=== PATIENT | male | born 1955 | race Caucasian/White ===

== ENCOUNTER 2018-09-11 10:29 | Inpatient (IN) ==
[2018-09-11] MEDS ORDERED: *HR* FentaNYL (PF) 100 MCG/2 ML VIAL ONE ×2 (11:14→15:10)
[2018-09-11] MEDS ORDERED: Ondansetron 4 MG/2 ML VIAL ONE (11:14)
[2018-09-11] MEDS ORDERED: Dexamethasone 4 MG/ML VIAL ONE (11:14)
[2018-09-11] MEDS ORDERED: Lidocaine -MPF 2% 2 ML VIAL ONE (11:14)
[2018-09-11] MEDS ORDERED: *HR* Succinylcholine 200 MG/10 ML VIAL IVP ONE (11:14)
[2018-09-11] MEDS ORDERED: *HR* Propofol 200 MG/20 ML VIAL IVP ONE (11:14)
--- NOTE | 2018-09-11 11:15 | Anesthesia Evaluation PreOp ---
Date of Encounter: 09/11/18 Time of Encounter: 11:00 - Past History Planned Operation: take down colostomy Cardiac History: [place], HTN, Hyperlipidemia, Arrhythmia (a.fib, chronic anticoagulant therapy, held for surgery), Other (poor functional capacity, left lower extremity amputee, uses wheelchair most of the time.) Pulmonary History: Denies Any Significant HX ART HISTORIAN History: CVA, TIA, Other (Evidence of stroke or some intracranial event. Patient has poor vision, is poor historian generally but is oriented to person, place and circumstance. Has poor memory.) Other Medical History: Diabetes Type II Anesthesia History: No Prior Anesthetic Complications, Past Anesthesia Alcohol Use: none Drug use: none Medications and Allergies Atorvastatin [Lipitor] 40 mg PO HS 06/10/18 [History] Clopidogrel [Plavix] 75 mg PO DAILY 06/10/18 [History] Folic Acid 1 mg PO DAILY 06/10/18 [History] Furosemide [Lasix] 60 mg PO DAILY 06/10/18 [History] Isosorbide MONOnitrate (24 HR) [Imdur] 30 mg PO DAILY 06/10/18 [History] Metoprolol Succinate [Toprol Xl] 25 mg PO DAILY 06/10/18 [History] Multivit,Th Iron,Other Min [Therems-M] 1 tab PO DAILY 06/10/18 [History] Potassium Chloride [K-Tab ER] 20 meq PO DAILY 06/10/18 [History] metFORMIN [Glucophage] 500 mg PO BIDWM 06/10/18 [History] Aspirin 81 mg PO DAILY 30 Days #30 tab.chew 06/22/18 [Rx] Omeprazole [PriLOSEC] 20 mg PO DAILY@0630 capsule. 06/22/18 [Rx] Allergy/AdvReac Type Severity Reaction Status Date / Time No Known Allergies Allergy Verified 06/09/18 23:56 - Meds/Allergy Pre-op Review Medications Reviewed: Yes Allergies Reviewed: Yes Beta Blockers on Current Med List: Yes Anesthesia Results - Labs Laboratory Tests 08/21/18 08/21/18 08/21/18 12:00 12:00 12:00 WBC 9.0 Hgb 12.5 L Hct 38.5 Plt Count 223 PT 12.5 H INR 1.1 APTT 34.0 Sodium 138 Potassium 4.3 Chloride 105 Carbon Dioxide 28 BUN 17 Creatinine 0.74 - Imaging EKG: report reviewed, image reviewed (a. fib, stable) Additional studies: EF EF 55%, severely dilated left atrium , dilated aortic root, normal LV function. CT of head chronic bilateral occipital infarcts, stable lacunar infarcts in left cerebellar hemisphere. Anesthesia Exam Selected Entries 09/11/18 10:56 Temperature 98.0 F Pulse Rate 81 Respiratory Rate 18 Blood Pressure 115/73 O2 Sat by Pulse Oximetry 98 Weight: 97 kg, BMI 33 NPO (# of Hours): over 8 hours - HEENT Pupil (Motor): Pupils equal Teeth: Edentulous Oral Opening: Greater than 3 (full matthews) - Cardiac Rhythm: Irregular Murmur: None - Pulmonary Breath Sounds: bilateral Clear Respiratory Effort: Symmetrical Anesthesia Assess/Plan ASA Score: 3 Level of consciousness: Cooperative Anesthetic Plan: General Monitoring Plan: Standard Monitors Recovery Plan: PACU (Discussed GA, risks. Agreed to proceed.)
[2018-09-11] MEDS ORDERED: CeFAZolin Syr 2,000MG/20 ML 2,000 MG/20 ML SYRINGE IVPB ONE (11:34)
[2018-09-11] MEDS ORDERED: MetroNIDAZOLE 500 MG/100 ML 500 MG/100 ML BAG IVPB ONE (11:41)
[2018-09-11] MEDS ORDERED: Ringers Solution, Lactated 1,000 ML IVC SCH (11:45)
--- NOTE | 2018-09-11 11:58 | General Surg History&Physical ---
Date of Encounter: 09/11/18 Time of Encounter: 11:56 Assessment and Plan (1) Status post Amanda procedure Current Visit: Yes Status: Acute 63M s/p noyola's procedure 2/2 sigmoid volvulus; now presents for takedown of colostomy; patient had thorough cardiac evaluation; okay to proceed with surgery; The assessment and plan as outlined above was discussed with the patient and/or family members who expressed understanding and agreement. All questions were answered. History of Present Illness Chief complaint: colostomy takedown HPI: Mr. Stone is a 63 year old male previously evaluated for sigmoid volvulus s/p Noyola's procedure. The patient's post operative course was complicated by concerns for TIA. He subsequently underwent a R CEA. He also had a colostomy and evaluation of the rectal stump without evidence of malignancy. He now presents for takedown of his colostomy. 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, tonsillectomy, colon resection (Amanda's procedure), neck-artery - Social History Smoking Status: Never smoker Smokeless Tobacco Status: No Alcohol use: none Drug use: none - Additional Family History Additional family history: non contributory Medications and Allergies Atorvastatin [Lipitor] 40 mg PO HS 06/10/18 [History] Clopidogrel [Plavix] 75 mg PO DAILY 06/10/18 [History] Folic Acid 1 mg PO DAILY 06/10/18 [History] Furosemide [Lasix] 60 mg PO DAILY 06/10/18 [History] Isosorbide MONOnitrate (24 HR) [Imdur] 30 mg PO DAILY 06/10/18 [History] Metoprolol Succinate [Toprol Xl] 25 mg PO DAILY 06/10/18 [History] Multivit,Th Iron,Other Min [Therems-M] 1 tab PO DAILY 06/10/18 [History] Potassium Chloride [K-Tab ER] 20 meq PO DAILY 06/10/18 [History] metFORMIN [Glucophage] 500 mg PO BIDWM 06/10/18 [History] Aspirin 81 mg PO DAILY 30 Days #30 tab.chew 06/22/18 [Rx] Omeprazole [PriLOSEC] 20 mg PO DAILY@0630 capsule. 06/22/18 [Rx] Allergy/AdvReac Type Severity Reaction Status Date / Time No Known Allergies Allergy Verified 06/09/18 23:56 Review of Systems All systems PM: 12 point ROS negative besides HPI findings General Surgery Exam Initial Vital Signs Temp Pulse Resp BP Pulse Ox 98.0 F 81 18 115/73 98 09/11/18 10:56 09/11/18 10:56 09/11/18 10:56 09/11/18 10:56 09/11/18 10:56 - General physical appearance no distress - Eyes normal ocular movement - ENT normocephalic - Neck no lymphadectomy - Respiratory normal expansion, normal respiratory effort - Cardiovascular Cardiovascular exam: Present: RRR - Abdomen Abdomen general surgery: Present: soft, non tender - Rectum Rectum: Present: other (viable and functioning colostomy) - Neurologic Present: CN 2-12 grossly intact - Musculoskeletal Present: normal posture - Psychiatric Psychiatric general surgery: Present: A&Ox3 Results - Labs All other labs normal.
[2018-09-11] MEDS ORDERED: *HR* Rocuronium Bromide 50 MG/5 ML VIAL ONE ×2 (12:27→14:40)
[2018-09-11] MEDS ORDERED: *HR* Morphine 2 MG/ML SYRINGE IVP PRN (13:26)
[2018-09-11] MEDS ORDERED: Ondansetron 4 MG/2 ML VIAL IVP ONE (13:26)
[2018-09-11] MEDS ORDERED: *HR* OxyCODONE Immed Rel 5 MG TABLET PO PRN (13:26)
[2018-09-11] MEDS ORDERED: *HR* Labetalol 20 MG/4 ML SYRINGE IVP PRN (13:26)
[2018-09-11] MEDS ORDERED: Dexamethasone 4 MG/ML VIAL IVP ONE (13:26)
[2018-09-11] MEDS ORDERED: *HR* Morphine 10 MG/ML VIAL ONE ×2 (14:13→15:44)
[2018-09-11] MEDS ORDERED: Neostigmine Methylsulfate 3 MG/3 ML SYRINGE ONE (15:44)
--- NOTE | 2018-09-11 16:39 | Operative Note ---
Date of procedure: 09/11/18 Pre-op diagnosis: Sigmoid Volvulus s/p Noyola's Post-op diagnosis: same Procedure: exploratory laparotomy lysis of adhesions colostomy takedown Implants: none Complications: none Anesthesia: GETA Local Anesthetics: 0.5% Sensorcaine HCL SubQ (cc) Surgeon: Jaime Reid Was there an dental office assistant present: Yes Photography Assistant: Donna Singer Estimated blood loss (cc): 150 Specimen: sigmoid colon, rectum, anastamotic ring Condition: stable Disposition: PACU Procedure in Detail: Patient was brought into the operating room suite. placed in supine position mechanical DT prophylaxis was placed patient underwent smooth induction of anesthesia preoperative antibitoics were given Patient was prepped and draped in the usual fashion A time out was held identifying correct patient, pathology, procedure, and physician I started by creating a circumferential incision around the colostomy within the skin using the cut function of the bovie. I dissected through the skin and soft tissue as well as adhesions until I was able to 1.) visualize the bowel wall and 2.) ensure that it was freed from the surrounding soft tissue the entire circumference of the colon used for the colostomy. i then used the 10 blade to cut through the midline incision through the abdominal wall layers until i entered the abdomen. Of note, there was significant scarring of the midline even through the subcutaneous tissue. I then retrieved the colon from the colostomy site into the abdomen. I was able to identify the rectal stump because of the prolene sutures. I then mobolize the rectal stump on the lateral and medial aspects as well as anteriorly. this allowed for about another 3cm of rectum for the anastamosis. I should include here that the patient did stop his ASA and plavix about 3-4 days prior to surgery so there was generalized oozing from the subutaneous tissue as well as the mesentery. This was all controlled with electrocautery. I then excited the distal end of the colon which was used for the colostomy, used the automatic pursestringer and dilated up to a size 29 for the EEA stapler. I inserted the anvil and secured the bowel to the anvl. I then turned my attention to the rectal stump, excised the edge containing the susan and prolene sutures and dilated up to accept a size 29 stapler. It was noted at this time that there was an unexpected amount of stool within the rectal stump. This was evacuated manually, but not completely. The stapler was inserted, the male part went inferior to the stapler in the midline of the staple line, connected with the anvil in the colon, and engaged to create the anastamosis. When looking at the anastamotic ring, I felt that the posterior wall was thin and questionable. I then made the decision to circumferentially reinforce the staple line with 3-0 silk. I then tested the anastamosis by filling the pelvis with saline and insufflating air through the rectum. I occluded the bowel p roximal to the anastamosis. The colon proximal to the anastamosis, but distal to where I occluded, did fill with air. There were no bubbles seen. This was tested multiple times with the same result. The anastamosis did seem a little edematous so I left a 19fr errol drain at the anastamosis along the posterior aspect. I then secured the drain with 3-0 prolene suture I closed the midline fascia with a running, looped PDS suture. I closed the fascia where the colostomy was sited in a running fashion with a #1 PDS suture. I used 3-0 vicryl to reapproximate the deep layer. I stapled the skin closed as well as the skin at the colostomy site. I concluded the procedure. I used all of the local anesthetic The patient tolerated the procedure and was escorted to PACU in stable cond ition.
--- NOTE | 2018-09-11 17:57 | Anesthesia Evaluation Post Op ---
Date of Encounter: 09/11/18 Time of Encounter: 15:25 - Vital Signs Vital Signs: Selected Entries 09/11/18 17:21 Temperature 97.9 F Pulse Rate 102 Respiratory Rate 12 Blood Pressure 124/87 O2 Sat by Pulse Oximetry 93 - Lungs Lungs: Clear Ascult./Percussion - Cardiovascular Regular Rate - Mental Status Mental Status: Alert & Oriented, Answers Appropriately - Nausea Vomiting Nausea Vomiting: Not Present - Hydration Hydration: NPO - Discharge PostOp Status: Transfer Patient to floor
[2018-09-11] MEDS ORDERED: Naloxone 0.4 MG/ML INJ IVP PRN ×2 (18:04)
[2018-09-11] MEDS ORDERED: *HR* Metoprolol 5 MG/5 ML VIAL IVP PRN (18:04)
[2018-09-11] MEDS: *HR* Morphine 30 MG/ 30 ML PCA IVC PRN (18:53)
[2018-09-11] MEDS: 0.9 % Sodium Chloride 1,000 ML IVC SCH (19:00)
[2018-09-12 06:34] LABS: Basophils % 0.1 %; Hematocrit 26.2 % (37.5-50.1); Hemoglobin 8.6 g/dL (12.9-16.9); Immature Granulocytes % 0.3 % (0-4); Lymphocytes # 0.6 K/mcL (0.6-4.6); Mean Corpuscular HGB Conc 32.8 g/dL (31.6-35.5); Mean Corpuscular Hemoglobin 31.2 pg (28.0-33.3); Mean Corpuscular Volume 94.9 fL (83.0-100.0); Mean Platelet Volume 11.6 fL (9.4-12.4); Monocytes # 1.3 K/mcL (0.0-1.3); Monocytes % 9.3 %; Neutrophils # 12.3 K/mcL (1.6-8.9); Platelet Count 175 K/mcL (140-400); Red Blood Count 2.76 M/mcL (4.19-5.50); Red Cell Distribution Width 13.5 % (11.5-14.5); Segmented Neutrophils % 86.3 %
[2018-09-12 06:52] LABS: BUN/Creatinine Ratio 13 (6-26); Blood Urea Nitrogen 19 mg/dL (8-23); Calcium 7.7 mg/dL (8.6-10.3); Carbon Dioxide 22 mEq/L (23-29); Chloride 111 mEq/L (98-107); Glucose 224 mg/dL (70-105); Magnesium 1.3 mg/dL (1.6-2.6); Osmolality,Calculated 299 (280-300); Phosphorous 3.7 mg/dL (2.7-4.5); Potassium 4.4 mEq/L (3.5-5.1); Sodium 140 mEq/L (136-145); eGFR For Non-African Americans 51 (> 60)
[2018-09-12] MEDS: Pantoprazole 40 MG VIAL IVP SCH (08:50)
[2018-09-12] MEDS: *HR* Heparin 5,000 UNIT/ML VIAL SQ SCH ×2 (08:50→18:38)
[2018-09-12] MEDS ORDERED: 0.9 % Sodium Chloride 500 ML IVC ONE ×3 (11:32→16:48)
[2018-09-12] MEDS ORDERED: Ondansetron 4 MG/2 ML VIAL IVP PRN (11:33)
[2018-09-12] MEDS ORDERED: D5% in 0.45% NACL w KCl 20 MEQ/1,000 ML MLS IVC SCH (12:00)
--- NOTE | 2018-09-12 14:43 | General Surgery Progress Note ---
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, add iv ofirmev daily dressing changes OOB to chair BID prn antiemetics diamond for acute urinary retention and dehydration/bolus 1 L NS, monitor UOP daily labs (2) Hypertension Current Visit: No Status: Chronic Qualifiers: Hypertension type: unspecified Qualified Code(s): I10 - Essential (primary) hypertension (3) Diabetes Current Visit: No Status: Chronic continue ivf hydration wiht NS MBS, SSI, monitor Qualifiers: Diabetes mellitus type: type 2 Diabetes mellitus retirement insulin use: without retirement use Diabetes mellitus complication status: with unspecified complications Qualified Code(s): E11.8 - Type 2 diabetes mellitus with unspecified complications (4) Acute kidney injury Current Visit: Yes Status: Acute bolus 1 L NS trend Cr monitor UOP (5) Urinary retention Current Visit: Yes Status: Acute diamond placed, monitor I/O's Subjective Patient reports: no new complaints, still having pain, no flatus, no bowel movement, nausea, afebrile Objective Vital Signs - Last 8 Hours Temp Pulse Resp BP Pulse Ox 09/12/18 11:58 97.6 F 96 15 94/52 92 09/12/18 06:48 97.8 F 108 14 96/60 94 Intake and Output 09/11/18 09/12/18 09/12/18 23:59 07:59 15:59 Intake Total 0 / 0 0 / 0 0 / 0 Output Total 220 / 220 40 / 40 320 / 320 Balance -220 / -220 -40 / -40 -320 / -320 Intake: Oral 0 / 0 0 / 0 0 / 0 Output: Urine 0 / 0 0 / 0 Estimated Blood Loss 150 / 150 Catheter 300 / 300 Wound Drainage 70 / 70 40 / 40 20 / 20 Right Lower Quadrant 50 / 50 40 / 40 20 / 20 Other: Meal NPO Percent of Meal Consumed 0% # Bowel Movements 0 0 Weight 97.1 kg Blood Glucose* 179 226 175 Patient Weight 09/12/18 23:59 Weight 97.1 kg - General physical appearance well developed, no distress, moderate pain - Eyes PERRL, normal ocular movement - ENT normal mucosa, normocephalic - Neck Neck exam: trachea midline - Respiratory normal expansion, clear to auscultation - Cardiovascular Cardiovascular exam: Present: RRR - Abdomen Abdomen: Present: soft, tender (appropriate post op tenderness). Absent: bowel sounds present, distended, guarding, rebound - Incision Incision: Present: swollen, clean and dry, intact - Rectum normal sphincter tone - Integumentary no growths - Neurologic CN 2-12 grossly intact - Musculoskeletal normal posture - Psychiatric oriented to time, oriented to person, oriented to place, speech is normal, memory intact - Labs 09/12/18 05:59 09/12/18 05:59 Diabetes panel 09/12/18 Range/Units 05:59 Sodium 140 (136-145) mEq/L Potassium 4.4 (3.5-5.1) mEq/L Chloride 111 H (98-107) mEq/L Carbon Dioxide 22 L (23-29) mEq/L BUN 19 (8-23) mg/dL Creatinine 1.41 H (0.70-1.30) mg/dL Glucose 224 H (70-105) mg/dL Calcium 7.7 L (8.6-10.3) mg/dL Calcium panel 09/12/18 Range/Units 05:59 Calcium 7.7 L (8.6-10.3) mg/dL Phosphorus 3.7 (2.7-4.5) mg/dL Pituitary panel 09/12/18 Range/Units 05:59 Sodium 140 (136-145) mEq/L Potassium 4.4 (3.5-5.1) mEq/L Chloride 111 H (98-107) mEq/L Carbon Dioxide 22 L (23-29) mEq/L BUN 19 (8-23) mg/dL Creatinine 1.41 H (0.70-1.30) mg/dL Glucose 224 H (70-105) mg/dL Calcium 7.7 L (8.6-10.3) mg/dL Adrenal panel 09/12/18 Range/Units 05:59 Sodium 140 (136-145) mEq/L Potassium 4.4 (3.5-5.1) mEq/L Chloride 111 H (98-107) mEq/L Carbon Dioxide 22 L (23-29) mEq/L BUN 19 (8-23) mg/dL Creatinine 1.41 H (0.70-1.30) mg/dL Glucose 224 H (70-105) mg/dL Calcium 7.7 L (8.6-10.3) mg/dL - VTE Documentation of Mechanical Device: Intermittent pneumatic compression device Consult Discharge Plan - Plan Referrals: Herbert Sargent MD [Primary Care Provider] -
[2018-09-12] MEDS ORDERED: *HR* Dextrose 50 % in Water (Syg) 50 ML SYRINGE IVP PRN (14:44)
[2018-09-12] MEDS ORDERED: Dextrose Gel 15 GM/37.5 ML TUBE PO PRN ×2 (14:44)
[2018-09-12] MEDS ORDERED: D5% in Water 1,000 ML IVC PRN (14:44)
[2018-09-12] MEDS ORDERED: 0.9 % Sodium Chloride 500 ML ONE (15:14)
[2018-09-12] MEDS: Acetaminophen IV 1,000 MG/100 ML INFUS..BTL IVPB SCH (17:43)
[2018-09-12] MEDS: 0.9 % Sodium Chloride 1,000 ML IVC SCH ×2 (18:00→20:11)
[2018-09-12 18:14] LABS: Basophils % 0.1 %; Hematocrit 22.8 % (37.5-50.1); Hemoglobin 7.5 g/dL (12.9-16.9); Immature Granulocytes % 0.4 % (0-4); Lymphocytes % 7.3 %; Mean Corpuscular HGB Conc 32.9 g/dL (31.6-35.5); Mean Corpuscular Hemoglobin 31.6 pg (28.0-33.3); Mean Corpuscular Volume 96.2 fL (83.0-100.0); Mean Platelet Volume 10.5 fL (9.4-12.4); Monocytes # 1.8 K/mcL (0.0-1.3); Monocytes % 13.1 %; Neutrophils # 10.6 K/mcL (1.6-8.9); Platelet Count 152 K/mcL (140-400); Red Blood Count 2.37 M/mcL (4.19-5.50); Red Cell Distribution Width 13.6 % (11.5-14.5); Segmented Neutrophils % 79.1 %
[2018-09-12] MEDS: Insulin LISPRO 300 UNITS/3 ML VIAL SQ SCH (18:37)
[2018-09-12] MEDS ORDERED: 0.9 % Sodium Chloride 250 ML ONE (22:26)
[2018-09-13] MEDS: Acetaminophen IV 1,000 MG/100 ML INFUS..BTL IVPB SCH ×5 (01:00→23:33)
[2018-09-13] MEDS: 0.9 % Sodium Chloride 1,000 ML IVC SCH ×4 (02:45→23:31)
[2018-09-13] MEDS ORDERED: 0.9 % Sodium Chloride 250 ML ONE (02:58)
[2018-09-13] MEDS: Insulin LISPRO 300 UNITS/3 ML VIAL SQ SCH ×5 (03:26→23:31)
[2018-09-13 07:52] LABS: Basophils % 0.2 %; Eosinophils % 0.2 %; Hemoglobin 8.9 g/dL (12.9-16.9); Immature Granulocytes % 0.3 % (0-4); Lymphocytes # 1.4 K/mcL (0.6-4.6); Lymphocytes % 11.6 %; Mean Corpuscular Hemoglobin 31.1 pg (28.0-33.3); Mean Corpuscular Volume 94.4 fL (83.0-100.0); Mean Platelet Volume 10.8 fL (9.4-12.4); Monocytes # 1.5 K/mcL (0.0-1.3); Monocytes % 12.4 %; Neutrophils # 9.4 K/mcL (1.6-8.9); Platelet Count 125 K/mcL (140-400); Red Blood Count 2.86 M/mcL (4.19-5.50); Red Cell Distribution Width 14.3 % (11.5-14.5); Segmented Neutrophils % 75.3 %
[2018-09-13] MEDS: *HR* Morphine 30 MG/ 30 ML PCA IVC PRN (08:11)
[2018-09-13 08:18] LABS: BUN/Creatinine Ratio 18 (6-26); Blood Urea Nitrogen 25 mg/dL (8-23); Calcium 7.5 mg/dL (8.6-10.3); Carbon Dioxide 19 mEq/L (23-29); Chloride 117 mEq/L (98-107); Glucose 122 mg/dL (70-105); Magnesium 1.8 mg/dL (1.6-2.6); Osmolality,Calculated 302 (280-300); Phosphorous 2.2 mg/dL (2.7-4.5); Potassium 4.1 mEq/L (3.5-5.1); Sodium 143 mEq/L (136-145); eGFR For Non-African Americans 53 (> 60)
[2018-09-13] MEDS: Pantoprazole 40 MG VIAL IVP SCH (09:36)
--- NOTE | 2018-09-13 12:12 | General Surgery Progress Note ---
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 Diabetes mellitus complication status: with unspecified complications Qualified Code(s): E11.8 - Type 2 diabetes mellitus with unspec ified complications (4) Acute kidney injury Current Visit: Yes Status: Acute continue diamond continue ivf trend Cr monitor UOP (5) Urinary retention Current Visit: Yes Status: Acute continue diamond Subjective Patient reports: no new complaints, still having pain, pain is less, no flatus, no bowel movement, afebrile Objective Vital Signs - Last 8 Hours Temp Pulse Resp BP Pulse Ox 09/13/18 09:00 97.5 F L 100 15 97/60 96 09/13/18 06:19 97.6 F 103 14 113/69 Intake and Output 09/12/18 09/13/18 09/13/18 23:59 07:59 15:59 Intake Total 1204 / 1204 1894 / 1894 1000 / 1000 Output Total 685 / 685 Balance 1191 / 1191 1894 / 1894 315 / 315 Intake: IV Fluids 1204 / 1204 1194 / 1194 1000 / 1000 0.9 % Sodium Chloride 1,000 ML 1000 / 1000 1000 / 1000 @ 125 mls/hr IVC .Q8H [facility] Rx#: [id number] 0.9 % Sodium Chloride 500 ML @ 1000 / 1000 999 mls/hr IVC .Q31M ONE Rx#: [id number] Ofirmev 1,000 mg/100 ml 1,000 100 / 100 194 / 194 mg In 100 ml @ 400 mls/hr IVPB Q6HR [facility] Rx#:[id number] Magnesium Sulfate 2 GM In 0.9 % 104 / 104 Sodium Chloride 100 ML @ 104 mls/hr IVPB ONCE ONE Rx#: [id number] Oral 0 / 0 0 / 0 0 / 0 Blood Product 0 / 0 700 / 700 Rbcs Leuko Poor As-1 Unit 350 / 350 [id number] Rbcs Leuko Poor As-1 Unit 0 / 0 350 / 350 [id number] Output: Urine 0 / 0 Catheter 650 / 650 Wound Drainage Right Lower Quadrant Other: Meal npo Percent of Meal Consumed 0% Blood Glucose* 142 118 - General physical appearance well developed, no distress, other (pale) - Eyes normal ocular movement - ENT dry mucosa, normocephalic - Neck Neck exam: trachea midline - Respiratory normal expansion, clear to auscultation - Cardiovascular Cardiovascular exam: Present: RRR - Abdomen Abdomen: Present: bowel sounds present, soft, tender (appropriate post op tenderness). Absent: guarding, rebound Additional Comments: PAPITO drain serous drainage - Incision Incision: Present: clean and dry, open (packed -serosang drainage) - Genitourinary other (diamond with clear yellow urine) - Integumentary no rash, no growths - Musculoskeletal normal posture - Psychiatric oriented to time, oriented to person, oriented to place, speech is normal, memory intact - Labs 09/13/18 07:40 09/13/18 07:40 Diabetes panel 09/13/18 Range/Units 07:40 Sodium 143 (136-145) mEq/L Potassium 4.1 (3.5-5.1) mEq/L Chloride 117 H (98-107) mEq/L Carbon Dioxide 19 L (23-29) mEq/L BUN 25 H (8-23) mg/dL Creatinine 1.36 H (0.70-1.30) mg/dL Glucose 122 H (70-105) mg/dL Calcium 7.5 L (8.6-10.3) mg/dL Calcium panel 09/13/18 Range/Units 07:40 Calcium 7.5 L (8.6-10.3) mg/dL Phosphorus 2.2 L (2.7-4.5) mg/dL Pituitary panel 09/13/18 Range/Units 07:40 Sodium 143 (136-145) mEq/L Potassium 4.1 (3.5-5.1) mEq/L Chloride 117 H (98-107) mEq/L Carbon Dioxide 19 L (23-29) mEq/L BUN 25 H (8-23) mg/dL Creatinine 1.36 H (0.70-1.30) mg/dL Glucose 122 H (70-105) mg/dL Calcium 7.5 L (8.6-10.3) mg/dL Adrenal panel 09/13/18 Range/Units 07:40 Sodium 143 (136-145) mEq/L Potassium 4.1 (3.5-5.1) mEq/L Chloride 117 H (98-107) mEq/L Carbon Dioxide 19 L (23-29) mEq/L BUN 25 H (8-23) mg/dL Creatinine 1.36 H (0.70-1.30) mg/dL Glucose 122 H (70-105) mg/dL Calcium 7.5 L (8.6-10.3) mg/dL - VTE Documentation of Mechanical Device: Intermittent pneumatic compression device Consult Discharge Plan - Plan Referrals: Herbert Sargent MD [Primary Care Provider] -
[2018-09-14] MEDS: 0.9 % Sodium Chloride 1,000 ML IVC SCH ×3 (04:25→22:00)
[2018-09-14 05:14] LABS: Basophils # 0.1 K/mcL (0.0-0.2); Basophils % 0.6 %; Eosinophils # 0.2 K/mcL (0.0-0.6); Eosinophils % 2.1 %; Hemoglobin 8.2 g/dL (12.9-16.9); Immature Granulocytes % 0.4 % (0-4); Lymphocytes # 1.2 K/mcL (0.6-4.6); Lymphocytes % 12.8 %; Mean Corpuscular HGB Conc 32.8 g/dL (31.6-35.5); Mean Corpuscular Hemoglobin 31.2 pg (28.0-33.3); Mean Corpuscular Volume 95.1 fL (83.0-100.0); Monocytes % 11.4 %; Neutrophils # 6.5 K/mcL (1.6-8.9); Platelet Count 118 K/mcL (140-400); Red Blood Count 2.63 M/mcL (4.19-5.50); Red Cell Distribution Width 14.4 % (11.5-14.5); Segmented Neutrophils % 72.7 %
[2018-09-14 05:33] LABS: BUN/Creatinine Ratio 16 (6-26); Blood Urea Nitrogen 14 mg/dL (8-23); Calcium 7.6 mg/dL (8.6-10.3); Carbon Dioxide 21 mEq/L (23-29); Chloride 112 mEq/L (98-107); Glucose 89 mg/dL (70-105); Magnesium 1.7 mg/dL (1.6-2.6); Osmolality,Calculated 292 (280-300); Phosphorous 1.9 mg/dL (2.7-4.5); Potassium 3.6 mEq/L (3.5-5.1); Sodium 141 mEq/L (136-145); eGFR For Non-African Americans > 60 (> 60)
[2018-09-14] MEDS: Acetaminophen IV 1,000 MG/100 ML INFUS..BTL IVPB SCH ×3 (06:00→18:59)
[2018-09-14] MEDS: Insulin LISPRO 300 UNITS/3 ML VIAL SQ SCH ×3 (06:23→17:03)
[2018-09-14] MEDS ORDERED: Calcium Gluconate 2,000 MG in 0.9 % Sodium Chloride 100 ML IVPB ONE (08:07)
[2018-09-14] MEDS ORDERED: Potassium Phosphate 44 MEQ in 0.9 % Sodium Chloride 250 ML IVPB ONE (08:07)
--- NOTE | 2018-09-14 08:12 | General Surgery Progress Note ---
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 while awake Gi: NPO except ice chips; start TPN today; cont IV protonix; awaiting return of bowel function Gu: cont with diamond catheter for monitoring of UOP; will plan for possible d/c on 09/15 ID: WBC wnl; afebrile; if normal tomorrow, okay to stop checking heme: trend h/h; may need another transfusion if he continues to drop his h/h endo: glucose wnl; cont to monitor MSK: OOBTC, PT/OT FEN: start TPN today; hypocalcemia (give calcium gluconate), hypomagnesemia (give magnesium sulfate); hypophosphatemia and hypokalemia (give potassium phosphate); okay for ice chips; Disp: cont cares on floor; Subjective Patient reports: no new complaints, feels better, still having pain, pain is less (rated 5/10), no flatus, no bowel movement, afebrile, other (urinary retention over the weekend; good UOP; currently on ice chips; ) Objective Vital Signs - Last 8 Hours Temp Pulse Resp BP Pulse Ox 09/14/18 07:38 97.6 F 91 16 137/83 98 09/14/18 04:29 97.5 F L 100 18 163/84 97 Intake and Output 09/13/18 09/14/18 09/14/18 23:59 07:59 15:59 Intake Total 1250 / 1250 1050 / 1050 Output Total 600 / 600 600 / 600 Balance 650 / 650 450 / 450 Intake: IV Fluids 1200 / 1200 1000 / 1000 0.9 % Sodium Chloride 1,000 ML 1000 / 1000 1000 / 1000 @ 125 mls/hr IVC .Q8H [facility] Rx#: [id number] Ofirmev 1,000 mg/100 ml 1,000 200 / 200 mg In 100 ml @ 400 mls/hr IVPB Q6HR [facility] Rx#:[id number] Oral 50 / 50 50 / 50 Output: Catheter 550 / 550 600 / 600 Wound Drainage 50 / 50 0 / 0 Right Lower Quadrant 50 / 50 0 / 0 Other: Blood Glucose* 97 96 - General physical appearance no distress - ENT normocephalic - Neck Neck exam: no lymphadectomy - Respiratory normal expansion, normal respiratory effort - Cardiovascular Cardiovascular exam: Present: RRR - Abdomen Abdomen: Present: soft, tender (appropriately tender along incision) - Incision Incision: Present: clean and dry, intact - Neurologic CN 2-12 grossly intact - Labs 09/14/18 04:57 09/14/18 04:57 Diabetes panel 09/13/18 09/14/18 Range/Units 07:40 04:57 Sodium 143 141 (136-145) mEq/L Potassium 4.1 3.6 (3.5-5.1) mEq/L Chloride 117 H 112 H (98-107) mEq/L Carbon Dioxide 19 L 21 L (23-29) mEq/L BUN 25 H 14 (8-23) mg/dL Creatinine 1.36 H 0.85 (0.70-1.30) mg/dL Glucose 122 H 89 (70-105) mg/dL Calcium 7.5 L 7.6 L (8.6-10.3) mg/dL Calcium panel 09/13/18 09/14/18 Range/Units 07:40 04:57 Calcium 7.5 L 7.6 L (8.6-10.3) mg/dL Phosphorus 2.2 L 1.9 L (2.7-4.5) mg/dL Pituitary panel 09/13/18 09/14/18 Range/Units 07:40 04:57 Sodium 143 141 (136-145) mEq/L Potassium 4.1 3.6 (3.5-5.1) mEq/L Chloride 117 H 112 H (98-107) mEq/L Carbon Dioxide 19 L 21 L (23-29) mEq/L BUN 25 H 14 (8-23) mg/dL Creatinine 1.36 H 0.85 (0.70-1.30) mg/dL Glucose 122 H 89 (70-105) mg/dL Calcium 7.5 L 7.6 L (8.6-10.3) mg/dL Adrenal panel 09/13/18 09/14/18 Range/Units 07:40 04:57 Sodium 143 141 (136-145) mEq/L Potassium 4.1 3.6 (3.5-5.1) mEq/L Chloride 117 H 112 H (98-107) mEq/L Carbon Dioxide 19 L 21 L (23-29) mEq/L BUN 25 H 14 (8-23) mg/dL Creatinine 1.36 H 0.85 (0.70-1.30) mg/dL Glucose 122 H 89 (70-105) mg/dL Calcium 7.5 L 7.6 L (8.6-10.3) mg/dL - VTE Documentation of Mechanical Device: Intermittent pneumatic compression device Consult Discharge Plan - Plan Referrals: Herbert Sargent MD [Primary Care Provider] -
[2018-09-14] MEDS ORDERED: Lidocaine -MPF 1% 5 ML AMPUL INFILT ONE ×2 (08:26→12:23)
[2018-09-14] MEDS: Pantoprazole 40 MG VIAL IVP SCH (09:21)
[2018-09-14] MEDS ORDERED: D10% in Water 500 ML IVC PRN (13:00)
[2018-09-14] MEDS: *HR* Metoprolol 5 MG/5 ML VIAL IVP SCH ×2 (13:25→18:21)
[2018-09-14] MEDS ORDERED: Clinimix E 5%-15% SOLUTION 2,000 ML with MVI, adult with vitamin K 10 ML IVC SCH (17:00)
[2018-09-15] MEDS: Acetaminophen IV 1,000 MG/100 ML INFUS..BTL IVPB SCH ×4 (01:29→17:27)
[2018-09-15] MEDS: *HR* Metoprolol 5 MG/5 ML VIAL IVP SCH ×5 (01:31→17:28)
[2018-09-15] MEDS: Insulin LISPRO 300 UNITS/3 ML VIAL SQ SCH ×4 (01:39→17:28)
[2018-09-15] MEDS: 0.9 % Sodium Chloride 1,000 ML IVC SCH ×3 (06:57→23:28)
[2018-09-15 07:33] LABS: BUN/Creatinine Ratio 14 (6-26); Blood Urea Nitrogen 8 mg/dL (8-23); Calcium 7.6 mg/dL (8.6-10.3); Carbon Dioxide 24 mEq/L (23-29); Chloride 112 mEq/L (98-107); Glucose 143 mg/dL (70-105); Magnesium 1.8 mg/dL (1.6-2.6); Osmolality,Calculated 291 (280-300); Phosphorous 2.2 mg/dL (2.7-4.5); Potassium 3.4 mEq/L (3.5-5.1); Sodium 140 mEq/L (136-145); Triglycerides 86 mg/dL (< 150); eGFR For Non-African Americans > 60 (> 60)
[2018-09-15] MEDS: Pantoprazole 40 MG VIAL IVP SCH (07:42)
[2018-09-15] MEDS ORDERED: Potassium Phosphate 44 MEQ in 0.9 % Sodium Chloride 250 ML IVPB ONE (07:59)
--- NOTE | 2018-09-15 08:16 | General Surgery Progress Note ---
Date of Encounter: 09/15/18 Time of Encounter: 08:10 - Assessment and Plan (1) Status post Amanda procedure Current Visit: Yes Status: Acute 63M POD #4 s/p colostomy takedown; post operatively with urinary retention and electrolyte abnormalities; cont pain regimen PT/OT, pulm toileting cont TPN, cont with ice chips; await return of bowel function replace electrolytes chemical DVt prophylaxis if h/h stable Subjective Patient reports: no new complaints, still having pain, pain is less, no flatus (although he feels as if he could have flatus) Objective Vital Signs - Last 8 Hours Temp Pulse Resp BP Pulse Ox 09/15/18 07:02 97.8 F 71 16 151/83 98 09/15/18 03:17 97.4 F L 80 14 156/101 99 Intake and Output 09/14/18 09/15/18 09/15/18 23:59 07:59 15:59 Intake Total 1480 / 1480 2185 / 2185 Output Total 1190 / 1190 1160 / 1160 Balance 290 / 290 1025 / 1025 Intake: IV Fluids 1360 / 1360 2185 / 2185 0.9 % Sodium Chloride 1,000 ML 1000 / 1000 1000 / 1000 @ 125 mls/hr IVC .Q8H [facility] Rx#: [id number] Clinimix E 5%-15% SOLUTION 2, 735 / 735 000 ML @ 50 mls/hr IVC .Q24H [facility] with M.v.i. Adult 10 ml Rx# :[id number] Ofirmev 1,000 mg/100 ml 1,000 100 / 100 200 / 200 mg In 100 ml @ 400 mls/hr IVPB Q6HR [facility] Rx#:[id number] Intralipid 20% 250 ML @ 21 mls/ 250 / 250 hr IVPB DAILY@1700 [facility] Rx#: [id number] Oral 120 / 120 0 / 0 Output: Catheter 1100 / 1100 1100 / 1100 Wound Drainage 90 / 90 60 / 60 Right Lower Quadrant 90 / 90 60 / 60 Other: Weight 100 kg Blood Glucose* 128 156 Patient Weight 09/15/18 23:59 Weight 100 kg - General physical appearance no distress - Respiratory normal expansion, normal respiratory effort - Cardiovascular Cardiovascular exam: Present: RRR - Abdomen Abdomen: Present: soft, tender (appropriatley tender to palpation) - Incision Incision: Present: clean and dry, intact - Neurologic CN 2-12 grossly intact - Labs 09/14/18 04:57 09/15/18 05:40 Diabetes panel 09/15/18 Range/Units 05:40 Sodium 140 (136-145) mEq/L Potassium 3.4 L (3.5-5.1) mEq/L Chloride 112 H (98-107) mEq/L Carbon Dioxide 24 (23-29) mEq/L BUN 8 (8-23) mg/dL Creatinine 0.56 L (0.70-1.30) mg/dL Glucose 143 H (70-105) mg/dL Calcium 7.6 L (8.6-10.3) mg/dL Triglycerides 86 (< 150) mg/dL Calcium panel 09/15/18 Range/Units 05:40 Calcium 7.6 L (8.6-10.3) mg/dL Phosphorus 2.2 L (2.7-4.5) mg/dL Pituitary panel 09/15/18 Range/Units 05:40 Sodium 140 (136-145) mEq/L Potassium 3.4 L (3.5-5.1) mEq/L Chloride 112 H (98-107) mEq/L Carbon Dioxide 24 (23-29) mEq/L BUN 8 (8-23) mg/dL Creatinine 0.56 L (0.70-1.30) mg/dL Glucose 143 H (70-105) mg/dL Calcium 7.6 L (8.6-10.3) mg/dL Adrenal panel 09/15/18 Range/Units 05:40 Sodium 140 (136-145) mEq/L Potassium 3.4 L (3.5-5.1) mEq/L Chloride 112 H (98-107) mEq/L Carbon Dioxide 24 (23-29) mEq/L BUN 8 (8-23) mg/dL Creatinine 0.56 L (0.70-1.30) mg/dL Glucose 143 H (70-105) mg/dL Calcium 7.6 L (8.6-10.3) mg/dL - VTE Documentation of Mechanical Device: Intermittent pneumatic compression device Consult Discharge Plan - Plan Referrals: Herbert Sargent MD [Primary Care Provider] -
[2018-09-15 08:24] LABS: Basophils % 0.4 %; Eosinophils # 0.2 K/mcL (0.0-0.6); Eosinophils % 3.1 %; Hematocrit 24.5 % (37.5-50.1); Immature Granulocytes % 0.3 % (0-4); Lymphocytes # 0.9 K/mcL (0.6-4.6); Lymphocytes % 11.1 %; Mean Corpuscular HGB Conc 32.7 g/dL (31.6-35.5); Mean Corpuscular Hemoglobin 30.7 pg (28.0-33.3); Mean Corpuscular Volume 93.9 fL (83.0-100.0); Mean Platelet Volume 11.4 fL (9.4-12.4); Monocytes # 0.7 K/mcL (0.0-1.3); Monocytes % 9.3 %; Neutrophils # 5.9 K/mcL (1.6-8.9); Platelet Count 115 K/mcL (140-400); Red Blood Count 2.61 M/mcL (4.19-5.50); Red Cell Distribution Width 13.8 % (11.5-14.5); Segmented Neutrophils % 75.8 %
[2018-09-15] MEDS: *HR* Morphine 30 MG/ 30 ML PCA IVC PRN (14:44)
[2018-09-15] MEDS ORDERED: Clinimix E 5%-15% SOLUTION 2,000 ML with MVI, adult with vitamin K 10 ML IVC SCH (17:00)
[2018-09-16] MEDS: Insulin LISPRO 300 UNITS/3 ML VIAL SQ SCH ×4 (00:34→17:40)
[2018-09-16] MEDS: *HR* Metoprolol 5 MG/5 ML VIAL IVP SCH ×4 (00:35→17:39)
[2018-09-16] MEDS: Acetaminophen IV 1,000 MG/100 ML INFUS..BTL IVPB SCH ×4 (00:35→17:38)
[2018-09-16 06:46] LABS: BUN/Creatinine Ratio 20 (6-26); Blood Urea Nitrogen 10 mg/dL (8-23); Carbon Dioxide 25 mEq/L (23-29); Chloride 110 mEq/L (98-107); Glucose 182 mg/dL (70-105); Magnesium 1.9 mg/dL (1.6-2.6); Osmolality,Calculated 294 (280-300); Phosphorous 2.8 mg/dL (2.7-4.5); Potassium 3.3 mEq/L (3.5-5.1); Sodium 140 mEq/L (136-145); eGFR For Non-African Americans > 60 (> 60)
[2018-09-16] MEDS: Pantoprazole 40 MG VIAL IVP SCH (07:18)
[2018-09-16 08:11] LABS: Hematocrit 28.7 % (37.5-50.1); Hemoglobin 9.5 g/dL (12.9-16.9)
[2018-09-16] MEDS ORDERED: Potassium Phosphate 44 MEQ in 0.9 % Sodium Chloride 250 ML IVPB ONE (08:31)
--- NOTE | 2018-09-16 08:32 | General Surgery Progress Note ---
Date of Encounter: 09/16/18 Time of Encounter: 08:29 - Assessment and Plan (1) Status post Amanda procedure Current Visit: Yes Status: Acute 63M POD #5 s/p colostomy takedown; post operatively with urinary retention and electrolyte abnormalities; cont pain regimen PT/OT, pulm toileting cont TPN, cont with ice chips; possible sips of clears; would prefer flatus first replace electrolytes chemical DVt prophylaxis d/c diamond Subjective Patient reports: no new complaints, feels better, still having pain, pain is less, bowel movement (bloody stool likely related to anastamosis; cannot recall flatus) Objective Vital Signs - Last 8 Hours Temp Pulse Resp BP Pulse Ox 09/16/18 07:10 98.4 F 68 13 144/80 94 09/16/18 04:11 98.0 F 80 14 181/83 98 Intake and Output 09/15/18 09/16/18 09/16/18 23:59 07:59 15:59 Intake Total 760 / 760 2551 / 2551 Output Total 310 / 310 1500 / 1500 0 / 0 Balance 450 / 450 1051 / 1051 0 / 0 Intake: IV Fluids 760 / 760 2311 / 2311 0.9 % Sodium Chloride 1,000 ML 400 / 400 839 / 839 @ 125 mls/hr IVC .Q8H [facility] Rx#: [id number] Clinimix E 5%-15% SOLUTION 2, 1022 / 1022 000 ML @ 70 mls/hr IVC .Q24H [facility] with M.v.i. Adult 10 ml Rx# :[id number] Ofirmev 1,000 mg/100 ml 1,000 100 / 100 200 / 200 mg In 100 ml @ 400 mls/hr IVPB Q6HR [facility] Rx#:[id number] Intralipid 20% 250 ML @ 21 mls/ 250 / 250 hr IVPB DAILY@1700 [facility] Rx#: [id number] Potassium Phosphate 44 MEQ In 0 260 / 260 .9 % Sodium Chloride 250 ML @ 40 mls/hr IVPB ONCE ONE Rx#: [id number] Oral 0 / 0 240 / 240 Output: Catheter 200 / 200 1350 / 1350 Wound Drainage 110 / 110 150 / 150 0 / 0 Right Lower Quadrant 110 / 110 150 / 150 0 / 0 Other: Meal NPO DINNER Stool Size Small Stool Color Brown Blood Tinged Blood Glucose* 140 139 - General physical appearance no distress - Respiratory normal expansion, normal respiratory effort - Cardiovascular Cardiovascular exam: Present: RRR - Abdomen Abdomen: Present: soft, non tender - Incision Incision: Present: clean and dry, intact - Integumentary no rash - Musculoskeletal normal posture - Labs 09/16/18 06:08 09/16/18 06:08 Diabetes panel 09/16/18 Range/Units 06:08 Sodium 140 (136-145) mEq/L Potassium 3.3 L (3.5-5.1) mEq/L Chloride 110 H (98-107) mEq/L Carbon Dioxide 25 (23-29) mEq/L BUN 10 (8-23) mg/dL Creatinine 0.50 L (0.70-1.30) mg/dL Glucose 182 H (70-105) mg/dL Calcium 8.0 L (8.6-10.3) mg/dL Calcium panel 09/16/18 Range/Units 06:08 Calcium 8.0 L (8.6-10.3) mg/dL Phosphorus 2.8 (2.7-4.5) mg/dL Pituitary panel 09/16/18 Range/Units 06:08 Sodium 140 (136-145) mEq/L Potassium 3.3 L (3.5-5.1) mEq/L Chloride 110 H (98-107) mEq/L Carbon Dioxide 25 (23-29) mEq/L BUN 10 (8-23) mg/dL Creatinine 0.50 L (0.70-1.30) mg/dL Glucose 182 H (70-105) mg/dL Calcium 8.0 L (8.6-10.3) mg/dL Adrenal panel 09/16/18 Range/Units 06:08 Sodium 140 (136-145) mEq/L Potassium 3.3 L (3.5-5.1) mEq/L Chloride 110 H (98-107) mEq/L Carbon Dioxide 25 (23-29) mEq/L BUN 10 (8-23) mg/dL Creatinine 0.50 L (0.70-1.30) mg/dL Glucose 182 H (70-105) mg/dL Calcium 8.0 L (8.6-10.3) mg/dL - VTE Documentation of Mechanical Device: Intermittent pneumatic compression device Consult Discharge Plan - Plan Referrals: Herbert Sargent MD [Primary Care Provider] -
[2018-09-16] MEDS: 0.9 % Sodium Chloride 1,000 ML IVC SCH ×2 (09:17→14:30)
[2018-09-16] MEDS ORDERED: Clinimix E 5%-15% SOLUTION 2,000 ML with MVI, adult with vitamin K 10 ML IVC SCH (17:00)
[2018-09-17] MEDS: Acetaminophen IV 1,000 MG/100 ML INFUS..BTL IVPB SCH ×4 (00:31→18:11)
[2018-09-17] MEDS: *HR* Metoprolol 5 MG/5 ML VIAL IVP SCH ×2 (00:33→05:50)
[2018-09-17] MEDS: Insulin LISPRO 300 UNITS/3 ML VIAL SQ SCH ×4 (01:01→17:00)
[2018-09-17 04:55] LABS: BUN/Creatinine Ratio 29 (6-26); Blood Urea Nitrogen 15 mg/dL (8-23); Calcium 7.8 mg/dL (8.6-10.3); Carbon Dioxide 25 mEq/L (23-29); Chloride 109 mEq/L (98-107); Glucose 149 mg/dL (70-105); Magnesium 1.9 mg/dL (1.6-2.6); Osmolality,Calculated 292 (280-300); Phosphorous 3.4 mg/dL (2.7-4.5); Potassium 3.4 mEq/L (3.5-5.1); Sodium 139 mEq/L (136-145); eGFR For Non-African Americans > 60 (> 60)
[2018-09-17] MEDS: *HR* Morphine 30 MG/ 30 ML PCA IVC PRN (07:39)
[2018-09-17] MEDS: 0.9 % Sodium Chloride 1,000 ML IVC SCH ×4 (07:51→22:30)
--- NOTE | 2018-09-17 09:47 | General Surgery Progress Note ---
Date of Encounter: 09/17/18 Time of Encounter: 09:46 - Assessment and Plan (1) S/P colostomy takedown Current Visit: Yes Status: Acute Continue with dressing changes. Will start patient on full liquids today. Continue to observe. Subjective Patient reports: no new complaints, other (She states that he is drinking clears and not having any nausea. States that he had 2 bowel movements; one yesterday and one early this morning. He described them as being liquid in nature.) Objective Vital Signs - Last 8 Hours Temp Pulse Resp BP Pulse Ox 09/17/18 06:39 98.1 F 67 14 130/78 97 09/17/18 03:10 98.4 F 75 14 143/81 99 Intake and Output 09/16/18 09/17/18 09/17/18 23:59 07:59 15:59 Intake Total 1213 / 1213 1063 / 1063 Output Total 402 / 402 260 / 260 Balance 811 / 811 803 / 803 Intake: IV Fluids 673 / 673 1063 / 1063 0.9 % Sodium Chloride 1,000 ML 252 / 252 613 / 613 @ 125 mls/hr IVC .Q8H [facility] Rx#: [id number] Clinimix E 5%-15% SOLUTION 2, 321 / 321 000 ML @ 70 mls/hr IVC .Q24H [facility] with M.v.i. Adult 10 ml Rx# :[id number] Ofirmev 1,000 mg/100 ml 1,000 100 / 100 200 / 200 mg In 100 ml @ 400 mls/hr IVPB Q6HR [facility] Rx#:[id number] Intralipid 20% 250 ML @ 21 mls/ 250 / 250 hr IVPB DAILY@1700 [facility] Rx#: [id number] Oral 540 / 540 0 / 0 Output: Urine 400 / 400 200 / 200 Wound Drainage 2 / 2 60 / 60 Right Lower Quadrant 2 / 2 60 / 60 Other: Meal clears Stool Size Large Stool Consistency liquid Stool Color Brown Blood Tinged # Bowel Movements 1 0 Weight 101.2 kg Blood Glucose* 123 Patient Weight 09/17/18 23:59 Weight 101.2 kg - General physical appearance well nourished, no distress - Abdomen Abdomen: Present: soft, tender (Noted midline tenderness and tenderness in the left lower quadrant. Left lower quadrant wound is packed with some mild exudate present on the dressing. Scant erythema around the staple lines along the midline (a license in (.) - Labs 09/16/18 06:08 09/17/18 04:32 Diabetes panel 09/17/18 Range/Units 04:32 Sodium 139 (136-145) mEq/L Potassium 3.4 L (3.5-5.1) mEq/L Chloride 109 H (98-107) mEq/L Carbon Dioxide 25 (23-29) mEq/L BUN 15 (8-23) mg/dL Creatinine 0.52 L (0.70-1.30) mg/dL Glucose 149 H (70-105) mg/dL Calcium 7.8 L (8.6-10.3) mg/dL Calcium panel 09/17/18 Range/Units 04:32 Calcium 7.8 L (8.6-10.3) mg/dL Phosphorus 3.4 (2.7-4.5) mg/dL Pituitary panel 09/17/18 Range/Units 04:32 Sodium 139 (136-145) mEq/L Potassium 3.4 L (3.5-5.1) mEq/L Chloride 109 H (98-107) mEq/L Carbon Dioxide 25 (23-29) mEq/L BUN 15 (8-23) mg/dL Creatinine 0.52 L (0.70-1.30) mg/dL Glucose 149 H (70-105) mg/dL Calcium 7.8 L (8.6-10.3) mg/dL Adrenal panel 09/17/18 Range/Units 04:32 Sodium 139 (136-145) mEq/L Potassium 3.4 L (3.5-5.1) mEq/L Chloride 109 H (98-107) mEq/L Carbon Dioxide 25 (23-29) mEq/L BUN 15 (8-23) mg/dL Creatinine 0.52 L (0.70-1.30) mg/dL Glucose 149 H (70-105) mg/dL Calcium 7.8 L (8.6-10.3) mg/dL - VTE Documentation of Mechanical Device: Intermittent pneumatic compression device Consult Discharge Plan - Plan Referrals: Herbert Sargent MD [Primary Care Provider] -
[2018-09-17] MEDS: Metoprolol XL (24 HR) Succ 25 MG TAB.ER.24H PO SCH (10:36)
[2018-09-17] MEDS: Furosemide 40 MG TABLET PO SCH (10:36)
[2018-09-17] MEDS: Pantoprazole 40 MG VIAL IVP SCH (10:36)
[2018-09-17] MEDS: Isosorbide MONOnitrate (24 HR) 30 MG TAB.ER.24H PO SCH (10:40)
[2018-09-17] MEDS: Aspirin 81 MG TAB.CHEW PO SCH (10:40)
[2018-09-17] MEDS: *HR* OxyCODONE/APAP 5/325 TABLET PO PRN ×2 (16:11→22:25)
[2018-09-17] MEDS ORDERED: Clinimix E 5%-15% SOLUTION 2,000 ML with MVI, adult with vitamin K 10 ML IVC SCH (17:00)
[2018-09-18] MEDS: Insulin LISPRO 300 UNITS/3 ML VIAL SQ SCH ×4 (00:03→17:44)
[2018-09-18] MEDS: Acetaminophen IV 1,000 MG/100 ML INFUS..BTL IVPB SCH ×4 (00:07→17:41)
[2018-09-18] MEDS: *HR* OxyCODONE/APAP 5/325 TABLET PO PRN ×3 (04:26→18:17)
[2018-09-18 05:05] LABS: BUN/Creatinine Ratio 29 (6-26); Blood Urea Nitrogen 17 mg/dL (8-23); Calcium 7.9 mg/dL (8.6-10.3); Carbon Dioxide 26 mEq/L (23-29); Chloride 109 mEq/L (98-107); Glucose 127 mg/dL (70-105); Magnesium 1.8 mg/dL (1.6-2.6); Osmolality,Calculated 293 (280-300); Phosphorous 3.2 mg/dL (2.7-4.5); Potassium 3.7 mEq/L (3.5-5.1); Sodium 140 mEq/L (136-145); eGFR For Non-African Americans > 60 (> 60)
[2018-09-18] MEDS: 0.9 % Sodium Chloride 1,000 ML IVC SCH (06:29)
[2018-09-18] MEDS: Metoprolol XL (24 HR) Succ 25 MG TAB.ER.24H PO SCH (08:42)
[2018-09-18] MEDS: Furosemide 40 MG TABLET PO SCH (08:42)
[2018-09-18] MEDS: Isosorbide MONOnitrate (24 HR) 30 MG TAB.ER.24H PO SCH (08:42)
[2018-09-18] MEDS: Aspirin 81 MG TAB.CHEW PO SCH (08:42)
--- NOTE | 2018-09-18 09:31 | General Surgery Progress Note ---
Date of Encounter: 09/18/18 Time of Encounter: 09:30 - Assessment and Plan (1) S/P colostomy takedown Current Visit: Yes Status: Acute She has tolerated full liquids. Will change to soft food diet and decrease TPN by 50% with the plan on stopping the TPN tomorrow. Continue with dressing changes for now. Subjective Patient reports: other (Patient has continued flatus and has had some bowel movements-total 3. No nausea or vomiting) Objective Vital Signs - Last 8 Hours Temp Pulse Resp BP Pulse Ox 09/18/18 06:51 98.1 F 66 13 160/86 99 09/18/18 03:36 98 F 79 16 139/86 100 Intake and Output 09/17/18 09/18/18 09/18/18 23:59 07:59 15:59 Intake Total 2049 / 2049 650 / 650 Output Total 300 / 300 330 / 330 Balance 1750 / 1750 320 / 320 Intake: IV Fluids 2049 450 / 450 Clinimix E 5%-15% SOLUTION 2, 1950 / 1950 000 ML @ 83.3 mls/hr IVC .Q24H [facility] with M.v.i. Adult 10 ml Rx# :[id number] Ofirmev 1,000 mg/100 ml 1,000 100 / 100 200 / 200 mg In 100 ml @ 400 mls/hr IVPB Q6HR [facility] Rx#:[id number] Intralipid 20% 250 ML @ 21 mls/ 250 / 250 hr IVPB DAILY@1700 [facility] Rx#: [id number] Oral 0 / 0 200 / 200 Output: Urine 300 / 300 300 / 300 Wound Drainage 30 / 30 Right Lower Quadrant 30 / 30 Other: # Bowel Movements 0 Blood Glucose* 162 181 - General physical appearance well nourished, no distress - Respiratory normal expansion - Abdomen Abdomen: Present: bowel sounds present, soft, tender (A left lower quadrant incisional pain. Wound has packing in place with no surrounding erythema. No drainage and dressing (1 just changed). Midline incision clean dry and intact) - Labs 09/18/18 07:32 09/18/18 04:00 Diabetes panel 09/18/18 Range/Units 04:00 Sodium 140 (136-145) mEq/L Potassium 3.7 (3.5-5.1) mEq/L Chloride 109 H (98-107) mEq/L Carbon Dioxide 26 (23-29) mEq/L BUN 17 (8-23) mg/dL Creatinine 0.58 L (0.70-1.30) mg/dL Glucose 127 H (70-105) mg/dL Calcium 7.9 L (8.6-10.3) mg/dL Calcium panel 09/18/18 Range/Units 04:00 Calcium 7.9 L (8.6-10.3) mg/dL Phosphorus 3.2 (2.7-4.5) mg/dL Pituitary panel 09/18/18 Range/Units 04:00 Sodium 140 (136-145) mEq/L Potassium 3.7 (3.5-5.1) mEq/L Chloride 109 H (98-107) mEq/L Carbon Dioxide 26 (23-29) mEq/L BUN 17 (8-23) mg/dL Creatinine 0.58 L (0.70-1.30) mg/dL Glucose 127 H (70-105) mg/dL Calcium 7.9 L (8.6-10.3) mg/dL Adrenal panel 09/18/18 Range/Units 04:00 Sodium 140 (136-145) mEq/L Potassium 3.7 (3.5-5.1) mEq/L Chloride 109 H (98-107) mEq/L Carbon Dioxide 26 (23-29) mEq/L BUN 17 (8-23) mg/dL Creatinine 0.58 L (0.70-1.30) mg/dL Glucose 127 H (70-105) mg/dL Calcium 7.9 L (8.6-10.3) mg/dL - VTE Documentation of Mechanical Device: Intermittent pneumatic compression device Consult Discharge Plan - Plan Referrals: Herbert Sargent MD [Primary Care Provider] -
[2018-09-18] MEDS ORDERED: Clinimix E 5%-15% SOLUTION 2,000 ML with MVI, adult with vitamin K 10 ML IVC SCH (09:35)
[2018-09-18 10:08] LABS: Hematocrit 24.3 % (37.5-50.1); Hemoglobin 8.1 g/dL (12.9-16.9); Mean Corpuscular HGB Conc 33.3 g/dL (31.6-35.5); Mean Corpuscular Volume 93.1 fL (83.0-100.0); Mean Platelet Volume 11.3 fL (9.4-12.4); Platelet Count 166 K/mcL (140-400); Red Blood Count 2.61 M/mcL (4.19-5.50); Red Cell Distribution Width 13.7 % (11.5-14.5)
--- NOTE | 2018-09-18 14:48 | Event Note ---
Date of Encounter: 09/18/18 Time of Encounter: 14:46 Event note placed for follow-up appountment - Patient Status Disposition: Still a Patient - Discharge Instructions Instructions: Laparoscopic Colostomy Reversal (DC) Follow Up With: Herbert Sargent MD [Primary Care Provider] - Jaime Reid MD [Non-Partnered Physician] - 09/29/18 9:00 am
[2018-09-19] MEDS: Acetaminophen IV 1,000 MG/100 ML INFUS..BTL IVPB SCH ×5 (00:12→23:15)
[2018-09-19] MEDS: Insulin LISPRO 300 UNITS/3 ML VIAL SQ SCH ×5 (00:20→20:10)
[2018-09-19 05:36] LABS: Basophils % 0.4 %; Eosinophils # 0.3 K/mcL (0.0-0.6); Eosinophils % 3.6 %; Hematocrit 23.5 % (37.5-50.1); Hemoglobin 7.6 g/dL (12.9-16.9); Immature Granulocytes % 0.7 % (0-4); Lymphocytes # 1.1 K/mcL (0.6-4.6); Lymphocytes % 15.7 %; Mean Corpuscular HGB Conc 32.3 g/dL (31.6-35.5); Mean Corpuscular Hemoglobin 30.4 pg (28.0-33.3); Mean Platelet Volume 11.4 fL (9.4-12.4); Monocytes # 0.9 K/mcL (0.0-1.3); Monocytes % 12.3 %; Neutrophils # 4.9 K/mcL (1.6-8.9); Platelet Count 178 K/mcL (140-400); Red Cell Distribution Width 13.8 % (11.5-14.5); Segmented Neutrophils % 67.3 %
[2018-09-19] MEDS: Isosorbide MONOnitrate (24 HR) 30 MG TAB.ER.24H PO SCH (08:22)
[2018-09-19] MEDS: Metoprolol XL (24 HR) Succ 25 MG TAB.ER.24H PO SCH (08:22)
[2018-09-19] MEDS: Aspirin 81 MG TAB.CHEW PO SCH (08:22)
[2018-09-19] MEDS: Furosemide 40 MG TABLET PO SCH (08:26)
--- NOTE | 2018-09-19 09:37 | General Surgery Progress Note ---
Date of Encounter: 09/19/18 Time of Encounter: 09:35 - Assessment and Plan (1) Status post Amanda procedure Current Visit: Yes Status: Acute 63M POD #8 s/p colostomy takedown; tolerating diet, TPN discontinued, currently undergoing PT cont pain regimen PT/OT, pulm toileting adv to soft diet replace electrolytes chemical DVt prophylaxis; hold plavix; will discuss with cardiology/PCP on timing to restart cont to monitor; plan for d/c in the next 24-48hrs Subjective Patient reports: no new complaints, feels better, still having pain, pain is less, tolerating liquids well, bowel movement, blood in stool, afebrile Objective Vital Signs - Last 8 Hours Temp Pulse Resp BP Pulse Ox 09/19/18 06:58 97.8 F 82 15 115/75 96 09/19/18 03:23 98.3 F 78 16 123/79 98 Intake and Output 09/18/18 09/19/18 09/19/18 23:59 07:59 15:59 Intake Total 960.8 / 960.8 400 / 400 Output Total 550 / 550 1620 / 1620 225 / 225 Balance 410.8 / 410.8 -1220 / -1220 -225 / -225 Intake: IV Fluids 500.8 / 500.8 200 / 200 Clinimix E 5%-15% SOLUTION 2, 400.8 / 400.8 000 ML @ 83.3 mls/hr IVC .Q24H [facility] with M.v.i. Adult 10 ml Rx# :[id number] Ofirmev 1,000 mg/100 ml 1,000 100 / 100 200 / 200 mg In 100 ml @ 400 mls/hr IVPB Q6HR [facility] Rx#:[id number] Oral 460 / 460 200 / 200 Output: Urine 550 / 550 1600 / 1600 225 / 225 Wound Drainage 0 / 0 20 / 20 0 / 0 Right Lower Quadrant 0 / 0 20 / 20 0 / 0 Other: Meal Dinner Percent of Meal Consumed 100% # Bowel Movements 0 Weight 102 kg Blood Glucose* 127 113 Patient Weight 09/19/18 23:59 Weight 102 kg - General physical appearance no distress - Respiratory normal expansion, normal respiratory effort - Cardiovascular Cardiovascular exam: Present: RRR - Abdomen Abdomen: Present: soft, tender (appropriately tender) - Incision Incision: Present: clean and dry, intact - Integumentary no rash - Neurologic CN 2-12 grossly intact - Musculoskeletal normal posture - Psychiatric oriented to time, oriented to person, oriented to place - Labs 09/19/18 04:52 09/18/18 04:00 - VTE Documentation of Mechanical Device: Intermittent pneumatic compression device Consult Discharge Plan - Plan Instructions: Laparoscopic Colostomy Reversal (DC) Referrals: Jaime Reid MD [Non-Partnered Physician] - 09/29/18 9:00 am Herbert Sargent MD [Primary Care Provider] -
[2018-09-19] MEDS: *HR* OxyCODONE/APAP 5/325 TABLET PO PRN ×3 (10:53→23:15)
[2018-09-20] MEDS: Acetaminophen IV 1,000 MG/100 ML INFUS..BTL IVPB SCH ×3 (05:11→17:24)
[2018-09-20] MEDS: Insulin LISPRO 300 UNITS/3 ML VIAL SQ SCH ×4 (08:08→21:31)
[2018-09-20] MEDS: *HR* OxyCODONE/APAP 5/325 TABLET PO PRN ×2 (08:21→21:31)
[2018-09-20] MEDS: Aspirin 81 MG TAB.CHEW PO SCH (08:23)
[2018-09-20] MEDS: Metoprolol XL (24 HR) Succ 25 MG TAB.ER.24H PO SCH (08:23)
[2018-09-20] MEDS: Furosemide 40 MG TABLET PO SCH (08:23)
[2018-09-20] MEDS: Isosorbide MONOnitrate (24 HR) 30 MG TAB.ER.24H PO SCH (08:23)
[2018-09-20 09:00] LABS: Basophils % 0.5 %; Eosinophils # 0.2 K/mcL (0.0-0.6); Hematocrit 25.6 % (37.5-50.1); Hemoglobin 8.2 g/dL (12.9-16.9); Immature Granulocytes % 0.5 % (0-4); Lymphocytes # 1.2 K/mcL (0.6-4.6); Lymphocytes % 15.6 %; Mean Corpuscular Hemoglobin 30.4 pg (28.0-33.3); Mean Corpuscular Volume 94.8 fL (83.0-100.0); Mean Platelet Volume 10.7 fL (9.4-12.4); Monocytes # 0.9 K/mcL (0.0-1.3); Monocytes % 12.1 %; Neutrophils # 5.1 K/mcL (1.6-8.9); Platelet Count 218 K/mcL (140-400); Red Cell Distribution Width 13.8 % (11.5-14.5); Segmented Neutrophils % 68.3 %
[2018-09-20 09:19] LABS: BUN/Creatinine Ratio 15 (6-26); Blood Urea Nitrogen 10 mg/dL (8-23); Calcium 8.1 mg/dL (8.6-10.3); Carbon Dioxide 30 mEq/L (23-29); Chloride 104 mEq/L (98-107); Glucose 108 mg/dL (70-105); Osmolality,Calculated 286 (280-300); Potassium 4.1 mEq/L (3.5-5.1); Sodium 138 mEq/L (136-145); eGFR For Non-African Americans > 60 (> 60)
--- NOTE | 2018-09-20 13:26 | General Surgery Progress Note ---
Date of Encounter: 09/20/18 Time of Encounter: 13:22 - Assessment and Plan (1) Status post Amanda procedure Current Visit: Yes Status: Acute 63M POD #9 s/p colostomy takedown; tolerating diet, TPN discontinued, currently undergoing PT cont pain regimen PT/OT, pulm toileting replace electrolytes d/c drain on 09/21 likely wet to dry dressings for colostomy takedown site chemical DVt prophylaxis; hold plavix; will discuss with cardiology/PCP on timing to restart cont to monitor; plan for d/c SNF vs home with family on 09/21 Subjective Patient reports: no new complaints, feels better, tolerating a regular diet, afebrile Objective Vital Signs - Last 8 Hours Temp Pulse Resp BP Pulse Ox 09/20/18 10:25 98.5 F 46 15 131/83 99 09/20/18 08:27 96 09/20/18 07:16 97.8 F 84 15 127/71 96 Intake and Output 09/19/18 09/20/18 09/20/18 23:59 07:59 15:59 Intake Total 400 / 400 100 / 100 0 / 0 Output Total 675 / 675 770 / 770 450 / 450 Balance -275 / -275 -670 / -670 -450 / -450 Intake: IV Fluids 200 / 200 100 / 100 Ofirmev 1,000 mg/100 ml 1,000 200 / 200 100 / 100 mg In 100 ml @ 400 mls/hr IVPB Q6HR [facility] Rx#:[id number] Oral 200 / 200 0 / 0 Output: Urine 650 / 650 750 / 750 450 / 450 Wound Drainage 20 / 20 0 / 0 Right Lower Quadrant 20 / 20 0 / 0 Other: Meal Dinner Percent of Meal Consumed 100% Weight 103.2 kg Blood Glucose* 131 115 108 Patient Weight 09/20/18 23:59 Weight 103.2 kg - General physical appearance no distress - Cardiovascular Cardiovascular exam: Present: RRR - Abdomen Abdomen: Present: soft, non tender - Neurologic CN 2-12 grossly intact - Labs 09/20/18 08:45 09/20/18 08:45 Diabetes panel 09/20/18 Range/Units 08:45 Sodium 138 (136-145) mEq/L Potassium 4.1 (3.5-5.1) mEq/L Chloride 104 (98-107) mEq/L Carbon Dioxide 30 H (23-29) mEq/L BUN 10 (8-23) mg/dL Creatinine 0.68 L (0.70-1.30) mg/dL Glucose 108 H (70-105) mg/dL Calcium 8.1 L (8.6-10.3) mg/dL Calcium panel 09/20/18 Range/Units 08:45 Calcium 8.1 L (8.6-10.3) mg/dL Pituitary panel 09/20/18 Range/Units 08:45 Sodium 138 (136-145) mEq/L Potassium 4.1 (3.5-5.1) mEq/L Chloride 104 (98-107) mEq/L Carbon Dioxide 30 H (23-29) mEq/L BUN 10 (8-23) mg/dL Creatinine 0.68 L (0.70-1.30) mg/dL Glucose 108 H (70-105) mg/dL Calcium 8.1 L (8.6-10.3) mg/dL Adrenal panel 09/20/18 Range/Units 08:45 Sodium 138 (136-145) mEq/L Potassium 4.1 (3.5-5.1) mEq/L Chloride 104 (98-107) mEq/L Carbon Dioxide 30 H (23-29) mEq/L BUN 10 (8-23) mg/dL Creatinine 0.68 L (0.70-1.30) mg/dL Glucose 108 H (70-105) mg/dL Calcium 8.1 L (8.6-10.3) mg/dL - VTE Documentation of Mechanical Device: Intermittent pneumatic compression device Consult Discharge Plan - Plan Instructions: Laparoscopic Colostomy Reversal (DC) Referrals: Jaime Reid MD [Non-Partnered Physician] - 09/29/18 9:00 am Herbert Sargent MD [Primary Care Provider] -
[2018-09-21] MEDS: Docusate Oral Soln 100 MG/10 ML UDC PO SCH ×2 (00:01→08:58)
[2018-09-21] MEDS: Acetaminophen IV 1,000 MG/100 ML INFUS..BTL IVPB SCH ×2 (00:01→05:42)
[2018-09-21] MEDS: *HR* OxyCODONE/APAP 5/325 TABLET PO PRN ×2 (03:42→16:22)
--- NOTE | 2018-09-21 08:45 | Discharge Summary ---
Date of Encounter: 09/21/18 Time of Encounter: 10:07 - Discharge Diagnosis (1) S/P colostomy takedown Priority: Primary Status: Acute (2) Nonhealing surgical wound Priority: Secondary Status: Acute Qualifiers: Encounter type: initial encounter Qualified Code(s): T81.89XA - Other complications of procedures, not elsewhere classified, initial encounter (3) Status post Amanda procedure Priority: Secondary Status: Acute (4) Afib Priority: Secondary Status: Chronic Qualifiers: Atrial fibrillation type: chronic Qualified Code(s): I48.2 - Chronic atrial fibrillation (5) Diabetes Priority: Secondary Status: Chronic Qualifiers: Diabetes mellitus type: type 2 Diabetes mellitus group home insulin use: without director long term care use Diabetes mellitus complication status: with unspecified complications Qualified Code(s): E11.8 - Type 2 diabetes mellitus with unspecified complications General Surgery Exam Initial Vital Signs Temp Pulse Resp BP Pulse Ox 98.0 F 81 18 115/73 98 09/11/18 10:56 09/11/18 10:56 09/11/18 10:56 09/11/18 10:56 09/11/18 10:56 - General physical appearance well developed, well nourished, no distress, no pain - Neck trachea midline - Respiratory normal expansion, normal respiratory effort, clear to auscultation - Cardiovascular Cardiovascular exam: Present: RRR, distant heart sounds - Abdomen Abdomen general surgery: Present: bowel sounds present, soft, tender - Incision Incision: Present: open (midline is c/d/i; colostomy site has dehisced; no bowel exposed 6cm L x 3cm W x 3cm D; wound vac placed) - Integumentary Integumentary general surgery: Present: warm and dry, other (dry skin noted) - Neurologic Present: CN 2-12 grossly intact, normal coordination, normal sensation - Musculoskeletal Present: normal posture, other - Psychiatric Psychiatric general surgery: Present: A&Ox3, appropriate, oriented to person, oriented to place, oriented to time, speech is normal, memory intact - Hospital Course Hospital course: Mr. Stone is a 63 year old male presented on 09/11/2018 for exploratory laparotomy, lysis of adhesions, colostomy takedown for a sigmoid volvulus/P Noyola's. His hospital course was relatively uncomplicated. He did have wound dehiscence in the left bilateral (old colostomy site) surgical incision for which a wound VAC was placed. He is noted to have generalized deconditioning for which PT and OT have been working with him. He is tolerating a diet without nausea or vomiting, he does state he feels somewhat constipated was treated with MiraLAX but otherwise has no abdominal pain. We will begin discharge planning to rehab with a follow-up with Dr. Reid in approximately 2 weeks. - Time Spent with Patient Total time spent providing and/or coordinating discharge services: Greater than 30 minutes Specific discharge activities: Wound VAC placement, DC planning - Discharge Medications Prescriptions: OxyCODONE/APAP 5/325 [Percocet 5/325 MG] 1 each PO Q6HR PRN 3 Days #12 tablet PRN Reason: Pain Home Medications: Atorvastatin [Lipitor] 40 mg PO HS 06/10/18 [History] Clopidogrel [Plavix] 75 mg PO DAILY 06/10/18 [History] Folic Acid 1 mg PO DAILY 06/10/18 [History] Furosemide [Lasix] 60 mg PO DAILY 06/10/18 [History] Isosorbide MONOnitrate (24 HR) [Imdur] 30 mg PO DAILY 06/10/18 [History] Metoprolol Succinate [Toprol Xl] 25 mg PO DAILY 06/10/18 [History] Multivit,Th Iron,Other Min [Therems-M] 1 tab PO DAILY 06/10/18 [History] Potassium Chloride [K-Tab ER] 20 meq PO DAILY 06/10/18 [History] metFORMIN [Glucophage] 500 mg PO BIDWM 06/10/18 [History] Aspirin 81 mg PO DAILY 30 Days #30 tab.chew 06/22/18 [Rx] Omeprazole [PriLOSEC] 20 mg PO DAILY@0630 capsule.dr 06/22/18 [Rx] OxyCODONE/APAP 5/325 [Percocet 5/325 MG] 1 each PO Q6HR PRN 3 Days #12 tablet 09/21/18 [Rx] Polyethylene Glycol 3350 [MiraLAX] 17 gm PO DAILY powd.pack 09/21/18 [Rx] Allergies/Adverse Reactions: Allergy/AdvReac Type Severity Reaction Status Date / Time No Known Allergies Allergy Verified 06/09/18 23:56 Date of admission: 09/11/18 17:48 Primary care physician: Herbert Sargent Consults: 09/14/18 08:09 Consult to Physical Therapy [CONS] Routine Comment: Evaluate, develop and implement POC Reason for Consult: prevent deconditioning Does patient have active BEDREST order?: No Is patient medically & hemodynamically stable?: Yes Patient assessed for mobility or mobilized this visit?: No OT [Consult to Occupational Therapy] [CONS] Routine Comment: Evaluate, develop and implement POC Reason for Consult: prevent deconditioning Does patient have active BEDREST order?: No Is patient medically & hemodynamically stable?: Yes Patient assessed for mobility or mobilized this visit?: No 09/14/18 08:26 Consult to Invasive Line Access Team [CONS] Routine Reason for Consult: Picc Line Insertion Line Type: PICC PICC line indications: Parental nutrition 09/14/18 10:32 Consult to Nutrition [CONS] Stat Comment: Consulting Provider: NUTRITION Reason for Dietary Consult: TPN Start and Manage 09/14/18 12:23 Consult to Invasive Line Access Team [CONS] Routine Reason for Consult: Picc Line Insertion Line Type: PICC 09/18/18 14:44 Consult to [facility] [CONS] Stat Reason for SW Consult: d/c planning. PT reccs SNF. possibly ready for d/c Friday or Friday Discharging clinician: Jaime Ewing) Anticipated date of discharge: 09/21/18 Labs on day of discharge: Labs from last 24 hours 09/20/18 09/20/18 09/20/18 20:33 11:09 08:45 WBC RBC Hgb Hct MCV MCH MCHC RDW Plt Count MPV Immature Gran % Seg Neutrophils % Lymphocytes % Monocytes % Eosinophils % Basophils % Neutrophils # Lymphocytes # Monocytes # Eosinophils # Basophils # Sodium 138 Potassium 4.1 Chloride 104 Carbon Dioxide 30 H BUN 10 Creatinine 0.68 L Est GFR ( Amer) > 60 Est GFR (Non-Af Amer) > 60 BUN/Creatinine Ratio 15 Glucose 108 H POC Glucose 118 H 108 H Calculated Osmolality 286 Calcium 8.1 L 09/20/18 09/20/18 09/19/18 08:45 07:17 19:39 WBC 7.5 RBC 2.70 L Hgb 8.2 L Hct 25.6 L MCV 94.8 MCH 30.4 MCHC 32.0 RDW 13.8 Plt Count 218 MPV 10.7 Immature Gran % 0.5 Seg Neutrophils % 68.3 Lymphocytes % 15.6 Monocytes % 12.1 Eosinophils % 3.0 Basophils % 0.5 Neutrophils # 5.1 Lymphocytes # 1.2 Monocytes # 0.9 Eosinophils # 0.2 Basophils # 0.0 Sodium Potassium Chloride Carbon Dioxide BUN Creatinine Est GFR ( Amer) Est GFR (Non-Af Amer) BUN/Creatinine Ratio Glucose POC Glucose 115 H 131 H Calculated Osmolality Calcium 09/19/18 16:33 WBC RBC Hgb Hct MCV MCH MCHC RDW Plt Count MPV Immature Gran % Seg Neutrophils % Lymphocytes % Monocytes % Eosinophils % Basophils % Neutrophils # Lymphocytes # Monocytes # Eosinophils # Basophils # Sodium Potassium Chloride Carbon Dioxide BUN Creatinine Est GFR ( Amer) Est GFR (Non-Af Amer) BUN/Creatinine Ratio Glucose POC Glucose 113 H Calculated Osmolality Calcium - Impressions ITS Impressions Chest X-Ray 09/14/18 12:23 IMPRESSION: 1. Interval right upper extremity PICC placement with distal tip terminating at the cavoatrial junction. 2. Partial obscuration of the lateral left hemidiaphragm, likely on the basis of atelectasis, an underlying infectious/inflammatory process cannot be entirely excluded. This could be further evaluated via dedicated PA and lateral views of the chest when the patient is better able to tolerate imaging. D/ / Gildardo Sanders / Gildardo Sanders Interpreting Provider: Gildardo Sanders - Patient Status Disposition: Transfer Inpatient Rehab Fac Condition: Good Functional capacity at discharge: uses cane/walker Overall status at discharge: patient is not back to baseline - Discharge Instructions Instructions: Laparoscopic Colostomy Reversal (DC) Follow Up With: Jaime Reid MD [Non-Partnered Physician] - 09/29/18 9:00 am (Appointment will be in the [facility]. Thank you) Additional Instructions: General Surgical Discharge Instructions 1. No pushing, pulling, or lifting greater than 15 lbs for 4 weeks (depending upon procedure). 2. You may shower beginning today, but no tub baths, soaking, or swimming for 2 weeks. 3. You may resume driving when you are off narcotics and are safe to react in a car. 4. Take ibuprofen every 8 hours for discomfort. If this does not relieve discomfort, you may take the as needed Percocet. Take narcotics as directed. Do not take more narcotics then directed and do not share your narcotics with any other person. Do not drink alcohol while on narcotics. 5. Take stool softeners (Colace) or a water based laxative (Miralax) while taking narcotics. You may hold for loose stools. 6. Report any fevers greater than 100.5F, increase abdominal discomfort, drainage that looks like pus, increased redness or pain at the surgical site, or any vomiting. 7. Report any pain in the calves, shortness of breath, or rapid heartbeat. 8. Follow-up in the office as directed. 9. If you were prescribed antibiotics, do not stop them without talking to your provider. Wound Care/Dressing Changes: Wound Vac to left lateral incision, black foam - 125 mmHg, change Q M/W/F Midline: leave open to air or cover with abd for patient comfort - Diet and Activity Activity: as per physical therapy, increase activity as tolerated Diet: advance to your usual diet
[2018-09-21] MEDS: Isosorbide MONOnitrate (24 HR) 30 MG TAB.ER.24H PO SCH (08:57)
[2018-09-21] MEDS: Furosemide 40 MG TABLET PO SCH (08:57)
[2018-09-21] MEDS: Aspirin 81 MG TAB.CHEW PO SCH (08:57)
[2018-09-21] MEDS: Insulin LISPRO 300 UNITS/3 ML VIAL SQ SCH ×3 (08:58→16:22)
[2018-09-21] MEDS: Metoprolol XL (24 HR) Succ 25 MG TAB.ER.24H PO SCH (08:58)
[2018-09-21] MEDS: Bisacodyl 10 MG RECTAL SUPPOSITORY RC SCH ×2 (08:59→11:26)
--- NOTE | 2018-09-21 10:14 | Physician Discharge Referral ---
ExtendedCare Referral Info Transfer To: [facility] Provider in Charge: Dr. Jaime Reid Provider in Charge after Transfer: Other (director investment banking/migration agent) Institutional Level of Care: Intermediate - Diagnosis (1) Nonhealing surgical wound Priority: Secondary Status: Acute (2) S/P colostomy takedown Priority: Primary Status: Acute (3) Status post Amanda procedure Priority: Secondary Status: Acute (4) Afib Priority: Secondary Status: Chronic (5) Diabetes Priority: Secondary Status: Chronic Expected Duration of Placement: 1 month Prognosis: Fair Aware of Diagnosis: Patient Aware of Prognosis: Patient - Transfer Medications Prescriptions: OxyCODONE/APAP 5/325 [Percocet 5/325 MG] 1 each PO Q6HR PRN 3 Days #12 tablet PRN Reason: Pain Home Medications: Atorvastatin [Lipitor] 40 mg PO HS 06/10/18 [History] Clopidogrel [Plavix] 75 mg PO DAILY 06/10/18 [History] Folic Acid 1 mg PO DAILY 06/10/18 [History] Furosemide [Lasix] 60 mg PO DAILY 06/10/18 [History] Isosorbide MONOnitrate (24 HR) [Imdur] 30 mg PO DAILY 06/10/18 [History] Metoprolol Succinate [Toprol Xl] 25 mg PO DAILY 06/10/18 [History] Multivit,Th Iron,Other Min [Therems-M] 1 tab PO DAILY 06/10/18 [History] Potassium Chloride [K-Tab ER] 20 meq PO DAILY 06/10/18 [History] metFORMIN [Glucophage] 500 mg PO BIDWM 06/10/18 [History] Aspirin 81 mg PO DAILY 30 Days #30 tab.chew 06/22/18 [Rx] Omeprazole [PriLOSEC] 20 mg PO DAILY@0630 capsule.dr 06/22/18 [Rx] OxyCODONE/APAP 5/325 [Percocet 5/325 MG] 1 each PO Q6HR PRN 3 Days #12 tablet 09/21/18 [Rx] Polyethylene Glycol 3350 [MiraLAX] 17 gm PO DAILY powd.pack 09/21/18 [Rx] Allergies/Adverse Reactions: Allergy/AdvReac Type Severity Reaction Status Date / Time No Known Allergies Allergy Verified 06/09/18 23:56 - Respiratory Orders Smoking Cessation: Smoking cessation has been advised. For more information, call the [place] Tobacco Quit Line at 5-664-UARF-NOW. - Ancillary Orders May use pressure relief devices daily prn - Advance Directives Living Will: No Power of Strip Stamp Straightener for Health Care: No Code Status: Full Code - Mobility Orders Chair, Ambulate, Other (Left AKA) - Rehabiliation Orders Rehab Potential: Fair Rehab Orders: ROM Exercises, Evaluation for Physical Therapy, Evaluation for Occupational Therapy, Evaluation for Speech Therapy - Treatments List/Other: General Surgical Discharge Instructions 1. No pushing, pulling, or lifting greater than 15 lbs for 4 weeks (depending upon procedure). 2. You may shower beginning today, but no tub baths, soaking, or swimming for 2 weeks. 3. You may resume driving when you are off narcotics and are safe to react in a car. 4. Take ibuprofen every 8 hours for discomfort. If this does not relieve discomfort, you may take the as needed Percocet. Take narcotics as directed. Do not take more narcotics then directed and do not share your narcotics with any other person. Do not drink alcohol while on narcotics. 5. Take stool softeners (Colace) or a water based laxative (Miralax) while taking narcotics. You may hold for loose stools. 6. Report any fevers greater than 100.5F, increase abdominal discomfort, drainage that looks like pus, increased redness or pain at the surgical site, or any vomiting. 7. Report any pain in the calves, shortness of breath, or rapid heartbeat. 8. Follow-up in the office as directed. 9. If you were prescribed antibiotics, do not stop them without talking to your provider. Wound Care/Dressing Changes: Wound Vac to left lateral incision, black foam maintain continuous suction at - 125 mmHg, change Q M/W/F Midline: leave open to air or cover with abd for patient comfort - Diet Orders Regular (Diabetic 1800 calorie), No Concentrated Sweets House Supplement per Dietary: Diabetic protein supplement TID for wound healing or equivalent protein supplementation CERTIFICATION: I certify that the transfer of the above named patient to an Extended Care Facility is necessary for the continuing treatment of the diagnosis listed. The above information is true and accurate reflection of patient's current condition. Confidential - Redisclosure prohibited without a patient's written consent.
[2018-09-21 18:53] VITALS: BP 156/76
== END 2018-09-21 19:25 | DRG 330 ==
LOC: SAMDAY 10:29 → 3ANU 17:48
PROVIDERS: ADMIT Surgery; ATTEND Surgery

== ENCOUNTER 2018-11-14 12:22 | Inpatient (IN) ==
[2018-11-14] MEDS ORDERED: Piperacillin/Tazobactam 3.375 GM in 0.9 % Sodium Chloride Mini Bag 100 ML IVPB ONE (12:35)
[2018-11-14] MEDS: 0.9 % Sodium Chloride 1,000 ML IVC ONE ×2 (12:35→16:15)
--- NOTE | 2018-11-14 12:45 | Emergency Department Note ---
"Addendum entered and electronically signed by Yehuda Almaguer 11/14/18 18:45: Patient was admitted to hospital medicine service pending ICU admit for pyelonephritis and pneumonia in the setting of septic shock. Original Note: Disposition Clinical Impression: Septic shock, Pneumonia, Pyelonephritis Altered mental status Qualifiers: Altered mental status type: unspecified Qualified Code(s): R41.82 - Altered mental status, unspecified Disposition: Admitted As Inpatient Condition: Good General Adult HPI - General Chief complaint: ED General Medical Stated complaint: Weakness Time Seen by Provider: 11/14/18 12:28 : {ED_46_HPI_46_SOU 1|} : {ED_46_HPI_46_EXL 1|} : Y : Y - History of Present Illness HPI Narrative: Patient is a 63-year-old male presenting to [facility] ED for an unknown duration of altered mental status. Patient brought in by EMS who states the patient was found by family members this morning covered in his own stool and acting confused. Patient has a past medical history of CVA, A-Fib, left leg below the knee amputation, sigmoid volvulus with colectomy and reversal performed in August. Patient appears to be altered upon presentation and is a poor historian and only minimally able to participate in review of systems questioning. Patient states he has no headache, no chest pain or shortness of breath no abdominal pain/nausea vomiting, no pain in his limbs or any other complaints or concerns at this time. Patient currently meets sepsis criteria with tachycardia, tachypnea, hypotension, and concern for source of infection being right lower leg which sh ows cellulitic change. We will initiate sepsis criteria initiating fluids and IV antibiotics with vancomycin and Zosyn. : ED_46_ONSET5 7 Pain Scale: ED_46_HPI_46_PNS 11 Associated symptoms: - Related Data Home Medications Medication Instructions Recorded Confirmed Atorvastatin [Lipitor] 40 mg PO HS 06/10/18 09/11/18 Clopidogrel [Plavix] 75 mg PO DAILY 06/10/18 09/11/18 Folic Acid 1 mg PO DAILY 06/10/18 09/11/18 Furosemide [Lasix] 60 mg PO DAILY 06/10/18 09/11/18 Isosorbide MONOnitrate (24 HR) 30 mg PO DAILY 08/15/18 11/16/18 [Imdur] Metoprolol Succinate [Toprol Xl] 25 mg PO DAILY 06/10/18 09/11/18 Multivit,Th Iron,Other Min 1 tab PO DAILY 06/10/18 09/11/18 [Therems-M] Potassium Chloride [K-Tab ER] 20 meq PO DAILY 06/10/18 09/11/18 metFORMIN [Glucophage] 500 mg PO BIDWM 06/10/18 09/11/18 Previous Rx's Medication Instructions Recorded Aspirin 81 mg PO DAILY 30 Days #30 tab.chew 06/22/18 Omeprazole [PriLOSEC] 20 mg PO DAILY@0630 capsule.dr 06/22/18 Polyethylene Glycol 3350 [MiraLAX] 17 gm PO DAILY powd.pack 09/21/18 Allergies Allergy/AdvReac Type Severity Reaction Status Date / Time No Known Allergies Allergy Verified 06/09/18 23:56 : ED_46_ROSHPI 1 Limitations: ROS unobtainable due to patients medical condition Past Medical History - Past Medical History Medical history: Surgical history: Psychiatric history: - Social History : GEN_46_SMKST 4 : N Alcohol use: : Physical Exam - General : {ED_46_HPI_46_EXL 1|} General appearance: {ED_46_EX_46_GENA 1|} - Head Head exam: {ED_46_EX_46_HEG 1|} - Eye Eye exam: - Neck Neck exam: - Chest : - Respiratory Respiratory exam: - Cardiovascular Cardiovascular exam: - Abdominal Exam Abdominal exam: - Extremities Exam Extremities exam: - Expanded Lower Extremity Exam Lower leg exam: - Neurological Exam Neurological exam: Course Course Narrative: Sepsis criteria initiated with broad-spectrum antibiotics and IV fluids. CT scan of the head, abdomen, and pelvis will be performed in order to evaluate for potential underlying pathology. CBC, CMP, lactate, blood cultures, chest x-ray, troponin, PT/PTT, magnesium, phosphorus, EKG, urinalysis, POC glucose, BNP to assess for potential underlying pathology. - Reevaluation(s) Reevaluation #1: Patient blood pressure is nonresponsive to 1 L of fluids given by EMS. Patient will receive 1 additional unit here in the ED but is currently meeting criteria for septic shock. Time: 1258 Reevaluation #2: 16 cm triple lumen central line was placed successfully in the patient's left internal jugular vein. X-ray confirmation shows good catheter placement without signs of pneumothorax. Patient tolerated procedure well, states no contact concerns or complaints at this time. Time: 1429 Reevaluation #3: CT scan called for patient during central line placement. Called CT scan after procedure to notify the patient is ready for imaging. Time: 1436 Vital Signs Temperature 98.4 F 11/14/18 12:26 Pulse Rate 115 11/14/18 12:26 Respiratory Rate 22 11/14/18 12:26 Blood Pressure 72/60 11/14/18 12:26 O2 Sat by Pulse Oximetry 97 11/14/18 12:26 Temperature 98.4 F 11/14/18 12:26 Pulse Rate 108 11/14/18 16:16 Respiratory Rate 18 11/14/18 16:37 Blood Pressure 118/83 11/14/18 16:37 O2 Sat by Pulse Oximetry 97 11/14/18 16:16 Oxygen Delivery Oxygen Delivery Room Air Procedures - Central Line Placement Left IJ : Y : N : {CLII 2|} Consent Obtained: {ED_46_SC_46_CNST VERBAL|} : {IV_46_PP 1|} : Y : {IV_46_DTP 1|} : {ED_46_CL_46_CLP 2|} : {IV_46_PPS 1|} Local Anesthetic: {ED_46_STD_46_ANS 2|} : Y : {ED_46_CL_46_CLL 3|} Post Procedure: {ED_46_CL_46_CPO 1|} : {ED_46_CL_46_PPX 1|} Patient Tolerated Procedure: {ED_46_SC_46_PTLR WELL|} Complications: {ED_46_CL_46_C 1|} : Yehuda De Anda : Kitty Hernandez : [id number] : 1428 Medical Decision Making - Lab Data Lab results reviewed: Yes I reviewed the patient's lab results. Result diagrams: 11/14/18 12:42 11/14/18 12:42 Lab Results 11/14/18 11/14/18 11/14/18 Range/Units 12:42 12:42 12:42 WBC 20.4 H (4.3-11.1) K/mcL RBC 3.99 L (4.19-5.50) M/mcL Hgb 11.8 L (12.9-16.9) g/dL Hct 37.1 L (37.5-50.1) % MCV 93.0 (83.0-100.0) fL MCH 29.6 (28.0-33.3) pg MCHC 31.8 (31.6-35.5) g/dL RDW 16.5 H (11.5-14.5) % Plt Count 203 (140-400) K/mcL MPV 11.9 (9.4-12.4) fL Immature Gran % Test Not Performed Seg Neutrophils % 80.0 % Band Neutrophils % 18.0 H (0-4) % Lymphocytes % Test Not Performed Monocytes % Test Not Performed Eosinophils % Test Not Performed Basophils % Test Not Performed Metamyelocytes % 2.0 H (0) % Neutrophils # 20.0 H (1.6-8.9) K/mcL Lymphocytes # Test Not Performed Monocytes # Test Not Performed Eosinophils # Test Not Performed Basophils # Test Not Performed Platelet Estimate Normal (Normal) PT 15.1 H (9.4-12.1) Seconds INR 1.3 APTT 32.3 (26.0-36.0) Seconds Sodium 139 (136-145) mEq/L Potassium 3.3 L (3.5-5.1) mEq/L Chloride 103 (98-107) mEq/L Carbon Dioxide 21 L (23-29) mEq/L BUN 44 H (8-23) mg/dL Creatinine 1.25 (0.70-1.30) mg/dL Est GFR ( Amer) > 60 (> 60) Est GFR (Non-Af Amer) 59 L (> 60) BUN/Creatinine Ratio 35 H (6-26) Glucose 197 H (70-105) mg/dL Calculated Osmolality 305 H (280-300) Lactic Acid (0.5-2.2) mmol/L Calcium 8.9 (8.6-10.3) mg/dL Phosphorus 3.3 (2.7-4.5) mg/dL Magnesium 1.2 L (1.6-2.6) mg/dL Total Bilirubin 0.9 (0.3-1.0) mg/dL Direct Bilirubin 0.3 H (0.0-0.2) mg/dL Indirect Bilirubin 0.6 (0.0-1.2) mg/dL AST 16 (13-39) Units/L ALT 19 (7-52) Units/L Alkaline Phosphatase 70 (34-104) Units/L Troponin I < 0.03 (< 0.04) ng/mL B-Natriuretic Peptide (Less than 100) pg/mL Serum Total Protein 6.5 (6.4-8.9) g/dL Albumin 3.4 L (3.5-5.7) g/dL Globulin 3.1 (2.4-3.5) g/dL Albumin/Globulin Ratio 1.1 (1.1-2.2) Urine Color (Yellow) Urine Clarity (Clear) Urine pH (5.0-8.0) pH Units Ur Specific [place] (1.010-1.025) Urine Protein (Neg-Trace) mg/dL Urine Glucose (UA) (Normal) mg/dL Urine Ketones (Negative) mg/dL Urine Blood (Negative) Urine Nitrite (Negative) Urine Bilirubin (Negative) Urine Urobilinogen (Normal) mg/dL Ur Leukocyte Esterase (Negative) Urine Microscopic RBC (0-3) per hpf Urine Microscopic WBC (0-3) per hpf Ur Squamous Epith Cells (None-Few) per lpf Urine Bacteria (None-Few) per hpf Ur Culture Indicated? (NO) 11/14/18 11/14/18 11/14/18 Range/Units 12:42 12:42 13:06 WBC (4.3-11.1) K/mcL RBC (4.19-5.50) M/mcL Hgb (12.9-16.9) g/dL Hct (37.5-50.1) % MCV (83.0-100.0) fL MCH (28.0-33.3) pg MCHC (31.6-35.5) g/dL RDW (11.5-14.5) % Plt Count (140-400) K/mcL MPV (9.4-12.4) fL Immature Gran % Seg Neutrophils % % Band Neutrophils % (0-4) % Lymphocytes % Monocytes % Eosinophils % Basophils % Metamyelocytes % (0) % Neutrophils # (1.6-8.9) K/mcL Lymphocytes # Monocytes # Eosinophils # Basophils # Platelet Estimate (Normal) PT (9.4-12.1) Seconds INR APTT (26.0-36.0) Seconds Sodium (136-145) mEq/L Potassium (3.5-5.1) mEq/L Chloride (98-107) mEq/L Carbon Dioxide (23-29) mEq/L BUN (8-23) mg/dL Creatinine (0.70-1.30) mg/dL Est GFR ( Amer) (> 60) Est GFR (Non-Af Amer) (> 60) BUN/Creatinine Ratio (6-26) Glucose (70-105) mg/dL Calculated Osmolality (280-300) Lactic Acid 4.6 H* 2.9 H (0.5-2.2) mmol/L Calcium (8.6-10.3) mg/dL Phosphorus (2.7-4.5) mg/dL Magnesium (1.6-2.6) mg/dL Total Bilirubin (0.3-1.0) mg/dL Direct Bilirubin (0.0-0.2) mg/dL Indirect Bilirubin (0.0-1.2) mg/dL AST (13-39) Units/L ALT (7-52) Units/L Alkaline Phosphatase (34-104) Units/L Troponin I (< 0.04) ng/mL B-Natriuretic Peptide 326 H (Less than 100) pg/mL Serum Total Protein (6.4-8.9) g/dL Albumin (3.5-5.7) g/dL Globulin (2.4-3.5) g/dL Albumin/Globulin Ratio (1.1-2.2) Urine Color (Yellow) Urine Clarity (Clear) Urine pH (5.0-8.0) pH Units Ur Specific [place] (1.010-1.025) Urine Protein (Neg-Trace) mg/dL Urine Glucose (UA) (Normal) mg/dL Urine Ketones (Negative) mg/dL Urine Blood (Negative) Urine Nitrite (Negative) Urine Bilirubin (Negative) Urine Urobilinogen (Normal) mg/dL Ur Leukocyte Esterase (Negative) Urine Microscopic RBC (0-3) per hpf Urine Microscopic WBC (0-3) per hpf Ur Squamous Epith Cells (None-Few) per lpf Urine Bacteria (None-Few) per hpf Ur Culture Indicated? (NO) 01/19/19 01/19/19 Range/Units 14:51 16:30 WBC (4.3-11.1) K/mcL RBC (4.19-5.50) M/mcL Hgb (12.9-16.9) g/dL Hct (37.5-50.1) % MCV (83.0-100.0) fL MCH (28.0-33.3) pg MCHC (31.6-35.5) g/dL RDW (11.5-14.5) % Plt Count (140-400) K/mcL MPV (9.4-12.4) fL Immature Gran % Seg Neutrophils % % Band Neutrophils % (0-4) % Lymphocytes % Monocytes % Eosinophils % Basophils % Metamyelocytes % (0) % Neutrophils # (1.6-8.9) K/mcL Lymphocytes # Monocytes # Eosinophils # Basophils # Platelet Estimate (Normal) PT (9.4-12.1) Seconds INR APTT (26.0-36.0) Seconds Sodium (136-145) mEq/L Potassium (3.5-5.1) mEq/L Chloride (98-107) mEq/L Carbon Dioxide (23-29) mEq/L BUN (8-23) mg/dL Creatinine (0.70-1.30) mg/dL Est GFR ( Amer) (> 60) Est GFR (Non-Af Amer) (> 60) BUN/Creatinine Ratio (6-26) Glucose (70-105) mg/dL Calculated Osmolality (280-300) Lactic Acid 3.9 H (0.5-2.2) mmol/L Calcium (8.6-10.3) mg/dL Phosphorus (2.7-4.5) mg/dL Magnesium (1.6-2.6) mg/dL Total Bilirubin (0.3-1.0) mg/dL Direct Bilirubin (0.0-0.2) mg/dL Indirect Bilirubin (0.0-1.2) mg/dL AST (13-39) Units/L ALT (7-52) Units/L Alkaline Phosphatase (34-104) Units/L Troponin I (< 0.04) ng/mL B-Natriuretic Peptide (Less than 100) pg/mL Serum Total Protein (6.4-8.9) g/dL Albumin (3.5-5.7) g/dL Globulin (2.4-3.5) g/dL Albumin/Globulin Ratio (1.1-2.2) Urine Color Dark Yellow (Yellow) Urine Clarity Cloudy A (Clear) Urine pH 5.0 (5.0-8.0) pH Units Ur Specific [place] 1.023 (1.010-1.025) Urine Protein Trace (Neg-Trace) mg/dL Urine Glucose (UA) Normal (Normal) mg/dL Urine Ketones Trace H (Negative) mg/dL Urine Blood Negative (Negative) Urine Nitrite Negative (Negative) Urine Bilirubin Small H (Negative) Urine Urobilinogen Normal (Normal) mg/dL Ur Leukocyte Esterase Small H (Negative) Urine Microscopic RBC 5-15 H (0-3) per hpf Urine Microscopic WBC 5-15 H (0-3) per hpf Ur Squamous Epith Cells Many H (None-Few) per lpf Urine Bacteria None Seen (None-Few) per hpf Ur Culture Indicated? NO. A (NO) - Radiology Data Radiology results reviewed: Yes I reviewed the patient's radiology results. - EKG Data EKG #1 EKG attestation: Yes I reviewed and interpreted this EKG. EKG results narrative: Patient EKG shows atrial fibrillation with a ventricular rate of 112 bpm, QRS duration of 90 ms, QT/QTc interval 327/447 ms respectively. There are slight ST segment elevations less than 1 mm noted in the inferior leads which is likely due to old myocardial infarction, there are no significant ST segment elevations or depressions, pathologic Q waves, or abnormal T-wave inversions, or any other signs of acute ischemic change. This EKG performed today is generally c onsistent with prior EKG performed on 06/22/2018. Critical Care Time : Y : 35 Attestation: Critical care time 35 minutes managing patient's septic shock. Attestation Statement - Attestation Attestation: Patient was seen with resident physician. I reviewed the history, physical, assessment and plan, and agree with the findings. I also personally evaluated this patient and had [id number] time with this patient. 63-year-old male presents emergency Department with generalized weakness. Patient was found by his family to be covered in stool and confused. He is brought in via EMS. Patient answers all questions says he feels weak. He has got no focal weakness in upper or lower extremities. He denies complaints. He did just have a reanastomosis of a colostomy in August. Review of systems we did the best we could patient did not provide much history. Physical exam vital signs patient's hypertensive and tachycardic. ENT is unremarkable. Heart tachycardic regular rhythm. Lungs are clear. Abdomen is soft and nontender. Extremities the right lower extremity looks like cellulitis below the knee. The left lower extremity has a [id number] amputation. Both lower extremities move okay. Neurologically patient is easily arousable and follows commands and answer some questions. There is no obvious focal deficits. Skin cellulitic rashes noted on the right lower extremity. Psych unable to evaluate. ED course. Patient was given a liter of fluids by EMS. A second liter when he got here, and a third after that was done. With a difficult time getting his blood pressure up. A central line was placed into the left IJ I was there for the entire procedure and assisted. X-ray did not reveal any acute abnormalities. CT scan of the abdomen was obtained and revealed possible pyelonephritis and possible pneumonia.. EKG shows A. fib. The patient's presentation is consistent with septic shock. He was started on IV antibiotics, aggressively hydrated, and he will be admitted to the ICU. I agree with the resident physician assessment and plan. Hospital service was notified as to the need for admission. Critical care time was 35 minutes."
[2018-11-14 12:57] LABS: Hematocrit 37.1 % (37.5-50.1); Hemoglobin 11.8 g/dL (12.9-16.9); Mean Corpuscular HGB Conc 31.8 g/dL (31.6-35.5); Mean Corpuscular Hemoglobin 29.6 pg (28.0-33.3); Mean Platelet Volume 11.9 fL (9.4-12.4); Platelet Count 203 K/mcL (140-400); Red Blood Count 3.99 M/mcL (4.19-5.50); Red Cell Distribution Width 16.5 % (11.5-14.5)
[2018-11-14 13:06] LABS: INR 1.3; Prothrombin Time 15.1 Seconds (9.4-12.1)
[2018-11-14 13:09] LABS: Activated Partial Thrombo Time 32.3 Seconds (26.0-36.0)
[2018-11-14 13:18] LABS: Alanine Aminotransferase 19 Units/L (7-52); Albumin 3.4 g/dL (3.5-5.7); Albumin/Globulin Ratio 1.1 (1.1-2.2); Alkaline Phosphatase 70 Units/L (34-104); Aspartate Amino Transferase 16 Units/L (13-39); BUN/Creatinine Ratio 35 (6-26); Bilirubin,Direct 0.3 mg/dL (0.0-0.2); Bilirubin,Indirect 0.6 mg/dL (0.0-1.2); Bilirubin,Total 0.9 mg/dL (0.3-1.0); Blood Urea Nitrogen 44 mg/dL (8-23); Calcium 8.9 mg/dL (8.6-10.3); Carbon Dioxide 21 mEq/L (23-29); Chloride 103 mEq/L (98-107); Globulin 3.1 g/dL (2.4-3.5); Glucose 197 mg/dL (70-105); Magnesium 1.2 mg/dL (1.6-2.6); Osmolality,Calculated 305 (280-300); Phosphorous 3.3 mg/dL (2.7-4.5); Potassium 3.3 mEq/L (3.5-5.1); Sodium 139 mEq/L (136-145); Total Protein 6.5 g/dL (6.4-8.9); Troponin I < 0.03 ng/mL (< 0.04); eGFR For Non-African Americans 59 (> 60)
[2018-11-14 13:21] LABS: Platelet Estimate Normal (Normal)
[2018-11-14] MEDS ORDERED: 0.9 % Sodium Chloride 1,000 ML ONE ×2 (13:34→16:11)
[2018-11-14] MEDS: Norepinephrine 4 MG in D5% in Water 250 ML IVC SCH (14:07)
[2018-11-14 15:03] LABS: Bilirubin,Urine Small (Negative); Blood,Urine Negative (Negative); Clarity,Urine Cloudy (Clear); Color,Urine Dark Yellow (Yellow); Glucose,Urine (UA) Normal (Normal); Ketones,Urine Trace mg/dL (Negative); Leukocyte Esterase,Urine Small (Negative); Nitrite,Urine Negative (Negative); Protein,Urine Trace mg/dL (Neg-Trace); Specific Gravity,Urine 1.023 (1.010-1.025); Urobilinogen,Urine Normal (Normal)
[2018-11-14 15:06] LABS: Bacteria,Urine None Seen per hpf (None-Few); Squamous Epithelial Cell,Urine Many per lpf (None-Few)
[2018-11-14] MEDS ORDERED: *HR* OxyCODONE Immed Rel 5 MG TABLET PO PRN (17:16)
[2018-11-14] MEDS ORDERED: Naloxone 0.4 MG/ML INJ IVP PRN (17:16)
[2018-11-14] MEDS ORDERED: Acetaminophen 325 MG TABLET PO PRN (17:16)
[2018-11-14] MEDS ORDERED: *HR* HYDROcodone/Acet 5/325 mg TABLET PO PRN (17:16)
[2018-11-14] MEDS ORDERED: Potassium Chloride Elixir 20 MEQ/15 ML UDC PO ONE (17:19)
[2018-11-14] MEDS ORDERED: Dextrose Gel 15 GM/37.5 ML TUBE PO PRN ×2 (17:21)
[2018-11-14] MEDS ORDERED: *HR* Dextrose 50 % in Water (Syg) 50 ML SYRINGE IVP PRN (17:21)
[2018-11-14] MEDS ORDERED: D5% in Water 1,000 ML IVC PRN (17:21)
--- NOTE | 2018-11-14 17:28 | Internal Med History&Physical ---
Date of Encounter: 11/14/18 Time of Encounter: 17:23 Internal Medicine - H&P: HPI Chief complaint: Weakness/confusion/diarrhea Admitted From: Emergency Dept Plans for Post Hospital Care: Home History of present illness: Mr. Stone is a 63 year old male with history of type 2 diabetes, peripheral vascular disease, left below the knee amputation presents from home due to weakness, confusion, and diarrhea. Upon my exam patient is alert and oriented to person only and is unable to give a complete history however he can answer some questions appropriately. He reports that he had diarrhea earlier in the day. Other than that the patient does not endorse any other complaints. I did speak to the patient's son at bedside who states he came home from work this morning and noted that his father was covered in stool. He states that his father was much weaker and more confused than he normally is. He states that last time he saw him yesterday evening he was in his normal state of health. Patient was unable to precipitate and a full review of systems however he did deny chest pain, abdominal pain, nausea, fever, chills. Patient is altered at this time and I feel he does not have the capacity to have a CODE STATUS discussion. I did speak with the son states that his father would want to be full code. Past Med Surg Social Fam HX - Past Medical History Medical history: atrial fibrillation, CVA, diabetes, hyperlipidemia, hypertension, TIA Additional medical history: irregular heart beat Psychiatric history: no psych history - Past Surgical History Surgical History: other Additional surgical history: Left below the knee amputation with prosthesis, tonsillectomy, colon resection (Amanda's procedure), neck-artery - Social History Smoking Status: Never smoker Smokeless Tobacco Status: No Alcohol use: none Drug use: none - Additional Family History Additional family history: Patient denies any family history of medical issues however he is confused and a poor historian at this time so it is unclear how reliable this is Internal Medicine - H&P: Meds Atorvastatin [Lipitor] 40 mg PO HS 06/10/18 [History] Clopidogrel [Plavix] 75 mg PO DAILY 06/10/18 [History] Folic Acid 1 mg PO DAILY 06/10/18 [History] Furosemide [Lasix] 60 mg PO DAILY 06/10/18 [History] Isosorbide MONOnitrate (24 HR) [Imdur] 30 mg PO DAILY 06/10/18 [History] Metoprolol Succinate [Toprol Xl] 25 mg PO DAILY 06/10/18 [History] Multivit,Th Iron,Other Min [Therems-M] 1 tab PO DAILY 06/10/18 [History] Potassium Chloride [K-Tab ER] 20 meq PO DAILY 06/10/18 [History] metFORMIN [Glucophage] 500 mg PO BIDWM 06/10/18 [History] Aspirin 81 mg PO DAILY 30 Days #30 tab.chew 06/22/18 [Rx] Omeprazole [PriLOSEC] 20 mg PO DAILY@0630 capsule.dr 06/22/18 [Rx] Polyethylene Glycol 3350 [MiraLAX] 17 gm PO DAILY powd.pack 09/21/18 [Rx] Allergy/AdvReac Type Severity Reaction Status Date / Time No Known Allergies Allergy Verified 06/09/18 23:56 ROS unobtainable: due to mental status (patient confused and unable to participate in a complete review of symptoms) All Systems PM: A 10-system review of systems was performed and is negative for pertinent findings except as documented above in the HPI. - Constitutional Vitals: Temp Pulse Resp BP Pulse Ox 98.4 F 108 18 118/83 97 11/14/18 12:26 11/14/18 16:16 11/14/18 16:37 11/14/18 16:37 11/14/18 16:16 General appearance: Present: A&O X 1 Exam: lethargic - Head Head exam: Present: atraumatic, normal inspection, normocephalic - Eye Eye exam: Present: EOMI, PERRL - ENT ENT exam: Present: mucous membranes dry - Neck Neck exam general surgery: Present: full ROM, supple. Absent: nuchal rigidity - Respiratory Respiratory exam: Present: CTAB. Absent: rales, rhonchi, wheezes - Cardiovascular Cardiovascular exam: Present: irregular rhythm, tachycardia. Absent: gallop, rubs, systolic murmur - GI/Abdominal GI/Abdominal exam: Present: normal bowel sounds, soft, no peritoneal signs. Absent: distended, tenderness - Extremities Exam Extremities exam: Present: pedal edema (trace), warm, radial pulses palpable and symmetrical. Absent: tenderness Additional comments: Erythema to the right lower extremity extending from approximately the ankle to just below the knee with sharp line of demarcation. No induration or open wound noted - Back Exam Back exam: Absent: CVA tenderness (L), CVA tenderness (R) - Neurological Exam Neurological exam: Present: alert, altered, CN II-XII intact, no focal deficits, strengths equal and symetr throughout. Absent: oriented X3, facial droop, speech deficit - Skin Skin exam: Present: dry, intact, warm Internal Med - H&P Results - Labs CBC & Chem 7: 11/14/18 12:42 11/14/18 12:42 Labs: Short CBC 11/14/18 Range/Units 12:42 WBC 20.4 H (4.3-11.1) K/mcL Hgb 11.8 L (12.9-16.9) g/dL Hct 37.1 L (37.5-50.1) % Plt Count 203 (140-400) K/mcL Neutrophils # 20.0 H (1.6-8.9) K/mcL BMP 11/14/18 12:42 Sodium 139 Potassium 3.3 L Chloride 103 Carbon Dioxide 21 L BUN 44 H Creatinine 1.25 Glucose 197 H Calcium 8.9 Cardiac Enzymes 11/14/18 Range/Units 12:42 Troponin I < 0.03 (< 0.04) ng/mL Liver Function 11/14/18 Range/Units 12:42 Total Bilirubin 0.9 (0.3-1.0) mg/dL Direct Bilirubin 0.3 H (0.0-0.2) mg/dL AST 16 (13-39) Units/L ALT 19 (7-52) Units/L Alkaline Phosphatase 70 (34-104) Units/L Albumin 3.4 L (3.5-5.7) g/dL Urine 11/14/18 Range/Units 14:51 Urine Color Dark Yellow (Yellow) Urine Clarity Cloudy A (Clear) Urine pH 5.0 (5.0-8.0) pH Units Ur Specific [place] 1.023 (1.010-1.025) Urine Protein Trace (Neg-Trace) mg/dL Urine Glucose (UA) Normal (Normal) mg/dL - Impressions ITS Impressions Chest X-Ray 11/14/18 12:28 IMPRESSION: No acute cardiopulmonary process D/ / 11/14/2018 12:59:28 Kenrick Curry MD / [facility] Interpreting Provider: Kenrick Curry MD Abdomen/Pelvis CT 11/14/18 12:29 IMPRESSION: Mild bladder wall thickening suggesting infection. Mild perinephric stranding is nonspecific but given bladder wall thickening could indicate pyelonephritis. Left lower lobe opacities measuring up to 3 cm are likely infectious. Recommend follow-up in 3-6 months. D/ / 11/14/2018 15:14:16 Ender Martino MD / [facility] Interpreting Provider: Ender Martino MD Head CT 11/14/18 12:29 IMPRESSION: No acute intracranial abnormality. Stable remote bilateral occipital lobe infarcts and chronic microvascular ischemic change. D/ / 11/14/2018 15:09:25 Kenrick Curry MD / [facility] Interpreting Provider: Kenrick Curry MD Chest X-Ray 11/14/18 13:50 IMPRESSION: New left IJ central venous catheter projects over the SVC. No pneumothorax identified. D/ / 11/14/2018 14:08:55 Kenrick Curry MD / [facility] Interpreting Provider: Kenrick Curry MD - Assessment and plan (1) Septic shock Current Visit: Yes Status: Acute Assessment and plan: Patient presents with leukocytosis with bandemia, tachycardia with source unclear but could be cellulitis versus pyelonephritis versus infectious diarrhea. Patient is is noted to be in shock, received 3 L of fluid in the emergency department and remained hypotensive so norepinephrine was initiated. Patient is stable on norepinephrine at this time. Lactate is noted to be elevated at 4.6, trending down to 3.9, we will continue to trend. Blood cultures and urine culture have been obtained. Antibiotics initiated with vancomycin and Zosyn. Patient is high risk for clinical decompensation given septic shock requiring vasopressor therapy. (2) Cellulitis Current Visit: Yes Status: Acute Assessment and plan: Patient has erythema of the right lower extremity from the ankle to the knee with clear line of demarcation. This is been outlined. No wound or area of drainage noted. This may be the source of infection. Patient is on broad- spectrum antibiotics which would cover good cellulitis infection. Qualifiers: Site of cellulitis: extremity Site of cellulitis of extremity: lower extremity Laterality: right Qualified Code(s): L03.115 - Cellulitis of right lower limb (3) Pyelonephritis Current Visit: Yes Status: Acute Assessment and plan: Patient presents in septic shock as above with abnormal urinalysis showing l eukocyte esterase. CT scan of the abdomen/pelvis was personally reviewed which revealed mild bladder wall thickening as well as perinephric stranding. Given these findings and concern for pyelonephritis being the source for contributing to the patient's septic shock. No CVA tenderness is noted. Patient is on broad-spectrum antibiotics with vancomycin and Zosyn. Urine culture pending. (4) Diarrhea Current Visit: Yes Status: Acute Assessment and plan: Patient reports a one-day history of diarrhea and the son states that when he came home from work this morning patient was covered in stool. Given his septic shock I am concern for infectious source of diarrhea. GI panel including C. difficile testing has been ordered. Isolation precautions until results. Qualifiers: Diarrhea type: presumed infectious Qualified Code(s): R19.7 - Diarrhea, unspecified (5) Acute kidney injury Current Visit: Yes Status: Acute Assessment and plan: Patient presents with mild IBAN with a creatinine of 1.25 and a GFR 59. Likely due to septic shock. UA does not show any blood or protein patient was adequately fluid hydrated and vasopressors initiated. Patient has excellent urine output. Continue to monitor renal function daily. (6) Hypokalemia Current Visit: Yes Status: Acute Assessment and plan: Potassium mildly low at 3.3. Likely due to diarrhea. Patient was given 20 mEq in the ED, we will give 40 more here in the ICU. Recheck in the morning. (7) Hypomagnesemia Current Visit: Yes Status: Acute Assessment and plan: Magnesium low at 1.2. Replace with 4 g total. Recheck in the morning. (8) Diabetes Current Visit: Yes Status: Chronic Assessment and plan: Patient is on diabetic on metformin at home. Blood sugars mildly elevated at 197 on presentation. Hold home oral hyperglycemic agents and institute sliding scale insulin. Qualifiers: Diabetes mellitus type: type 2 Diabetes mellitus intermediate frame tender insulin use: without skilled nursing use Diabetes mellitus complication status: with circulatory complication Diabetes mellitus complication detail: with peripheral angiopathy without gangrene Qualified Code(s): E11.51 - Type 2 diabetes mellitus with diabetic peripheral angiopathy without gangrene (9) Afib Current Visit: Yes Status: Chronic Assessment and plan: EKG personally reviewed and shows a rate of 103 and atrial fibrillation, no ischemic changes noted. Elevated rate likely due to sepsis. Hold home beta constance in the setting of hypotension and septic shock requiring vasopressor therapy. Patient not on systemic anticoagulation at home Qualifiers: Atrial fibrillation type: chronic Qualified Code(s): I48.2 - Chronic atrial fibrillation (10) PAD (peripheral artery disease) Current Visit: Yes Status: Acute Assessment and plan: Patient has peripheral vascular disease with left below the knee amputation and known carotid artery stenosis. Patient currently has good pulses and no signs of hypoperfusion. Continue aspirin and Plavix. (11) Coronary artery disease Current Visit: Yes Status: Acute Assessment and plan: Patient was unable to elaborate on his history of coronary artery disease however review of records reveal that he had a positive stress test in August as an outpatient however I do not see that he underwent cardiac catheterization after this. Patient is chest pain-free at this time with no concerning ischemic changes on EKG and a negative troponin. We will continue aspirin and Plavix and closely monitor for chest pain. Qualifiers: Coronary Disease-Associated Artery/Lesion type: [place] artery [place] vs. transplanted heart: [place] heart Associated angina: without angina Qualified Code(s): I25.10 - Atherosclerotic heart disease of [place] coronary artery without angina pectoris (12) Hypertension Current Visit: No Status: Chronic Assessment and plan: Patient has history of hypertension on beta constance at home. This is been held due to hypotension in the setting of septic shock. Continue closely monitor blood pressure and restart one shock resolves. Qualifiers: Hypertension type: essential hypertension Qualified Code(s): I10 - Essential (primary) hypertension (13) DVT prophylaxis Current Visit: Yes Status: Acute Assessment and plan: Heparin 5000 units subcutaneous twice a day - Time Spent With Patient Total time spent is greater than 50% in coordination of care (as documented) at patient's floor/unit and/or counseling patient:
[2018-11-14] MEDS ORDERED: Vancomycin (wt based) 1,000 MG VIAL IVPB SCH (18:00)
--- NOTE | 2018-11-14 18:12 | Sepsis Event Note ---
Sepsis Reassessment Note - Evaluation Current Stage of Sepsis: septic shock Possible Source of Sepsis: genitourinary (Versus GI versus skin and soft tissue) - Focused Exam Date of Encounter: 11/14/18 Time of Encounter: 18:11 Vital Signs: Vital Signs Temp Pulse Resp BP Pulse Ox 11/14/18 16:37 18 118/83 11/14/18 16:16 108 116/68 97 11/14/18 15:45 107 22 104/73 98 11/14/18 15:14 114 16 110/67 98 11/14/18 14:37 123 113/76 98 11/14/18 14:19 116 16 134/83 98 11/14/18 14:00 106 20 89/66 100 11/14/18 13:47 105 18 89/62 100 11/14/18 13:27 93 16 87/59 100 11/14/18 13:16 103 16 86/62 99 11/14/18 13:00 98 16 67/49 99 11/14/18 12:45 97 16 79/53 100 11/14/18 12:26 98.4 F 115 22 72/60 97 Respiratory Exam: Present: CTA bilaterally Cardiovascular Exam: Present: irregulary irregular, tachycardia Capillary Refill: < 2 seconds Peripheral Pulse Strength: 3+ normal Peripheral Pulse Location: Radial Skin Exam: unremarkable - Reassessment Comments Comments: Patient remains in septic shock but mean arterial pressures are 70-80 on 4 mcgs of Levophed, will attempt to wean off.
[2018-11-14] MEDS: *HR* Heparin 5,000 UNIT/ML VIAL SQ SCH (18:46)
[2018-11-14] MEDS ORDERED: Insulin LISPRO 300 UNITS/3 ML VIAL SQ SCH (21:00)
[2018-11-14] MEDS: Piperacillin/Tazobactam 3.375 GM in 0.9 % Sodium Chloride Mini Bag 100 ML IVPB SCH (21:05)
[2018-11-14 22:43] LABS: Adenovirus F 40/41 PCR Not detected (Not detect); Astrovirus PCR Not detected (Not detect); C.difficile Toxin A/B Gene PCR Not detected (Not detect); Campylobacter by PCR Not detected (Not detect); Cryptosporidium by PCR Not detected (Not detect); Cyclospora cayetanensis PCR Not detected (Not detect); E. coli O157 by PCR Not detected (Not detect); Entamoeba histolytica PCR Not detected (Not detect); Enteroaggregative E.coli(EAEC) Not detected (Not detect); Enteropathogenic E.coli(EPEC) Not detected (Not detect); Enterotoxigenic E.coli (ETEC) Not detected (Not detect); Giardia lamblia PCR Not detected (Not detect); Norovirus GI/GII PCR Not detected (Not detect); Plesiomonas shigelloides PCR Not detected (Not detect); Rotavirus A PCR Not detected (Not detect); Salmonella PCR Not detected (Not detect); Sapovirus PCR Not detected (Not detect); Shig/EnteroinvasiveE coli EIEC Not detected (Not detect); Shigalike tox-prod E coli STEC Not detected (Not detect); Vibrio PCR Not detected (Not detect); Vibrio cholerae PCR Not detected (Not detect); Yersinia enterocolitica PCR Not detected (Not detect)
[2018-11-15 04:03] LABS: Albumin 2.8 g/dL (3.5-5.7); Bilirubin,Direct 0.2 mg/dL (0.0-0.2); Bilirubin,Indirect 0.3 mg/dL (0.0-1.2); Bilirubin,Total 0.5 mg/dL (0.3-1.0); Globulin 2.8 g/dL (2.4-3.5); Total Protein 5.6 g/dL (6.4-8.9)
[2018-11-15 04:04] LABS: BUN/Creatinine Ratio 40 (6-26); Blood Urea Nitrogen 40 mg/dL (8-23); Calcium 8.2 mg/dL (8.6-10.3); Carbon Dioxide 21 mEq/L (23-29); Chloride 110 mEq/L (98-107); Glucose 107 mg/dL (70-105); Magnesium 1.9 mg/dL (1.6-2.6); Osmolality,Calculated 294 (280-300); Potassium 2.9 mEq/L (3.5-5.1); Sodium 137 mEq/L (136-145); eGFR For Non-African Americans > 60 (> 60)
[2018-11-15 04:14] LABS: Basophils % 0.2 %; Eosinophils % 0.2 %; Hematocrit 30.2 % (37.5-50.1); Immature Granulocytes % 0.6 % (0-4); Lymphocytes # 0.3 K/mcL (0.6-4.6); Lymphocytes % 2.3 %; Mean Corpuscular HGB Conc 31.8 g/dL (31.6-35.5); Mean Corpuscular Hemoglobin 29.2 pg (28.0-33.3); Mean Corpuscular Volume 91.8 fL (83.0-100.0); Monocytes # 0.8 K/mcL (0.0-1.3); Monocytes % 6.3 %; Platelet Count 140 K/mcL (140-400); Red Blood Count 3.29 M/mcL (4.19-5.50); Red Cell Distribution Width 16.7 % (11.5-14.5); Segmented Neutrophils % 90.4 %
[2018-11-15] MEDS ORDERED: Potassium Phosphate 44 MEQ in 0.9 % Sodium Chloride 250 ML IVPB PRN (04:21)
[2018-11-15 04:35] LABS: Hemoglobin 9.6 g/dL (12.9-16.9)
[2018-11-15] MEDS: Piperacillin/Tazobactam 3.375 GM in 0.9 % Sodium Chloride Mini Bag 100 ML IVPB SCH ×3 (04:44→21:41)
[2018-11-15] MEDS: Potassium Chloride 40 MEQ/200 ML BAG IVPB PRN ×2 (04:44→11:20)
[2018-11-15] MEDS: *HR* Heparin 5,000 UNIT/ML VIAL SQ SCH ×2 (04:45→17:17)
[2018-11-15] MEDS: Insulin LISPRO 300 UNITS/3 ML VIAL SQ SCH ×4 (07:49→21:42)
--- NOTE | 2018-11-15 08:10 | Internal Med Progress Note ---
Hospitalist Progress Note - Encounter Date of Encounter: 11/15/18 Time of Encounter: 08:07 - Subjective Interval History: Patient seen and examined at bedside. Patient states that he feels pretty good today. He states his diarrhea is improved. He appears less confused than yesterday evening. He denies fever, chills, chest pain, shortness of breath. - Exam Vitals: Temp Pulse Resp BP Pulse Ox 101.2 F H 103 18 91/51 95 11/15/18 06:00 11/15/18 06:00 11/15/18 06:00 11/15/18 06:00 11/15/18 06:00 Exam: Gen.: Alert and oriented 3, no acute distress, mildly lethargic Heart: Irregularly irregular, tachycardic. No murmurs, rubs, gallops Lungs: Clear to auscultation bilaterally, no rales, rhonchi, wheezes Abdomen: Soft, nontender, nondistended. Normoactive bowel sounds. Extremities: Right lower extremity erythema has improved and has receded from initial marking yesterday. No drainage, induration, or area of fluctuance noted Neuro: Cranial nerves II through XII intact, No focal deficits - Assessment and Plan (1) Septic shock Current Visit: Yes Status: Resolved Assessment and Plan: Septic shock is resolved at this time. Patient is no longer requiring vasopressors and maintaining mean arterial pressure greater than 65. Lactate normalized GI panel showed no evidence of infectious diarrhea, C. difficile negative. Awaiting blood and urine cultures. At this point I feel like cellulitis and/or pyelonephritis most likely cause of the patient's septic shock. Continue to closely monitor blood pressure (2) Cellulitis Current Visit: Yes Status: Acute Assessment and Plan: Cellulitis appears improved. Erythema is regressed from marking last night. Continue vancomycin and Zosyn. (3) Pyelonephritis Current Visit: Yes Status: Acute Assessment and Plan: Patient appears clinically improved. Sepsis is improving as above. Patient still has urinary catheter in place, we will discontinue today. Urine culture pending (4) Diarrhea Current Visit: Yes Status: Acute Assessment and Plan: Improved. GI panel was negative including negative for C. difficile. If worsens we will treat symptomatically. (5) Acute kidney injury Current Visit: Yes Status: Resolved Assessment and Plan: Resolved at this time. Likely due to septic shock. Creatinine started at 1.25 is, is down to 0.99. Good urine output. (6) Hypokalemia Current Visit: Yes Status: Acute Assessment and Plan: Patient remains hypokalemic. 2.9 this morning. Replacement per electrolyte protocol. (7) Hypomagnesemia Current Visit: Yes Status: Resolved Assessment and Plan: Resolved. Magnesium 1.9. Continue to monitor daily. (8) Diabetes Current Visit: Yes Status: Chronic Assessment and Plan: Blood sugar under good control. Continue sliding scale insulin with goal blood sugar between 180-140. (9) Afib Current Visit: Yes Status: Chronic Assessment and Plan: Heart rate improved, 90s-100s. Blood pressure low normal, still off pressors. Continue to hold rate controlling medications as the patient continues to improve from his sepsis. (10) PAD (peripheral artery disease) Current Visit: Yes Status: Acute Assessment and Plan: Patient has peripheral vascular disease with left below the knee amputation and known carotid artery stenosis. Continue aspirin and Plavix. (11) Coronary artery disease Current Visit: Yes Status: Acute Assessment and Plan: Patient is chest pain-free at this time with no concerning ischemic changes on EKG and a negative troponin. We will continue aspirin and Plavix and closely mo nitor for chest pain. (12) Hypertension Current Visit: No Status: Chronic Assessment and Plan: Patient has history of hypertension on beta constance at home. Map around 70, off vasopressors. Continue to hold blood pressure medications as blood pressure improves. (13) DVT prophylaxis Current Visit: Yes Status: Acute Assessment and Plan: Heparin 5000 units subcutaneous twice a day - Time Spent with Patient Total time spent is greater than 50% in coordination of care (as documented) at patient's floor/unit and/or counseling patient: Internal Medicine: Result - Labs CBC & Chem 7: 11/15/18 03:30 11/15/18 03:30 Labs: Short CBC 11/14/18 11/15/18 Range/Units 12:42 03:30 WBC 20.4 H 13.3 H (4.3-11.1) K/mcL Hgb 11.8 L 9.6 L D (12.9-16.9) g/dL Hct 37.1 L 30.2 L (37.5-50.1) % Plt Count 203 140 (140-400) K/mcL Neutrophils # 20.0 H 12.0 H (1.6-8.9) K/mcL BMP 11/14/18 11/15/18 12:42 03:30 Sodium 139 137 Potassium 3.3 L 2.9 L Chloride 103 110 H Carbon Dioxide 21 L 21 L BUN 44 H 40 H Creatinine 1.25 0.99 Glucose 197 H 107 H Calcium 8.9 8.2 L Cardiac Enzymes 11/14/18 Range/Units 12:42 Troponin I < 0.03 (< 0.04) ng/mL Liver Function 11/14/18 11/15/18 Range/Units 12:42 03:30 Total Bilirubin 0.9 0.5 (0.3-1.0) mg/dL Direct Bilirubin 0.3 H 0.2 (0.0-0.2) mg/dL AST 16 17 (13-39) Units/L ALT 19 18 (7-52) Units/L Alkaline Phosphatase 70 55 (34-104) Units/L Albumin 3.4 L 2.8 L (3.5-5.7) g/dL Urine 11/14/18 Range/Units 14:51 Urine Color Dark Yellow (Yellow) Urine Clarity Cloudy A (Clear) Urine pH 5.0 (5.0-8.0) pH Units Ur Specific [place] 1.023 (1.010-1.025) Urine Protein Trace (Neg-Trace) mg/dL Urine Glucose (UA) Normal (Normal) mg/dL - ABG Interpretation ABG results: PT/INR, D-dimer PT 15.1 Seconds (9.4-12.1) H 11/14/18 12:42 - Impressions Impressions Chest X-Ray 11/14/18 12:28 IMPRESSION: No acute cardiopulmonary process D/ / 11/14/2018 12:59:28 Kenrick Curry MD / [facility] Interpreting Provider: Kenrick Curry MD Abdomen/Pelvis CT 11/14/18 12:29 IMPRESSION: Mild bladder wall thickening suggesting infection. Mild perinephric stranding is nonspecific but given bladder wall thickening could indicate pyelonephritis. Left lower lobe opacities measuring up to 3 cm are likely infectious. Recommend follow-up in 3-6 months. D/ / 11/14/2018 15:14:16 Ender Matrino MD / [facility] Interpreting Provider: Ender Martino MD Head CT 11/14/18 12:29 IMPRESSION: No acute intracranial abnormality. Stable remote bilateral occipital lobe infarcts and chronic microvascular ischemic change. D/ / 11/14/2018 15:09:25 Kenrick Curry MD / [facility] Interpreting Provider: Kenrick Curry MD Chest X-Ray 11/14/18 13:50 IMPRESSION: New left IJ central venous catheter projects over the SVC. No pneumothorax identified. 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 transplanted heart: [place] heart Associated angina: without angina Qualified Code(s): I25.10 - Atherosclerotic heart disease of [place] coronary artery without angina pectoris (12) Hypertension Qualifiers: Hypertension type: essential hypertension Qualified Code(s): I10 - Essential (primary) hypertension
[2018-11-15] MEDS ORDERED: Aspirin 81 MG TAB.CHEW PO SCH (09:00)
[2018-11-15] MEDS: Norepinephrine 4 MG in D5% in Water 250 ML IVC SCH (14:11)
[2018-11-15] MEDS ORDERED: Dextrose Gel 15 GM/37.5 ML TUBE PO PRN ×2 (18:15)
[2018-11-15] MEDS ORDERED: Naloxone 0.4 MG/ML INJ IVP PRN (18:15)
[2018-11-15] MEDS ORDERED: *HR* HYDROcodone/Acet 5/325 mg TABLET PO PRN (18:15)
[2018-11-15] MEDS ORDERED: *HR* Dextrose 50 % in Water (Syg) 50 ML SYRINGE IVP PRN (18:15)
[2018-11-15] MEDS ORDERED: *HR* OxyCODONE Immed Rel 5 MG TABLET PO PRN (18:15)
[2018-11-15] MEDS ORDERED: Acetaminophen 325 MG TABLET PO PRN (18:15)
[2018-11-15] MEDS ORDERED: D5% in Water 1,000 ML IVC PRN (18:15)
[2018-11-16 03:26] LABS: Basophils % 0.3 %; Eosinophils # 0.5 K/mcL (0.0-0.6); Eosinophils % 3.9 %; Hematocrit 30.7 % (37.5-50.1); Hemoglobin 9.7 g/dL (12.9-16.9); Immature Granulocytes % 1.5 % (0-4); Lymphocytes # 0.6 K/mcL (0.6-4.6); Lymphocytes % 5.1 %; Mean Corpuscular HGB Conc 31.6 g/dL (31.6-35.5); Mean Corpuscular Hemoglobin 29.2 pg (28.0-33.3); Mean Corpuscular Volume 92.5 fL (83.0-100.0); Mean Platelet Volume 12.1 fL (9.4-12.4); Monocytes # 0.6 K/mcL (0.0-1.3); Monocytes % 4.8 %; Neutrophils # 10.2 K/mcL (1.6-8.9); Platelet Count 130 K/mcL (140-400); Red Blood Count 3.32 M/mcL (4.19-5.50); Red Cell Distribution Width 16.6 % (11.5-14.5); Segmented Neutrophils % 84.4 %
[2018-11-16 03:54] LABS: BUN/Creatinine Ratio 32 (6-26); Blood Urea Nitrogen 28 mg/dL (8-23); Carbon Dioxide 19 mEq/L (23-29); Chloride 111 mEq/L (98-107); Glucose 101 mg/dL (70-105); Magnesium 2.1 mg/dL (1.6-2.6); Osmolality,Calculated 282 (280-300); Potassium 3.9 mEq/L (3.5-5.1); Sodium 133 mEq/L (136-145); eGFR For Non-African Americans > 60 (> 60)
[2018-11-16] MEDS: Piperacillin/Tazobactam 3.375 GM in 0.9 % Sodium Chloride Mini Bag 100 ML IVPB SCH ×3 (06:18→21:31)
[2018-11-16] MEDS: *HR* Heparin 5,000 UNIT/ML VIAL SQ SCH ×2 (06:18→17:42)
[2018-11-16] MEDS: Insulin LISPRO 300 UNITS/3 ML VIAL SQ SCH ×4 (09:11→21:32)
[2018-11-16] MEDS: Aspirin 81 MG TAB.CHEW PO SCH (10:15)
--- NOTE | 2018-11-16 17:14 | Electrocardiograph Report ---
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
--- NOTE | 2018-11-16 17:49 | Internal Med Progress Note ---
Hospitalist Progress Note - Encounter Date of Encounter: 11/16/18 Time of Encounter: 14:00 - Subjective Interval History: Patient seen and examined at bedside. Patient states that he feels better today. He states his diarrhea has resolved. He appears much less confused than yesterday. He denies fever, chills, chest pain, shortness of breath. - Exam Vitals: Temp Pulse Resp BP Pulse Ox 98.2 F 84 14 97/69 98 11/16/18 06:00 11/16/18 16:01 11/16/18 06:00 11/16/18 16:01 11/16/18 16:01 Exam: Gen.: Alert and oriented 3, no acute distress, mildly lethargic Heart: Irregularly irregular, regular rate. No murmurs, rubs, gallops Lungs: Clear to auscultation bilaterally, no rales, rhonchi, wheezes Abdomen: Soft, nontender, nondistended. Normoactive bowel sounds. Extremities: Right lower extremity erythema has improved from yesterday. No drainage, induration, or area of fluctuance noted Neuro: Cranial nerves II through XII intact, No focal deficits - Assessment and Plan (1) Septic shock Current Visit: Yes Status: Resolved Assessment and Plan: Septic shock is resolved at this time. Patient is no longer requiring vasopressors and maintaining mean arterial pressure greater than 65. Lactate normalized GI panel showed no evidence of infectious diarrhea, C. difficile negative. Awaiting blood and urine cultures no growth to date. At this point I feel like cellulitis and/or pyelonephritis most likely cause of the patient's septic shock. Continue to closely monitor blood pressure (2) Cellulitis Current Visit: Yes Status: Acute Assessment and Plan: Cellulitis appears improved. Erythema is regressed from marking last night. Continue vancomycin and Zosyn. (3) Pyelonephritis Current Visit: Yes Status: Acute Assessment and Plan: Patient appears clinically improved. Sepsis is improving as above. Urinary catheter discontinued yesterday. Urine culture pending (4) Diarrhea Current Visit: Yes Status: Resolved Assessment and Plan: Resolved. GI panel was negative including negative for C. difficile. If worsens we will treat symptomatically. (5) Acute kidney injury Current Visit: Yes Status: Resolved Assessment and Plan: Resolved at this time. Likely due to septic shock. Creatinine started at 1.25 is, is down to 0.88. Good urine output. (6) Hypokalemia Current Visit: Yes Status: Resolved Assessment and Plan: Resolved. Potassium 3.9. (7) Hypomagnesemia Current Visit: Yes Status: Resolved Assessment and Plan: Resolved. Magnesium 2.1. Continue to monitor daily. (8) Diabetes Current Visit: Yes Status: Chronic (9) Afib Current Visit: Yes Status: Chronic Assessment and Plan: Heart rate improved, 80s. Blood pressure low normal, off pressors. Continue to hold rate controlling medications as the patient continues to improve from his sepsis. (10) PAD (peripheral artery disease) Current Visit: Yes Status: Acute (11) Coronary artery disease Current Visit: Yes Status: Acute (12) Hypertension Current Visit: No Status: Chronic (13) DVT prophylaxis Current Visit: Yes Status: Acute - Time Spent with Patient Total time spent is greater than 50% in coordination of care (as documented) at patient's floor/unit and/or counseling patient: Internal Medicine: Result - Labs CBC & Chem 7: 11/16/18 03:11 11/16/18 03:11 Labs: Short CBC 11/16/18 Range/Units 03:11 WBC 12.1 H (4.3-11.1) K/mcL Hgb 9.7 L (12.9-16.9) g/dL Hct 30.7 L (37.5-50.1) % Plt Count 130 L (140-400) K/mcL Neutrophils # 10.2 H (1.6-8.9) K/mcL BMP 11/16/18 03:11 Sodium 133 L Potassium 3.9 D Chloride 111 H Carbon Dioxide 19 L BUN 28 H Creatinine 0.88 Glucose 101 Calcium 8.0 L - ABG Interpretation ABG results: PT/INR, D-dimer PT 15.1 Seconds (9.4-12.1) H 11/14/18 12:42 Consult Discharge Plan - Plan Referrals: NONE,PCP [Primary Care Provider] - __ (2) Cellulitis Qualifiers: Site of cellulitis: extremity Site of cellulitis of extremity: lower extremity Laterality: right Qualified Code(s): L03.115 - Cellulitis of right lower limb (4) Diarrhea Qualifiers: Diarrhea type: unspecified type Qualified Code(s): R19.7 - Diarrhea, unspecified (8) Diabetes Qualifiers: Diabetes mellitus type: type 2 Diabetes mellitus intermediate insulin use: without field application engineer use Diabetes mellitus complication status: with circulatory complication Diabetes mellitus complication detail: with peripheral angiopathy without gangrene Qualified Code(s): E11.51 - Type 2 diabetes mellitus with diabetic peripheral angiopathy without gangrene (9) Afib Qualifiers: Atrial fibrillation type: chronic Qualified Code(s): I48.2 - Chronic atrial fibrillation (11) Coronary artery disease Qualifiers: Coronary Disease-Associated Artery/Lesion type: [place] artery [place] vs. transplanted heart: [place] heart Associated angina: without angina Qualified Code(s): I25.10 - Atherosclerotic heart disease of [place] coronary artery without angina pectoris (12) Hypertension Qualifiers: Hypertension type: essential hypertension Qualified Code(s): I10 - Essential (primary) hypertension
[2018-11-17 04:46] LABS: Basophils % 0.3 %; Eosinophils # 0.4 K/mcL (0.0-0.6); Eosinophils % 4.1 %; Hematocrit 30.5 % (37.5-50.1); Hemoglobin 9.6 g/dL (12.9-16.9); Immature Granulocytes % 0.6 % (0-4); Lymphocytes # 0.7 K/mcL (0.6-4.6); Lymphocytes % 7.4 %; Mean Corpuscular HGB Conc 31.5 g/dL (31.6-35.5); Mean Corpuscular Hemoglobin 29.1 pg (28.0-33.3); Mean Corpuscular Volume 92.4 fL (83.0-100.0); Mean Platelet Volume 12.3 fL (9.4-12.4); Monocytes # 0.6 K/mcL (0.0-1.3); Monocytes % 6.2 %; Platelet Count 131 K/mcL (140-400); Red Cell Distribution Width 16.7 % (11.5-14.5); Segmented Neutrophils % 81.4 %
[2018-11-17 05:10] LABS: BUN/Creatinine Ratio 28 (6-26); Blood Urea Nitrogen 20 mg/dL (8-23); Carbon Dioxide 21 mEq/L (23-29); Chloride 109 mEq/L (98-107); Glucose 151 mg/dL (70-105); Magnesium 1.8 mg/dL (1.6-2.6); Osmolality,Calculated 290 (280-300); Potassium 3.7 mEq/L (3.5-5.1); Sodium 137 mEq/L (136-145); eGFR For Non-African Americans > 60 (> 60)
[2018-11-17] MEDS: Piperacillin/Tazobactam 3.375 GM in 0.9 % Sodium Chloride Mini Bag 100 ML IVPB SCH ×3 (06:39→23:13)
[2018-11-17] MEDS: *HR* Heparin 5,000 UNIT/ML VIAL SQ SCH ×2 (06:39→17:17)
[2018-11-17] MEDS ORDERED: Aminoglycoside Consult 1 EACH MC ONE (07:17)
[2018-11-17] MEDS: Insulin LISPRO 300 UNITS/3 ML VIAL SQ SCH ×4 (07:26→22:51)
[2018-11-17] MEDS: Aspirin 81 MG TAB.CHEW PO SCH (09:46)
[2018-11-17] MEDS ORDERED: Furosemide 40 MG/4 ML VIAL IVP ONE (15:01)
--- NOTE | 2018-11-17 15:07 | Internal Med Progress Note ---
Hospitalist Progress Note - Encounter Date of Encounter: 11/17/18 Time of Encounter: 15:04 - Subjective Interval History: Patient is doing well, on room air. But he has significant bilateral leg swellings, left-sided prosthesis barely can fit into, due to swelling. right leg cellulitis looks okay, but still pretty red and tender. We will start the Lasix he was taking 60 mg daily at home, will giv eone dose IV 40 mg tonight. Home meds reviewed, and restarted BP improved - Exam Vitals: Temp Pulse Resp BP Pulse Ox 98.4 F 95 13 134/89 98 11/17/18 04:00 11/17/18 07:08 11/17/18 04:00 11/17/18 07:08 11/17/18 04:00 Exam: CONSTITUTIONAL: patient appears as an age appropriate male in no acute distress. EYES Clear sclerae, bilateral pupils are equal, reactive to light. EMOI. RESPIRATORY: No accessory muscle use, bilateral clear to auscultation, no wheezi ng, no crackles/rales. CARDIOVASCULAR: Regular heart rate, normal S1 and S2, no murmurs GASTROINTESTINAL: bowel sounds present, soft, no tenderness. MUSCULOSKELETAL: Joints in normal range of motion, left BKA, right leg edema 4+ NEUROLOGIC: CN II to XII are grossly intact, no focal neurological deficit. DVT Prophylaxis: Heparin subcutaneous twice a day - Summary of Assessment and Plan Summary of Assessment and Plan: (1) Septic shock Current Visit: Yes Status: Resolved Assessment and Plan: Septic shock is resolved at this time. (2) Cellulitis Current Visit: Yes Status: Acute Assessment and Plan: Cellulitis appears improved. Erythema is regressed from marking last night. Continue vancomycin and Zosyn. will start lasix (3) Pyelonephritis Current Visit: Yes Status: Acute Assessment and Plan: Patient appears clinically improved. Sepsis is improving as above. (4) Diarrhea Current Visit: Yes Status: Resolved Assessment and Plan: Resolved. GI panel was negative including negative for C. difficile. If worsens we will treat symptomatically. (5) Acute kidney injury Current Visit: Yes Status: Resolved Assessment and Plan: Resolved at this time. Likely due to septic shock. Creatinine started at 1.25 is, is down to 0.88. Good urine output. (6) Hypokalemia Current Visit: Yes Status: Resolved Assessment and Plan: Resolved. Potassium 3.9. (7) Hypomagnesemia Current Visit: Yes Status: Resolved Assessment and Plan: Resolved. Magnesium 2.1. Continue to monitor daily. (8) Diabetes Current Visit: Yes Status: Chronic (9) Afib Current Visit: Yes Status: Chronic Assessment and Plan: Heart rate improved, 80s. Blood pressure low normal, off pressors. Continue to hold rate controlling medications as the patient continues to improve from his sepsis. (10) PAD (peripheral artery disease) Current Visit: Yes Status: Acute (11) Coronary artery disease Current Visit: Yes Status: Acute continue IV ATB start lasix patient declined SNF possible HHC in 1-2 days with oral ATB - Time Spent with Patient Total time spent is greater than 50% in coordination of care (as documented) at patient's floor/unit and/or counseling patient: 25 - 35 minutes Plan of Care Discussed with: patient Internal Medicine: Result - Labs CBC & Chem 7: 11/17/18 04:15 11/17/18 04:15 Labs: Short CBC 11/17/18 Range/Units 04:15 WBC 9.8 (4.3-11.1) K/mcL Hgb 9.6 L (12.9-16.9) g/dL Hct 30.5 L (37.5-50.1) % Plt Count 131 L (140-400) K/mcL Neutrophils # 8.0 (1.6-8.9) K/mcL BMP 11/17/18 04:15 Sodium 137 Potassium 3.7 Chloride 109 H Carbon Dioxide 21 L BUN 20 Creatinine 0.72 Glucose 151 H Calcium 8.0 L - ABG Interpretation ABG results: PT/INR, D-dimer PT 15.1 Seconds (9.4-12.1) H 11/14/18 12:42 Consult Discharge Plan - Plan Referrals: NONE,PCP [Primary Care Provider] -
[2018-11-18 05:42] LABS: Basophils % 0.4 %; Eosinophils # 0.2 K/mcL (0.0-0.6); Hematocrit 29.8 % (37.5-50.1); Hemoglobin 9.5 g/dL (12.9-16.9); Immature Granulocytes % 0.6 % (0-4); Lymphocytes # 0.7 K/mcL (0.6-4.6); Lymphocytes % 8.6 %; Mean Corpuscular HGB Conc 31.9 g/dL (31.6-35.5); Mean Corpuscular Hemoglobin 28.7 pg (28.0-33.3); Mean Platelet Volume 11.7 fL (9.4-12.4); Monocytes # 1.1 K/mcL (0.0-1.3); Neutrophils # 6.5 K/mcL (1.6-8.9); Platelet Count 154 K/mcL (140-400); Red Blood Count 3.31 M/mcL (4.19-5.50); Segmented Neutrophils % 75.4 %
[2018-11-18 06:02] LABS: BUN/Creatinine Ratio 22 (6-26); Blood Urea Nitrogen 15 mg/dL (8-23); Calcium 8.4 mg/dL (8.6-10.3); Carbon Dioxide 25 mEq/L (23-29); Chloride 107 mEq/L (98-107); Glucose 154 mg/dL (70-105); Magnesium 1.4 mg/dL (1.6-2.6); Osmolality,Calculated 288 (280-300); Potassium 3.4 mEq/L (3.5-5.1); Sodium 137 mEq/L (136-145); eGFR For Non-African Americans > 60 (> 60)
[2018-11-18] MEDS: *HR* Heparin 5,000 UNIT/ML VIAL SQ SCH ×2 (06:31→17:14)
[2018-11-18] MEDS: Piperacillin/Tazobactam 3.375 GM in 0.9 % Sodium Chloride Mini Bag 100 ML IVPB SCH ×2 (06:31→13:28)
[2018-11-18] MEDS: Insulin LISPRO 300 UNITS/3 ML VIAL SQ SCH ×4 (07:58→21:09)
[2018-11-18] MEDS: Isosorbide MONOnitrate (24 HR) 30 MG TAB.ER.24H PO SCH (09:59)
[2018-11-18] MEDS: Aspirin 81 MG TAB.CHEW PO SCH (09:59)
[2018-11-18] MEDS: Folic Acid 1 MG TABLET PO SCH (09:59)
[2018-11-18] MEDS: Furosemide 20 MG TABLET PO SCH (10:00)
[2018-11-18] MEDS: Metoprolol XL (24 HR) Succ 25 MG TAB.ER.24H PO SCH (10:00)
--- NOTE | 2018-11-18 14:07 | Internal Med Progress Note ---
Hospitalist Progress Note - Encounter Date of Encounter: 11/18/18 Time of Encounter: 16:32 - Subjective Interval History: Pt states his leg is feeling better each day. The swelling and redness are improving. No other complaints. Denies N/V, abd pain, SOB or cough, or chest pain. - Exam Vitals: Temp Pulse Resp BP Pulse Ox 98.3 F 89 17 151/86 98 11/18/18 11:21 11/18/18 11:21 11/18/18 11:21 11/18/18 11:21 11/18/18 11:21 Exam: CONSTITUTIONAL: patient appears as an age appropriate male in no acute distress. EYES Clear sclerae, bilateral pupils are equal, reactive to light. EOMI. RESPIRATORY: No accessory muscle use, bilateral clear to auscultation, no wheez ing, no crackles/rales. CARDIOVASCULAR: Regular heart rate, normal S1 and S2, no murmurs GASTROINTESTINAL: bowel sounds present, soft, no tenderness. MUSCULOSKELETAL: Joints in normal range of motion, left BKA, right leg edema 2+ with faint erythema to mid jauregui NEUROLOGIC: CN II to XII are grossly intact, no focal neurological deficit. - Summary of Assessment and Plan Summary of Assessment and Plan: Rob Stone is a 63 M w hx DM2, A-Fib, PAD, CAD, who p/w RLE rash, dirty UA, and diarrhea, along with hypotension concerning for cellulitis and septic shock. Cellulitis: nonpurulent, improving, septic shock resolved - stop vanc/zosyn - start keflex 500 qid Pyelonephritis: UCx negative, clinically improved, will monitor on PO keflex as above Diarrhea: resolved IBAN: resolved Hypokalemia: replace and monitor Hypomagnesemia: replace and monitor DM2: controlled, continue current SSI A-Fib: rate on toprol 25 daily PAD/CAD/HLD: home plavix, lipitor 40 PPx: hep sq FEN: regular, no MIVF Lines: PIV Consults: Code: Full Dispo: patient requires inpatient eval and management at this time. Anticipate 1-2 days. Will be homegoing. - Time Spent with Patient Total time spent is greater than 50% in coordination of care (as documented) at patient's floor/unit and/or counseling patient: 25 - 35 minutes Internal Medicine: Result - Labs CBC & Chem 7: 11/18/18 05:27 11/18/18 05:27 Labs: Short CBC 11/18/18 Range/Units 05:27 WBC 8.6 (4.3-11.1) K/mcL Hgb 9.5 L (12.9-16.9) g/dL Hct 29.8 L (37.5-50.1) % Plt Count 154 (140-400) K/mcL Neutrophils # 6.5 (1.6-8.9) K/mcL BMP 11/18/18 05:27 Sodium 137 Potassium 3.4 L Chloride 107 Carbon Dioxide 25 BUN 15 Creatinine 0.67 L Glucose 154 H Calcium 8.4 L - ABG Interpretation ABG results: PT/INR, D-dimer PT 15.1 Seconds (9.4-12.1) H 11/14/18 12:42 Consult Discharge Plan - Plan Referrals: NONE,PCP [Primary Care Provider] -
[2018-11-18] MEDS: cephALEXin 500 MG CAPSULE PO SCH ×2 (17:14→21:09)
[2018-11-19 06:49] LABS: Hematocrit 29.2 % (37.5-50.1); Hemoglobin 9.1 g/dL (12.9-16.9); Mean Corpuscular HGB Conc 31.2 g/dL (31.6-35.5); Mean Corpuscular Hemoglobin 28.7 pg (28.0-33.3); Mean Corpuscular Volume 92.1 fL (83.0-100.0); Mean Platelet Volume 11.5 fL (9.4-12.4); Platelet Count 169 K/mcL (140-400); Red Blood Count 3.17 M/mcL (4.19-5.50); Red Cell Distribution Width 17.1 % (11.5-14.5)
[2018-11-19] MEDS: *HR* Heparin 5,000 UNIT/ML VIAL SQ SCH (06:49)
[2018-11-19 08:48] LABS: BUN/Creatinine Ratio 18 (6-26); Blood Urea Nitrogen 12 mg/dL (8-23); Calcium 8.4 mg/dL (8.6-10.3); Carbon Dioxide 26 mEq/L (23-29); Chloride 109 mEq/L (98-107); Glucose 118 mg/dL (70-105); Magnesium 1.9 mg/dL (1.6-2.6); Osmolality,Calculated 289 (280-300); Potassium 3.9 mEq/L (3.5-5.1); Sodium 139 mEq/L (136-145); eGFR For Non-African Americans > 60 (> 60)
[2018-11-19] MEDS: cephALEXin 500 MG CAPSULE PO SCH ×2 (09:40→17:04)
[2018-11-19] MEDS: Metoprolol XL (24 HR) Succ 25 MG TAB.ER.24H PO SCH (09:40)
[2018-11-19] MEDS: Aspirin 81 MG TAB.CHEW PO SCH (09:41)
[2018-11-19] MEDS: Isosorbide MONOnitrate (24 HR) 30 MG TAB.ER.24H PO SCH (09:41)
[2018-11-19] MEDS: Folic Acid 1 MG TABLET PO SCH (09:41)
[2018-11-19] MEDS: Insulin LISPRO 300 UNITS/3 ML VIAL SQ SCH ×2 (09:41→12:23)
[2018-11-19] MEDS: Furosemide 20 MG TABLET PO SCH (09:41)
[2018-11-19 12:07] VITALS: BP 143/100
--- NOTE | 2018-11-19 14:39 | Discharge Summary ---
- NOTES TO OUTPATIENT PROVIDER Notes to Outpatient Provider: Follow up LLE cellulitis, also Left lung opacities need repeat CT 3 months Date of Encounter: 11/19/18 Time of Encounter: 14:39 Hospital course: Dear Doctors, I recently had the opportunity to care for this patient during their hospital stay at [facility]. Rob Stone is a 63 M w hx DM2, A-Fib not on AC, PAD, CAD, who p/w RLE rash, dirty UA, and diarrhea, along with hypotension concerning for cellulitis and septic shock. He was given fluids and started on pressors and admitted to ICU. Initial search for site of infection included CT abd/pelvis, which actually suggested bladder wall thickening and mild perinephric fat stranding suggestive of UTI/pyelo, however urine culture was negative. Also, the CT showed up to 3 cm opacities in left lung lower lobe possibly infectious as well, and recommended 3 month follow up imaging. The patient improved with broad spectrum antibiotics. Rash receded and patient was de-escalated to PO keflex with continued improvement. 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 Please contact me with any questions or concerns regarding their hospital stay. Sincerely, Talha Hightower - Time Spent with Patient Total time spent providing and/or coordinating discharge services: Greater than 30 minutes - Discharge Medications Prescriptions: Aspirin 81 mg PO DAILY #30 tab.chew cephALEXin [Keflex] 500 mg PO QID #24 capsule Home Medications: Atorvastatin [Lipitor] 40 mg PO DAILY 06/10/18 [History] Clopidogrel [Plavix] 75 mg PO DAILY 06/10/18 [History] Folic Acid 1 mg PO DAILY 06/10/18 [History] Isosorbide MONOnitrate (24 HR) [Imdur] 30 mg PO DAILY 06/10/18 [History] Metoprolol Succinate [Toprol Xl] 25 mg PO DAILY 06/10/18 [History] Multivit,Th Iron,Other Min [Therems-M] 1 tab PO DAILY 06/10/18 [History] Potassium Chloride [K-Tab ER] 20 meq PO DAILY 06/10/18 [History] metFORMIN [Glucophage] 500 mg PO BIDWM 06/10/18 [History] Furosemide [Lasix] 60 mg PO DAILY 11/15/18 [History] Omeprazole [PriLOSEC] 20 mg PO DAILY PRN 11/15/18 [History] Psyllium [Metamucil Fiber Singles Packet] 1 packet PO DAILY 11/15/18 [History] Aspirin 81 mg PO DAILY #30 tab.chew 11/19/18 [Rx] cephALEXin [Keflex] 500 mg PO QID #24 capsule 11/19/18 [Rx] Allergies/Adverse Reactions: Allergy/AdvReac Type Severity Reaction Status Date / Time No Known Allergies Allergy Verified 11/15/18 15:28 Date of admission: 11/14/18 16:31 Primary care physician: PCP NONE Consults: 11/16/18 11:15 Consult to Occupational Therapy [CONS] Routine Comment: Evaluate, develop and implement POC Reason for Consult: Weakness Does patient have active BEDREST order?: No Is patient medically & hemodynamically stable?: Yes Consult to Physical Therapy [CONS] Routine Comment: Evaluate, develop and implement POC Reason for Consult: Weakness Does patient have active BEDREST order?: No Is patient medically & hemodynamically stable?: Yes - Constitutional Vitals: Temp Pulse Resp BP Pulse Ox 97.6 F 97 16 143/100 97 11/19/18 12:06 11/19/18 12:06 11/19/18 12:06 11/19/18 12:06 11/19/18 12:06 General appearance: Present: A&O X 1 Exam: CONSTITUTIONAL: patient appears as an age appropriate male in no acute distress. EYES Clear sclerae, bilateral pupils are equal, reactive to light. EOMI. RESPIRATORY: No accessory muscle use, bilateral clear to auscultation, no wheezing, no crackles/rales. CARDIOVASCULAR: Regular heart rate, normal S1 and S2, no murmurs GASTROINTESTINAL: bowel sounds present, soft, no tenderness. MUSCULOSKELETAL: Joints in normal range of motion, left BKA, right leg edema 1+ with minimal erythema and no warmth or tenderness, does have significant superficial skin sloughing (dryness) NEUROLOGIC: CN II to XII are grossly intact, no focal neurological deficit. - Patient Status Disposition: Home Health Service Condition: Fair Functional capacity at discharge: independent ambulation (with left leg prosthesis) Overall status at discharge: patient is progressing back to baseline - Discharge Instructions Instructions: Cephalexin (By mouth), Aspirin (By mouth), Atrial Fibrillation (DC), Urinary Tract Infection in Men (DC), Cellulitis (DC), Diabetes Mellitus Type 2 in Adults (DC), Peripheral Vascular Disorders (DC), Chronic Hypertension (DC) Follow Up With: Herbert Sargent MD [Non-Partnered Physician] - 11/24/18 9:30 am Forms: ED Satisfaction Letter, Work/School Release - Diet and Activity Activity: increase activity as tolerated Diet: advance to your usual diet
--- NOTE | 2018-11-19 14:51 | Physician Discharge Referral ---
Home Health/Hosp Referral Info Transfer to: Home Health Provider in Charge Post Discharge: PCP - Diagnosis (1) Cellulitis Priority: Primary Status: Acute (2) Septic shock Priority: Secondary Status: Resolved - Respiratory Orders Smoking Cessation: Smoking cessation has been advised. For more information, call the [place] Tobacco Quit Line at 4-803-RXNV-NOW. - Services Needed Following services are medically necessary services: Nursing, Home Health Aide, Physical Therapy, Occupational Therapy - Transfer Medications Prescriptions: Aspirin 81 mg PO DAILY #30 tab.chew cephALEXin [Keflex] 500 mg PO QID #24 capsule Home Medications: Atorvastatin [Lipitor] 40 mg PO DAILY 06/10/18 [History] Clopidogrel [Plavix] 75 mg PO DAILY 06/10/18 [History] Folic Acid 1 mg PO DAILY 06/10/18 [History] Isosorbide MONOnitrate (24 HR) [Imdur] 30 mg PO DAILY 06/10/18 [History] Metoprolol Succinate [Toprol Xl] 25 mg PO DAILY 06/10/18 [History] Multivit,Th Iron,Other Min [Therems-M] 1 tab PO DAILY 06/10/18 [History] Potassium Chloride [K-Tab ER] 20 meq PO DAILY 06/10/18 [History] metFORMIN [Glucophage] 500 mg PO BIDWM 06/10/18 [History] Furosemide [Lasix] 60 mg PO DAILY 11/15/18 [History] Omeprazole [PriLOSEC] 20 mg PO DAILY PRN 11/15/18 [History] Psyllium [Metamucil Fiber Singles Packet] 1 packet PO DAILY 11/15/18 [History] Aspirin 81 mg PO DAILY #30 tab.chew 11/19/18 [Rx] cephALEXin [Keflex] 500 mg PO QID #24 capsule 11/19/18 [Rx] Allergies/Adverse Reactions: Allergy/AdvReac Type Severity Reaction Status Date / Time No Known Allergies Allergy Verified 11/15/18 15:28 Certification: Further, I certify that my clinical findings support that this patient is homebound (i.e. absences from home require considerable and taxing effort and are for medical reasons or synagogue services or infrequently or short duration when for other reasons) because: Homebound Reason: Patient requires assistance of a person or device to safely leave home Attestation: My signature below is to certify that this patient is under my care and that I, or nurse practitioner, or a physician's esol teacher assistant working with me, has a fa ce-to-face encounter with this patient.
== END 2018-11-19 17:44 | disposition home health service (06) | DRG 871 ==
LOC: EMEROOARM 12:22 → SUATTDRO 16:31 → ICNU 16:31 → 2NENU 11-15 18:10
PROVIDERS: ADMIT Internal Medicine; ATTEND Internal Medicine

== ENCOUNTER 2019-12-27 18:16 | Inpatient (IN) ==
[2019-12-27 19:18] LABS: INR 1.3; Prothrombin Time 14.8 Seconds (9.4-12.1)
[2019-12-27 19:21] LABS: Activated Partial Thrombo Time 33.5 Seconds (26.0-36.0)
[2019-12-27 19:28] LABS: Basophils % 0.2 %; Hemoglobin 14.1 g/dL (12.9-16.9); Immature Granulocytes % 0.4 % (0-4); Lymphocytes # 0.4 K/mcL (0.6-4.6); Lymphocytes % 6.8 %; Mean Corpuscular HGB Conc 33.6 g/dL (31.6-35.5); Mean Corpuscular Hemoglobin 30.9 pg (28.0-33.3); Mean Corpuscular Volume 91.9 fL (83.0-100.0); Mean Platelet Volume 10.6 fL (9.4-12.4); Neutrophils # 4.2 K/mcL (1.6-8.9); Platelet Count 145 K/mcL (140-400); Red Blood Count 4.57 M/mcL (4.19-5.50); Red Cell Distribution Width 13.2 % (11.5-14.5); Segmented Neutrophils % 74.6 %; White Blood Count 5.6 K/mcL (4.3-11.1)
[2019-12-27 19:39] LABS: Alanine Aminotransferase 22 Units/L (7-52); Albumin 3.8 g/dL (3.5-5.7); Albumin/Globulin Ratio 1.3 (1.1-2.2); Alkaline Phosphatase 118 Units/L (34-104); Aspartate Amino Transferase 26 Units/L (13-39); BUN/Creatinine Ratio 13 (6-26); Bilirubin,Direct 0.4 mg/dL (0.0-0.2); Bilirubin,Total 1.4 mg/dL (0.3-1.0); Blood Urea Nitrogen 11 mg/dL (8-23); Carbon Dioxide 28 mEq/L (23-29); Chloride 103 mEq/L (98-107); Globulin 2.9 g/dL (2.4-3.5); Glucose 96 mg/dL (70-105); Magnesium 1.6 mg/dL (1.6-2.6); Osmolality,Calculated 289 (280-300); Sodium 140 mEq/L (136-145); Total Protein 6.7 g/dL (6.4-8.9); Troponin I < 0.03 ng/mL (< 0.04); eGFR For African Americans > 60 (> 60); eGFR For Non-African Americans > 60 (> 60)
[2019-12-27] MEDS ORDERED: Potassium Effervescent 25 MEQ TABLET.EFF PO ONE (20:07)
[2019-12-27] MEDS ORDERED: Naloxone 0.4 MG/ML INJ IVP PRN (22:27)
[2019-12-27] MEDS ORDERED: Ipratropium/Albuterol Neb 3 ML IH PRN (22:29)
[2019-12-27] MEDS ORDERED: Dextrose Gel 15 GM/37.5 ML TUBE PO PRN ×2 (22:46)
[2019-12-27] MEDS ORDERED: *HR* Dextrose 50 % in Water (Syg) 50 ML SYRINGE IVP PRN (22:46)
[2019-12-27] MEDS ORDERED: D5% in Water 1,000 ML IVC PRN (22:46)
[2019-12-27 23:07] LABS: Estimated Average Glucose 143 mg/dl
[2019-12-27] MEDS: Insulin LISPRO 300 UNITS/3 ML VIAL SQ SCH (23:26)
[2019-12-27] MEDS: Acetaminophen 325 MG TABLET PO PRN (23:37)
[2019-12-27] MEDS: 0.9 % Sodium Chloride 1,000 ML IVC SCH (23:38)
[2019-12-28 02:56] LABS: INR 1.3
[2019-12-28 02:59] LABS: Basophils % 0.2 %; Hemoglobin 13.3 g/dL (12.9-16.9); Lymphocytes % 5.8 %; Red Cell Distribution Width 13.2 % (11.5-14.5)
[2019-12-28 03:01] LABS: Hematocrit 40.7 % (37.5-50.1); Immature Granulocytes % 0.3 % (0-4); Immature Platelets 3.3 % (1.1-6.1); Lymphocytes # 0.4 K/mcL (0.6-4.6); Mean Corpuscular HGB Conc 32.7 g/dL (31.6-35.5); Mean Corpuscular Hemoglobin 30.4 pg (28.0-33.3); Mean Corpuscular Volume 92.9 fL (83.0-100.0); Mean Platelet Volume 11.1 fL (9.4-12.4); Monocytes # 1.1 K/mcL (0.0-1.3); Monocytes % 16.5 %; Neutrophils # 5.1 K/mcL (1.6-8.9); Platelet Count 125 K/mcL (140-400); Red Blood Count 4.38 M/mcL (4.19-5.50); Segmented Neutrophils % 77.2 %; White Blood Count 6.6 K/mcL (4.3-11.1)
[2019-12-28 03:06] LABS: BUN/Creatinine Ratio 16 (6-26); Blood Urea Nitrogen 12 mg/dL (8-23); Calcium 8.6 mg/dL (8.6-10.3); Carbon Dioxide 26 mEq/L (23-29); Chloride 103 mEq/L (98-107); Glucose 95 mg/dL (70-105); Magnesium 1.6 mg/dL (1.6-2.6); Osmolality,Calculated 288 (280-300); Phosphorous 2.5 mg/dL (2.7-4.5); Potassium 2.9 mEq/L (3.5-5.1); Sodium 139 mEq/L (136-145); eGFR For African Americans > 60 (> 60); eGFR For Non-African Americans > 60 (> 60)
[2019-12-28] MEDS ORDERED: Acetaminophen IV 1,000 MG/100 ML INFUS..BTL IVPB SCH (06:00)
[2019-12-28] MEDS ORDERED: *HR* Heparin 5,000 UNIT/ML VIAL SQ SCH (06:00)
[2019-12-28] MEDS: 0.9 % Sodium Chloride 1,000 ML IVC SCH ×2 (06:42→16:58)
[2019-12-28 07:09] LABS: Adenovirus Not Detected (Not Detect); Bordetella Pertussis Not Detected (Not Detect); Coronavirus 229E Not Detected (Not Detect); Coronavirus HKU1 Not Detected (Not Detect); Coronavirus NL63 Not Detected (Not Detect); Coronavirus OC43 Not Detected (Not Detect); Human Metapneumovirus Not Detected (Not Detect); Human Rhinovirus/Enterovirus Not Detected (Not Detect); Influenza B Not Detected (Not Detect); Parainfluenza Virus 1 Not Detected (Not Detect); Parainfluenza Virus 2 Not Detected (Not Detect); Parainfluenza Virus 3 Not Detected (Not Detect); Parainfluenza Virus 4 Not Detected (Not Detect); Respiratory Syncytial Virus Not Detected (Not Detect)
[2019-12-28 07:10] LABS: Chlamydophila pneumoniae Not Detected (Not Detect); Mycoplasma pneumoniae Not Detected (Not Detect)
[2019-12-28 07:11] LABS: Influenza A Subtype 2009 H1 DETECTED (Not Detect)
[2019-12-28] MEDS: Insulin LISPRO 300 UNITS/3 ML VIAL SQ SCH ×4 (08:57→22:31)
[2019-12-28] MEDS: Piperacillin/Tazobactam 3.375 GM in 0.9 % Sodium Chloride Mini Bag 100 ML IVPB SCH ×2 (08:59→16:57)
[2019-12-28] MEDS: Acetaminophen 325 MG TABLET PO PRN ×2 (12:15→20:12)
[2019-12-28 19:38] LABS: Phosphorous 3.7 mg/dL (2.7-4.5); Potassium 4.2 mEq/L (3.5-5.1)
[2019-12-28] MEDS: Ondansetron 4 MG/2 ML VIAL IVP PRN (20:13)
[2019-12-28] MEDS ORDERED: Isovue-370 500 ML BOTTLE IVP ONE (21:39)
[2019-12-28] MEDS: Isosorbide MONOnitrate (24 HR) 30 MG TAB.ER.24H PO SCH (22:26)
[2019-12-29] MEDS: Piperacillin/Tazobactam 3.375 GM in 0.9 % Sodium Chloride Mini Bag 100 ML IVPB SCH ×4 (00:46→23:40)
[2019-12-29] MEDS: 0.9 % Sodium Chloride 1,000 ML IVC SCH ×2 (00:47→03:16)
[2019-12-29 04:00] LABS: Basophils % 0.1 %; Hemoglobin 12.6 g/dL (12.9-16.9); Red Cell Distribution Width 13.2 % (11.5-14.5); Segmented Neutrophils % 78.1 %
[2019-12-29 04:02] LABS: Eosinophils % 0.1 %; Hematocrit 39.1 % (37.5-50.1); Immature Granulocytes % 0.4 % (0-4); Immature Platelets 3.1 % (1.1-6.1); Lymphocytes % 10.2 %; Mean Corpuscular HGB Conc 32.2 g/dL (31.6-35.5); Mean Corpuscular Hemoglobin 30.1 pg (28.0-33.3); Mean Corpuscular Volume 93.3 fL (83.0-100.0); Mean Platelet Volume 10.9 fL (9.4-12.4); Monocytes # 1.1 K/mcL (0.0-1.3); Monocytes % 11.1 %; Neutrophils # 7.4 K/mcL (1.6-8.9); Platelet Count 134 K/mcL (140-400); Red Blood Count 4.19 M/mcL (4.19-5.50); White Blood Count 9.5 K/mcL (4.3-11.1)
[2019-12-29 04:19] LABS: Platelet Estimate Normal (Normal)
[2019-12-29 04:22] LABS: BUN/Creatinine Ratio 17 (6-26); Blood Urea Nitrogen 14 mg/dL (8-23); Calcium 8.1 mg/dL (8.6-10.3); Carbon Dioxide 27 mEq/L (23-29); Chloride 104 mEq/L (98-107); Glucose 100 mg/dL (70-105); Osmolality,Calculated 289 (280-300); Sodium 139 mEq/L (136-145); eGFR For African Americans > 60 (> 60); eGFR For Non-African Americans > 60 (> 60)
[2019-12-29] MEDS: Acetaminophen 325 MG TABLET PO PRN ×4 (04:30→23:40)
[2019-12-29] MEDS: Metoprolol XL (24 HR) Succ 25 MG TAB.ER.24H PO SCH (08:06)
[2019-12-29] MEDS: Folic Acid 1 MG TABLET PO SCH (08:07)
[2019-12-29] MEDS: Insulin LISPRO 300 UNITS/3 ML VIAL SQ SCH ×4 (08:08→21:29)
[2019-12-29] MEDS: Ondansetron 4 MG/2 ML VIAL IVP PRN (08:17)
[2019-12-29] MEDS ORDERED: 0.9 % Sodium Chloride 1,000 ML IVC SCH (12:58)
[2019-12-29] MEDS: Ipratropium/Albuterol Neb 3 ML IH SCH ×3 (15:49→23:37)
[2019-12-29] MEDS: Isosorbide MONOnitrate (24 HR) 30 MG TAB.ER.24H PO SCH (17:45)
[2019-12-30] MEDS: Ipratropium/Albuterol Neb 3 ML IH SCH ×6 (03:08→23:47)
[2019-12-30 05:48] LABS: Basophils % 0.4 %; Eosinophils % 0.2 %; Hematocrit 34.8 % (37.5-50.1); Hemoglobin 11.3 g/dL (12.9-16.9); Immature Granulocytes % 0.4 % (0-4); Lymphocytes # 0.7 K/mcL (0.6-4.6); Mean Corpuscular HGB Conc 32.5 g/dL (31.6-35.5); Mean Corpuscular Hemoglobin 30.5 pg (28.0-33.3); Mean Corpuscular Volume 94.1 fL (83.0-100.0); Mean Platelet Volume 10.4 fL (9.4-12.4); Monocytes # 0.7 K/mcL (0.0-1.3); Monocytes % 12.8 %; Neutrophils # 3.8 K/mcL (1.6-8.9); Platelet Count 128 K/mcL (140-400); Red Cell Distribution Width 13.5 % (11.5-14.5); Segmented Neutrophils % 73.2 %; White Blood Count 5.2 K/mcL (4.3-11.1)
[2019-12-30 06:13] LABS: BUN/Creatinine Ratio 15 (6-26); Blood Urea Nitrogen 14 mg/dL (8-23); Carbon Dioxide 27 mEq/L (23-29); Chloride 105 mEq/L (98-107); Glucose 115 mg/dL (70-105); Magnesium 1.8 mg/dL (1.6-2.6); Osmolality,Calculated 289 (280-300); Phosphorous 2.9 mg/dL (2.7-4.5); Potassium 2.8 mEq/L (3.5-5.1); Sodium 139 mEq/L (136-145); eGFR For African Americans > 60 (> 60); eGFR For Non-African Americans > 60 (> 60)
[2019-12-30] MEDS ORDERED: Methylnaltrexone 12 MG/0.6 ML SYRINGE SQ ONE (08:48)
[2019-12-30] MEDS ORDERED: Metoclopramide 10 MG/2 ML VIAL IVP SCH (09:15)
[2019-12-30] MEDS: Insulin LISPRO 300 UNITS/3 ML VIAL SQ SCH ×3 (09:18→16:35)
[2019-12-30] MEDS: Piperacillin/Tazobactam 3.375 GM in 0.9 % Sodium Chloride Mini Bag 100 ML IVPB SCH (09:21)
[2019-12-30] MEDS: Folic Acid 1 MG TABLET PO SCH (09:23)
[2019-12-30] MEDS: Metoprolol XL (24 HR) Succ 25 MG TAB.ER.24H PO SCH (09:25)
[2019-12-30] MEDS ORDERED: Furosemide 40 MG/4 ML VIAL IVP ONE ×2 (11:25)
[2019-12-30] MEDS: Metoclopramide 20 MG in 0.9 % Sodium Chloride 50 ML IVPB SCH ×2 (12:20→17:13)
[2019-12-30] MEDS: GuaiFENesin/Dextromethorphan TABLET PO SCH ×2 (15:53→20:52)
[2019-12-30 16:59] LABS: BUN/Creatinine Ratio 11 (6-26); Blood Urea Nitrogen 10 mg/dL (8-23); Calcium 7.9 mg/dL (8.6-10.3); Carbon Dioxide 29 mEq/L (23-29); Chloride 105 mEq/L (98-107); Glucose 143 mg/dL (70-105); Osmolality,Calculated 286 (280-300); Phosphorous 1.5 mg/dL (2.7-4.5); Potassium 3.4 mEq/L (3.5-5.1); Sodium 137 mEq/L (136-145); eGFR For African Americans > 60 (> 60); eGFR For Non-African Americans > 60 (> 60)
[2019-12-30] MEDS: Isosorbide MONOnitrate (24 HR) 30 MG TAB.ER.24H PO SCH (17:13)
[2019-12-31] MEDS: Insulin LISPRO 300 UNITS/3 ML VIAL SQ SCH ×5 (01:21→21:56)
[2019-12-31] MEDS: Metoclopramide 20 MG in 0.9 % Sodium Chloride 50 ML IVPB SCH ×2 (01:39→10:32)
[2019-12-31 02:39] LABS: Basophils % 0.2 %; Eosinophils % 0.2 %; Hematocrit 34.4 % (37.5-50.1); Hemoglobin 11.3 g/dL (12.9-16.9); Immature Granulocytes % 0.4 % (0-4); Lymphocytes # 0.6 K/mcL (0.6-4.6); Lymphocytes % 12.6 %; Mean Corpuscular HGB Conc 32.8 g/dL (31.6-35.5); Mean Corpuscular Hemoglobin 30.9 pg (28.0-33.3); Mean Platelet Volume 10.4 fL (9.4-12.4); Monocytes # 0.7 K/mcL (0.0-1.3); Monocytes % 13.4 %; Neutrophils # 3.7 K/mcL (1.6-8.9); Platelet Count 133 K/mcL (140-400); Red Blood Count 3.66 M/mcL (4.19-5.50); Red Cell Distribution Width 13.5 % (11.5-14.5); Segmented Neutrophils % 73.2 %; White Blood Count 5.1 K/mcL (4.3-11.1)
[2019-12-31 03:03] LABS: Magnesium 1.9 mg/dL (1.6-2.6); Phosphorous 1.9 mg/dL (2.7-4.5)
[2019-12-31 03:06] LABS: BUN/Creatinine Ratio 11 (6-26); Blood Urea Nitrogen 8 mg/dL (8-23); Calcium 7.9 mg/dL (8.6-10.3); Carbon Dioxide 27 mEq/L (23-29); Chloride 107 mEq/L (98-107); Glucose 120 mg/dL (70-105); Osmolality,Calculated 286 (280-300); Potassium 3.5 mEq/L (3.5-5.1); Sodium 138 mEq/L (136-145); eGFR For African Americans > 60 (> 60); eGFR For Non-African Americans > 60 (> 60)
[2019-12-31] MEDS: Ipratropium/Albuterol Neb 3 ML IH SCH ×5 (04:16→20:29)
[2019-12-31] MEDS ORDERED: Potassium Phosphate 44 MEQ in 0.9 % Sodium Chloride 250 ML IVPB ONE (08:23)
[2019-12-31] MEDS: Folic Acid 1 MG TABLET PO SCH (09:03)
[2019-12-31] MEDS: Metoprolol XL (24 HR) Succ 25 MG TAB.ER.24H PO SCH (09:03)
[2019-12-31] MEDS: GuaiFENesin/Dextromethorphan TABLET PO SCH ×2 (09:03→21:53)
[2019-12-31] MEDS: Acetaminophen 325 MG TABLET PO PRN (09:11)
[2019-12-31] MEDS ORDERED: MethylPREDNISolone 40 MG/ML VIAL IVP ONE (09:40)
[2019-12-31] MEDS ORDERED: Furosemide 40 MG/4 ML VIAL IVP ONE (14:27)
[2019-12-31] MEDS: Isosorbide MONOnitrate (24 HR) 30 MG TAB.ER.24H PO SCH (16:29)
[2019-12-31] MEDS: predniSONE 20 MG TABLET PO SCH (16:29)
[2020-01-01] MEDS: Ipratropium/Albuterol Neb 3 ML IH SCH ×7 (00:10→23:36)
[2020-01-01 03:53] LABS: Hematocrit 34.9 % (37.5-50.1); Hemoglobin 11.4 g/dL (12.9-16.9); Immature Granulocytes % 0.2 % (0-4); Lymphocytes % 9.1 %; Mean Corpuscular HGB Conc 32.7 g/dL (31.6-35.5); Mean Corpuscular Hemoglobin 29.9 pg (28.0-33.3); Mean Corpuscular Volume 91.6 fL (83.0-100.0); Mean Platelet Volume 10.3 fL (9.4-12.4); Monocytes # 0.5 K/mcL (0.0-1.3); Monocytes % 9.7 %; Platelet Count 149 K/mcL (140-400); Red Blood Count 3.81 M/mcL (4.19-5.50); Red Cell Distribution Width 13.5 % (11.5-14.5); White Blood Count 4.9 K/mcL (4.3-11.1)
[2020-01-01 03:58] LABS: Lymphocytes # 0.5 K/mcL (0.6-4.6)
[2020-01-01 04:22] LABS: BUN/Creatinine Ratio 14 (6-26); Blood Urea Nitrogen 9 mg/dL (8-23); Calcium 8.3 mg/dL (8.6-10.3); Carbon Dioxide 31 mEq/L (23-29); Chloride 103 mEq/L (98-107); Glucose 216 mg/dL (70-105); Osmolality,Calculated 293 (280-300); Potassium 3.6 mEq/L (3.5-5.1); Sodium 139 mEq/L (136-145); eGFR For African Americans > 60 (> 60); eGFR For Non-African Americans > 60 (> 60)
[2020-01-01 04:35] LABS: Platelet Estimate Normal (Normal)
[2020-01-01] MEDS: Insulin LISPRO 300 UNITS/3 ML VIAL SQ SCH ×4 (07:57→21:16)
[2020-01-01] MEDS: GuaiFENesin/Dextromethorphan TABLET PO SCH ×2 (07:59→21:16)
[2020-01-01] MEDS: Folic Acid 1 MG TABLET PO SCH (07:59)
[2020-01-01] MEDS: Metoprolol XL (24 HR) Succ 25 MG TAB.ER.24H PO SCH (10:00)
[2020-01-01] MEDS: predniSONE 20 MG TABLET PO SCH (10:00)
[2020-01-01] MEDS ORDERED: Potassium Phosphate 44 MEQ in 0.9 % Sodium Chloride 250 ML IVPB ONE (12:17)
[2020-01-01] MEDS ORDERED: Lidocaine -MPF 2% 2 ML VIAL ONE (13:12)
[2020-01-01] MEDS ORDERED: *HR* Propofol 200 MG/20 ML VIAL IVP ONE (15:02)
[2020-01-01] MEDS: *HR* Enoxaparin 40 MG/0.4 ML SYRINGE SQ SCH (16:09)
[2020-01-01] MEDS: Isosorbide MONOnitrate (24 HR) 30 MG TAB.ER.24H PO SCH (17:38)
[2020-01-02] MEDS: Ipratropium/Albuterol Neb 3 ML IH SCH ×5 (03:38→22:07)
[2020-01-02] MEDS: GuaiFENesin/Dextromethorphan TABLET PO SCH ×2 (08:07→20:30)
[2020-01-02] MEDS: *HR* Enoxaparin 40 MG/0.4 ML SYRINGE SQ SCH (08:08)
[2020-01-02] MEDS: Metoprolol XL (24 HR) Succ 25 MG TAB.ER.24H PO SCH (08:08)
[2020-01-02] MEDS: Folic Acid 1 MG TABLET PO SCH (08:08)
[2020-01-02] MEDS: Acetaminophen 325 MG TABLET PO PRN (08:08)
[2020-01-02] MEDS: predniSONE 20 MG TABLET PO SCH (08:08)
[2020-01-02] MEDS: Insulin LISPRO 300 UNITS/3 ML VIAL SQ SCH ×4 (08:15→22:03)
[2020-01-02] MEDS ORDERED: Metoprolol XL (24 HR) Succ 25 MG TAB.ER.24H PO SCH (09:00)
[2020-01-02] MEDS ORDERED: Metoprolol XL (24 HR) Succ 25 MG TAB.ER.24H PO ONE (09:54)
[2020-01-02 09:59] LABS: BUN/Creatinine Ratio 14 (6-26); Blood Urea Nitrogen 9 mg/dL (8-23); Calcium 8.6 mg/dL (8.6-10.3); Carbon Dioxide 31 mEq/L (23-29); Chloride 101 mEq/L (98-107); Glucose 146 mg/dL (70-105); Osmolality,Calculated 287 (280-300); Potassium 3.3 mEq/L (3.5-5.1); Sodium 138 mEq/L (136-145); eGFR For African Americans > 60 (> 60); eGFR For Non-African Americans > 60 (> 60)
[2020-01-02] MEDS ORDERED: Potassium Phosphate 44 MEQ in 0.9 % Sodium Chloride 250 ML IVPB ONE (11:02)
[2020-01-02] MEDS: QUEtiapine Fumarate 25 MG TABLET PO SCH ×2 (12:10→20:30)
[2020-01-02] MEDS: cefTRIAXone 1,000 MG in 0.9 % Sodium Chloride Mini Bag 100 ML IVPB SCH (12:15)
[2020-01-02] MEDS: Furosemide 40 MG/4 ML VIAL IVP SCH (12:16)
[2020-01-02 15:08] LABS: Bilirubin,Urine Negative (Negative); Blood,Urine Trace (Negative); Clarity,Urine Clear (Clear); Color,Urine Yellow (Yellow); Glucose,Urine (UA) Normal (Normal); Ketones,Urine Negative (Negative); Leukocyte Esterase,Urine Negative (Negative); Nitrite,Urine Negative (Negative); Protein,Urine Negative (Neg-Trace); Urobilinogen,Urine Normal (Normal)
[2020-01-02 15:10] LABS: Bacteria,Urine None Seen per hpf (None-Few); Hyaline Casts,Urine None Seen per lpf (None-Few); RBC,Urine 0-3 per hpf (0-3); Squamous Epithelial Cell,Urine Moderate per lpf (None-Few); WBC,Urine 0-3 per hpf (0-3)
[2020-01-02] MEDS: Isosorbide MONOnitrate (24 HR) 30 MG TAB.ER.24H PO SCH (17:55)
[2020-01-02 17:56] LABS: BUN/Creatinine Ratio 15 (6-26); Blood Urea Nitrogen 11 mg/dL (8-23); Calcium 8.6 mg/dL (8.6-10.3); Carbon Dioxide 30 mEq/L (23-29); Chloride 102 mEq/L (98-107); Glucose 194 mg/dL (70-105); Osmolality,Calculated 293 (280-300); Phosphorous 2.8 mg/dL (2.7-4.5); Potassium 3.7 mEq/L (3.5-5.1); Sodium 139 mEq/L (136-145); eGFR For African Americans > 60 (> 60); eGFR For Non-African Americans > 60 (> 60)
[2020-01-02] MEDS: Ondansetron 4 MG/2 ML VIAL IVP PRN (22:55)
[2020-01-03] MEDS: Acetaminophen 325 MG TABLET PO PRN ×3 (02:26→21:23)
[2020-01-03] MEDS: Ipratropium/Albuterol Neb 3 ML IH SCH ×4 (03:10→22:06)
[2020-01-03 05:22] LABS: Hematocrit 35.3 % (37.5-50.1); Hemoglobin 11.5 g/dL (12.9-16.9); Mean Corpuscular HGB Conc 32.6 g/dL (31.6-35.5); Mean Corpuscular Hemoglobin 30.6 pg (28.0-33.3); Mean Corpuscular Volume 93.9 fL (83.0-100.0); Mean Platelet Volume 10.5 fL (9.4-12.4); Platelet Count 189 K/mcL (140-400); Red Blood Count 3.76 M/mcL (4.19-5.50); Red Cell Distribution Width 13.4 % (11.5-14.5); White Blood Count 6.5 K/mcL (4.3-11.1)
[2020-01-03 05:26] LABS: INR 1.2; Prothrombin Time 13.3 Seconds (9.4-12.1)
[2020-01-03 05:44] LABS: Alanine Aminotransferase 34 Units/L (7-52); Albumin 3.2 g/dL (3.5-5.7); Albumin/Globulin Ratio 1.1 (1.1-2.2); Alkaline Phosphatase 75 Units/L (34-104); Aspartate Amino Transferase 30 Units/L (13-39); BUN/Creatinine Ratio 16 (6-26); Bilirubin,Direct 0.4 mg/dL (0.0-0.2); Bilirubin,Indirect 0.9 mg/dL (0.0-1.0); Bilirubin,Total 1.3 mg/dL (0.3-1.0); Blood Urea Nitrogen 13 mg/dL (8-23); Calcium 8.4 mg/dL (8.6-10.3); Carbon Dioxide 33 mEq/L (23-29); Chloride 101 mEq/L (98-107); Globulin 2.8 g/dL (2.4-3.5); Glucose 153 mg/dL (70-105); Magnesium 1.9 mg/dL (1.6-2.6); Osmolality,Calculated 291 (280-300); Potassium 3.3 mEq/L (3.5-5.1); Sodium 139 mEq/L (136-145); eGFR For African Americans > 60 (> 60); eGFR For Non-African Americans > 60 (> 60)
[2020-01-03] MEDS: Insulin LISPRO 300 UNITS/3 ML VIAL SQ SCH ×4 (08:26→21:22)
[2020-01-03] MEDS: *HR* Enoxaparin 40 MG/0.4 ML SYRINGE SQ SCH (08:28)
[2020-01-03] MEDS: GuaiFENesin/Dextromethorphan TABLET PO SCH ×2 (08:28→21:23)
[2020-01-03] MEDS: Metoprolol XL (24 HR) Succ 25 MG TAB.ER.24H PO SCH (08:28)
[2020-01-03] MEDS: Furosemide 40 MG/4 ML VIAL IVP SCH (08:28)
[2020-01-03] MEDS: Folic Acid 1 MG TABLET PO SCH (08:28)
[2020-01-03] MEDS: cefTRIAXone 1,000 MG in 0.9 % Sodium Chloride Mini Bag 100 ML IVPB SCH (08:29)
[2020-01-03 11:26] LABS: VBG HCO3 36 mEq/L (21-27); VBG PCO2 56 mmHg (41-51); VBG PH 7.41 pH Units (7.32-7.42); VBG PO2 50 mmHg (25-50)
[2020-01-03] MEDS: Simethicone 80 MG TAB.CHEW PO SCH ×3 (14:23→21:20)
[2020-01-03] MEDS ORDERED: Simethicone 80 MG TAB.CHEW PO SCH (15:00)
[2020-01-03] MEDS: Isosorbide MONOnitrate (24 HR) 30 MG TAB.ER.24H PO SCH (17:32)
[2020-01-03] MEDS: QUEtiapine Fumarate 25 MG TABLET PO SCH (21:23)
[2020-01-04] MEDS: Ipratropium/Albuterol Neb 3 ML IH SCH ×4 (03:37→22:15)
[2020-01-04 06:41] LABS: Basophils % 0.5 %; Eosinophils # 0.1 K/mcL (0.0-0.6); Eosinophils % 1.1 %; Hematocrit 34.5 % (37.5-50.1); Hemoglobin 11.1 g/dL (12.9-16.9); Immature Granulocytes % 0.9 % (0-4); Lymphocytes # 1.3 K/mcL (0.6-4.6); Lymphocytes % 22.9 %; Mean Corpuscular HGB Conc 32.2 g/dL (31.6-35.5); Mean Corpuscular Hemoglobin 30.2 pg (28.0-33.3); Mean Platelet Volume 10.6 fL (9.4-12.4); Monocytes # 0.8 K/mcL (0.0-1.3); Monocytes % 13.7 %; Neutrophils # 3.5 K/mcL (1.6-8.9); Platelet Count 206 K/mcL (140-400); Red Blood Count 3.67 M/mcL (4.19-5.50); Red Cell Distribution Width 13.6 % (11.5-14.5); Segmented Neutrophils % 60.9 %; White Blood Count 5.7 K/mcL (4.3-11.1)
[2020-01-04 07:02] LABS: BUN/Creatinine Ratio 19 (6-26); Blood Urea Nitrogen 18 mg/dL (8-23); Calcium 8.2 mg/dL (8.6-10.3); Carbon Dioxide 32 mEq/L (23-29); Chloride 102 mEq/L (98-107); Glucose 115 mg/dL (70-105); Osmolality,Calculated 293 (280-300); Potassium 3.4 mEq/L (3.5-5.1); Sodium 140 mEq/L (136-145); eGFR For African Americans > 60 (> 60); eGFR For Non-African Americans > 60 (> 60)
[2020-01-04] MEDS: Insulin LISPRO 300 UNITS/3 ML VIAL SQ SCH ×4 (09:22→22:26)
[2020-01-04] MEDS: *HR* Enoxaparin 40 MG/0.4 ML SYRINGE SQ SCH (09:29)
[2020-01-04] MEDS: Simethicone 80 MG TAB.CHEW PO SCH ×4 (09:29→20:04)
[2020-01-04] MEDS: cefTRIAXone 1,000 MG in 0.9 % Sodium Chloride Mini Bag 100 ML IVPB SCH (09:30)
[2020-01-04] MEDS: Folic Acid 1 MG TABLET PO SCH (09:30)
[2020-01-04] MEDS: Metoprolol XL (24 HR) Succ 25 MG TAB.ER.24H PO SCH (09:30)
[2020-01-04] MEDS: GuaiFENesin/Dextromethorphan TABLET PO SCH ×2 (09:30→20:05)
[2020-01-04] MEDS: Furosemide 40 MG/4 ML VIAL IVP SCH (09:31)
[2020-01-04 15:36] LABS: Bilirubin,Urine Negative (Negative); Blood,Urine Moderate (Negative); Clarity,Urine Clear (Clear); Color,Urine Yellow (Yellow); Glucose,Urine (UA) Normal (Normal); Ketones,Urine Negative (Negative); Leukocyte Esterase,Urine Negative (Negative); Nitrite,Urine Negative (Negative); Protein,Urine Trace mg/dL (Neg-Trace); Specific Gravity,Urine 1.019 (1.010-1.025); Urobilinogen,Urine Normal (Normal)
[2020-01-04 15:38] LABS: Bacteria,Urine None Seen per hpf (None-Few); Hyaline Casts,Urine None Seen per lpf (None-Few); RBC,Urine 15-30 per hpf (0-3); Squamous Epithelial Cell,Urine Moderate per lpf (None-Few); WBC,Urine 0-3 per hpf (0-3)
[2020-01-04] MEDS: Isosorbide MONOnitrate (24 HR) 30 MG TAB.ER.24H PO SCH (17:24)
[2020-01-04] MEDS: QUEtiapine Fumarate 25 MG TABLET PO SCH (20:05)
[2020-01-04] MEDS: Acetaminophen 325 MG TABLET PO PRN (20:06)
[2020-01-05] MEDS: Ipratropium/Albuterol Neb 3 ML IH SCH ×2 (04:08→09:59)
[2020-01-05 06:35] LABS: Basophils % 0.3 %; Eosinophils # 0.1 K/mcL (0.0-0.6); Eosinophils % 1.7 %; Hematocrit 39.2 % (37.5-50.1); Hemoglobin 12.4 g/dL (12.9-16.9); Immature Granulocytes % 1.3 % (0-4); Lymphocytes # 1.2 K/mcL (0.6-4.6); Lymphocytes % 20.6 %; Mean Corpuscular HGB Conc 31.6 g/dL (31.6-35.5); Mean Corpuscular Hemoglobin 29.7 pg (28.0-33.3); Mean Corpuscular Volume 93.8 fL (83.0-100.0); Mean Platelet Volume 10.7 fL (9.4-12.4); Monocytes # 0.7 K/mcL (0.0-1.3); Monocytes % 11.8 %; Neutrophils # 3.9 K/mcL (1.6-8.9); Platelet Count 265 K/mcL (140-400); Red Blood Count 4.18 M/mcL (4.19-5.50); Red Cell Distribution Width 13.3 % (11.5-14.5); Segmented Neutrophils % 64.3 %
[2020-01-05 06:47] LABS: BUN/Creatinine Ratio 18 (6-26); Blood Urea Nitrogen 16 mg/dL (8-23); Calcium 8.8 mg/dL (8.6-10.3); Carbon Dioxide 30 mEq/L (23-29); Chloride 101 mEq/L (98-107); Glucose 139 mg/dL (70-105); Osmolality,Calculated 289 (280-300); Sodium 138 mEq/L (136-145); eGFR For African Americans > 60 (> 60); eGFR For Non-African Americans > 60 (> 60)
[2020-01-05 08:05] LABS: Magnesium 1.9 mg/dL (1.6-2.6)
[2020-01-05] MEDS: Insulin LISPRO 300 UNITS/3 ML VIAL SQ SCH ×4 (09:27→21:33)
[2020-01-05] MEDS: *HR* Enoxaparin 40 MG/0.4 ML SYRINGE SQ SCH (09:27)
[2020-01-05] MEDS: Furosemide 40 MG TABLET PO SCH (09:28)
[2020-01-05] MEDS: Metoprolol XL (24 HR) Succ 25 MG TAB.ER.24H PO SCH (09:28)
[2020-01-05] MEDS: Folic Acid 1 MG TABLET PO SCH (09:28)
[2020-01-05] MEDS: GuaiFENesin/Dextromethorphan TABLET PO SCH ×2 (09:28→21:40)
[2020-01-05] MEDS: Simethicone 80 MG TAB.CHEW PO SCH ×4 (09:28→21:40)
[2020-01-05] MEDS: Isosorbide MONOnitrate (24 HR) 30 MG TAB.ER.24H PO SCH (17:00)
[2020-01-05] MEDS: Acetaminophen 325 MG TABLET PO PRN (21:40)
[2020-01-05] MEDS: QUEtiapine Fumarate 25 MG TABLET PO SCH (21:40)
[2020-01-06] MEDS: Acetaminophen 325 MG TABLET PO PRN (05:38)
[2020-01-06 06:14] LABS: Basophils % 0.6 %; Eosinophils # 0.1 K/mcL (0.0-0.6); Eosinophils % 1.5 %; Hematocrit 37.3 % (37.5-50.1); Hemoglobin 12.1 g/dL (12.9-16.9); Immature Granulocytes % 1.1 % (0-4); Lymphocytes # 1.5 K/mcL (0.6-4.6); Lymphocytes % 21.6 %; Mean Corpuscular HGB Conc 32.4 g/dL (31.6-35.5); Mean Corpuscular Hemoglobin 30.2 pg (28.0-33.3); Mean Platelet Volume 10.6 fL (9.4-12.4); Monocytes # 1.1 K/mcL (0.0-1.3); Monocytes % 14.7 %; Neutrophils # 4.3 K/mcL (1.6-8.9); Platelet Count 268 K/mcL (140-400); Red Blood Count 4.01 M/mcL (4.19-5.50); Red Cell Distribution Width 13.2 % (11.5-14.5); Segmented Neutrophils % 60.5 %; White Blood Count 7.1 K/mcL (4.3-11.1)
[2020-01-06 06:33] LABS: BUN/Creatinine Ratio 21 (6-26); Blood Urea Nitrogen 16 mg/dL (8-23); Calcium 8.7 mg/dL (8.6-10.3); Carbon Dioxide 27 mEq/L (23-29); Chloride 103 mEq/L (98-107); Glucose 136 mg/dL (70-105); Osmolality,Calculated 285 (280-300); Potassium 4.2 mEq/L (3.5-5.1); Sodium 136 mEq/L (136-145); eGFR For African Americans > 60 (> 60); eGFR For Non-African Americans > 60 (> 60)
[2020-01-06] MEDS: Insulin LISPRO 300 UNITS/3 ML VIAL SQ SCH ×4 (09:16→21:52)
[2020-01-06] MEDS: GuaiFENesin/Dextromethorphan TABLET PO SCH ×2 (09:38→21:48)
[2020-01-06] MEDS: Metoprolol XL (24 HR) Succ 25 MG TAB.ER.24H PO SCH (09:38)
[2020-01-06] MEDS: *HR* Enoxaparin 40 MG/0.4 ML SYRINGE SQ SCH (09:38)
[2020-01-06] MEDS: Simethicone 80 MG TAB.CHEW PO SCH ×4 (09:38→21:48)
[2020-01-06] MEDS: Folic Acid 1 MG TABLET PO SCH (09:39)
[2020-01-06] MEDS: Furosemide 40 MG TABLET PO SCH (09:39)
[2020-01-06] MEDS: Isosorbide MONOnitrate (24 HR) 30 MG TAB.ER.24H PO SCH (17:33)
[2020-01-06] MEDS: QUEtiapine Fumarate 25 MG TABLET PO SCH (21:48)
[2020-01-06] MEDS ORDERED: *HR* LORazepam 2 MG/ML VIAL IVP ONE (23:18)
[2020-01-06] MEDS ORDERED: *HR* LORazepam 0.5 MG TABLET PO ONE (23:30)
[2020-01-07 06:12] LABS: Basophils % 0.3 %; Eosinophils # 0.1 K/mcL (0.0-0.6); Eosinophils % 1.2 %; Hematocrit 39.6 % (37.5-50.1); Hemoglobin 12.9 g/dL (12.9-16.9); Immature Granulocytes % 1.1 % (0-4); Lymphocytes # 1.7 K/mcL (0.6-4.6); Lymphocytes % 16.8 %; Mean Corpuscular HGB Conc 32.6 g/dL (31.6-35.5); Mean Corpuscular Hemoglobin 29.8 pg (28.0-33.3); Mean Corpuscular Volume 91.5 fL (83.0-100.0); Mean Platelet Volume 10.3 fL (9.4-12.4); Monocytes # 1.1 K/mcL (0.0-1.3); Monocytes % 11.3 %; Neutrophils # 6.8 K/mcL (1.6-8.9); Platelet Count 300 K/mcL (140-400); Red Blood Count 4.33 M/mcL (4.19-5.50); Red Cell Distribution Width 13.2 % (11.5-14.5); Segmented Neutrophils % 69.3 %; White Blood Count 9.9 K/mcL (4.3-11.1)
[2020-01-07 06:29] LABS: BUN/Creatinine Ratio 19 (6-26); Blood Urea Nitrogen 15 mg/dL (8-23); Calcium 8.9 mg/dL (8.6-10.3); Carbon Dioxide 27 mEq/L (23-29); Chloride 101 mEq/L (98-107); Glucose 109 mg/dL (70-105); Osmolality,Calculated 283 (280-300); Potassium 3.8 mEq/L (3.5-5.1); Sodium 136 mEq/L (136-145); eGFR For African Americans > 60 (> 60); eGFR For Non-African Americans > 60 (> 60)
[2020-01-07] MEDS: Insulin LISPRO 300 UNITS/3 ML VIAL SQ SCH ×2 (09:12→11:48)
[2020-01-07] MEDS: GuaiFENesin/Dextromethorphan TABLET PO SCH (09:21)
[2020-01-07] MEDS: Furosemide 40 MG TABLET PO SCH (09:21)
[2020-01-07] MEDS: *HR* Enoxaparin 40 MG/0.4 ML SYRINGE SQ SCH (09:22)
[2020-01-07] MEDS: Simethicone 80 MG TAB.CHEW PO SCH ×2 (09:22→14:11)
[2020-01-07] MEDS: Metoprolol XL (24 HR) Succ 25 MG TAB.ER.24H PO SCH (09:23)
[2020-01-07] MEDS: Folic Acid 1 MG TABLET PO SCH (09:24)
[2020-01-07 10:13] VITALS: BP 133/81
== END 2020-01-07 15:40 | DRG 193 ==
LOC: EMEROOARM 18:16 → 3NENU 18:16 → SUATTDRO 22:06 → 3NENU 23:06 → SUATTDRO 12-28 20:42 → 3NENU 12-31 20:04 → 3ANU 01-01 14:11
PROVIDERS: ADMIT Internal Medicine; ATTEND Student in an Organized Health Care Education/Training Program

== ENCOUNTER 2021-01-15 10:32 | Inpatient (IN) ==
[2021-01-15 11:24] LABS: Basophils # 0.1 K/mcL (0.0-0.2); Basophils % 0.8 %; Eosinophils # 0.1 K/mcL (0.0-0.6); Eosinophils % 0.7 %; Hematocrit 45.4 % (37.5-50.1); Hemoglobin 14.8 g/dL (12.9-16.9); Immature Granulocytes % 0.4 % (0-4); Lymphocytes # 1.1 K/mcL (0.6-4.6); Lymphocytes % 10.9 %; Mean Corpuscular HGB Conc 32.6 g/dL (31.6-35.5); Mean Corpuscular Hemoglobin 31.7 pg (28.0-33.3); Mean Corpuscular Volume 97.2 fL (83.0-100.0); Mean Platelet Volume 11.4 fL (9.4-12.4); Monocytes % 9.7 %; Neutrophils # 8.1 K/mcL (1.6-8.9); Platelet Count 204 K/mcL (140-400); Red Blood Count 4.67 M/mcL (4.19-5.50); Segmented Neutrophils % 77.5 %; White Blood Count 10.5 K/mcL (4.3-11.1)
[2021-01-15 11:50] LABS: BUN/Creatinine Ratio 13 (6-26); Blood Urea Nitrogen 10 mg/dL (8-23); Calcium 9.2 mg/dL (8.6-10.3); Carbon Dioxide 28 mEq/L (23-29); Chloride 106 mEq/L (98-107); Glucose 112 mg/dL (70-105); Osmolality,Calculated 290 (280-300); Sodium 140 mEq/L (136-145); eGFR For African Americans > 60 (> 60); eGFR For Non-African Americans > 60 (> 60)
[2021-01-15 12:46] LABS: Bilirubin,Urine Negative (Negative); Blood,Urine Negative (Negative); Clarity,Urine Clear (Clear); Color,Urine Yellow (Yellow); Glucose,Urine (UA) Normal (Normal); Ketones,Urine Negative (Negative); Leukocyte Esterase,Urine Negative (Negative); Nitrite,Urine Negative (Negative); PH,Urine 5.5 pH Units (5.0-8.0); Protein,Urine Trace mg/dL (Neg-Trace); Specific Gravity,Urine 1.027 (1.010-1.025); Urobilinogen,Urine Normal (Normal)
[2021-01-15] MEDS ORDERED: Ondansetron 4 MG/2 ML VIAL IVP PRN (14:21)
[2021-01-15] MEDS ORDERED: Naloxone 0.4 MG/ML INJ IVP PRN (14:21)
[2021-01-15] MEDS ORDERED: 0.9 % Sodium Chloride 1,000 ML IVC SCH (14:30)
[2021-01-15 15:58] LABS: Thyroid Stimulating Hormone 2.365 mcIU/mL (0.340-5.600)
[2021-01-15 16:15] LABS: Folate > 22.3 ng/mL (3.0-16.0); Vitamin B12 574 pg/mL (250-1100)
[2021-01-15] MEDS: Isosorbide MONOnitrate (24 HR) 30 MG TAB.ER.24H PO SCH (17:23)
[2021-01-15] MEDS: *HR* Heparin 5,000 UNIT/ML VIAL SQ SCH (17:23)
[2021-01-16 03:36] LABS: Basophils # 0.1 K/mcL (0.0-0.2); Eosinophils # 0.2 K/mcL (0.0-0.6); Eosinophils % 1.6 %; Hematocrit 47.1 % (37.5-50.1); Hemoglobin 15.2 g/dL (12.9-16.9); Immature Granulocytes % 0.5 % (0-4); Lymphocytes # 1.7 K/mcL (0.6-4.6); Lymphocytes % 16.6 %; Mean Corpuscular HGB Conc 32.3 g/dL (31.6-35.5); Mean Corpuscular Hemoglobin 31.1 pg (28.0-33.3); Mean Corpuscular Volume 96.3 fL (83.0-100.0); Mean Platelet Volume 11.2 fL (9.4-12.4); Monocytes % 9.6 %; Neutrophils # 7.4 K/mcL (1.6-8.9); Platelet Count 193 K/mcL (140-400); Red Blood Count 4.89 M/mcL (4.19-5.50); Red Cell Distribution Width 13.9 % (11.5-14.5); Segmented Neutrophils % 70.7 %; White Blood Count 10.5 K/mcL (4.3-11.1)
[2021-01-16 03:53] LABS: Alanine Aminotransferase 13 Units/L (7-52); Albumin 3.9 g/dL (3.5-5.7); Albumin/Globulin Ratio 1.4 (1.1-2.2); Alkaline Phosphatase 102 Units/L (34-104); Aspartate Amino Transferase 17 Units/L (13-39); BUN/Creatinine Ratio 16 (6-26); Blood Urea Nitrogen 10 mg/dL (8-23); Calcium 8.8 mg/dL (8.6-10.3); Carbon Dioxide 29 mEq/L (23-29); Chloride 104 mEq/L (98-107); Globulin 2.7 g/dL (2.4-3.5); Glucose 95 mg/dL (70-105); Osmolality,Calculated 291 (280-300); Potassium 3.6 mEq/L (3.5-5.1); Sodium 141 mEq/L (136-145); Total Protein 6.6 g/dL (6.4-8.9); eGFR For African Americans > 60 (> 60); eGFR For Non-African Americans > 60 (> 60)
[2021-01-16] MEDS: *HR* Heparin 5,000 UNIT/ML VIAL SQ SCH ×2 (05:58→16:12)
[2021-01-16] MEDS: Aspirin 81 MG TAB.CHEW PO SCH (08:50)
[2021-01-16] MEDS: Metoprolol XL (24 HR) Succ 25 MG TAB.ER.24H PO SCH (08:50)
[2021-01-16] MEDS: Furosemide 40 MG TABLET PO SCH (08:50)
[2021-01-16] MEDS ORDERED: *HR* Dextrose 50 % in Water (Vial) 50 ML VIAL IVP PRN (11:38)
[2021-01-16] MEDS ORDERED: Dextrose Gel 15 GM/37.5 ML TUBE PO PRN ×2 (11:38)
[2021-01-16] MEDS ORDERED: D5% in Water 1,000 ML IVC PRN (11:38)
[2021-01-16] MEDS: Acetaminophen 325 MG TABLET PO PRN (16:12)
[2021-01-16] MEDS: Isosorbide MONOnitrate (24 HR) 30 MG TAB.ER.24H PO SCH (16:12)
[2021-01-17] MEDS: *HR* Heparin 5,000 UNIT/ML VIAL SQ SCH ×2 (05:43→17:24)
[2021-01-17 07:59] LABS: Basophils # 0.1 K/mcL (0.0-0.2); Basophils % 0.5 %; Eosinophils # 0.1 K/mcL (0.0-0.6); Eosinophils % 0.7 %; Hemoglobin 14.4 g/dL (12.9-16.9); Immature Granulocytes % 0.2 % (0-4); Lymphocytes # 1.1 K/mcL (0.6-4.6); Lymphocytes % 8.5 %; Mean Corpuscular Hemoglobin 31.6 pg (28.0-33.3); Mean Corpuscular Volume 98.9 fL (83.0-100.0); Mean Platelet Volume 11.7 fL (9.4-12.4); Monocytes # 1.2 K/mcL (0.0-1.3); Monocytes % 9.2 %; Neutrophils # 10.7 K/mcL (1.6-8.9); Platelet Count 176 K/mcL (140-400); Red Blood Count 4.55 M/mcL (4.19-5.50); Red Cell Distribution Width 14.2 % (11.5-14.5); Segmented Neutrophils % 80.9 %; White Blood Count 13.2 K/mcL (4.3-11.1)
[2021-01-17 09:05] LABS: BUN/Creatinine Ratio 31 (6-26); Blood Urea Nitrogen 19 mg/dL (8-23); Calcium 8.9 mg/dL (8.6-10.3); Carbon Dioxide 25 mEq/L (23-29); Chloride 106 mEq/L (98-107); Creatine Kinase 35 Units/L (30-223); Glucose 109 mg/dL (70-105); Osmolality,Calculated 293 (280-300); Potassium 3.6 mEq/L (3.5-5.1); Sodium 140 mEq/L (136-145); eGFR For African Americans > 60 (> 60); eGFR For Non-African Americans > 60 (> 60)
[2021-01-17] MEDS: Cholecalciferol (D-3) 1,000 UNIT (25MCG) TABLET PO SCH (09:33)
[2021-01-17] MEDS: Metoprolol XL (24 HR) Succ 25 MG TAB.ER.24H PO SCH (09:33)
[2021-01-17] MEDS: Furosemide 40 MG TABLET PO SCH (09:33)
[2021-01-17] MEDS: Aspirin 81 MG TAB.CHEW PO SCH (09:33)
[2021-01-17] MEDS: Thiamine (B-1) 100 MG TABLET PO SCH (09:33)
[2021-01-17] MEDS: Isosorbide MONOnitrate (24 HR) 30 MG TAB.ER.24H PO SCH (17:25)
[2021-01-17] MEDS: Acetaminophen 325 MG TABLET PO PRN (17:25)
[2021-01-17 19:53] LABS: Influenza A PCR Negative (Negative); Influenza B PCR Negative (Negative); Resp. Syncytial Virus PCR Negative (Negative)
[2021-01-17 20:31] LABS: SARS-CoV-2 by PCR (In House) Negative (Negative)
[2021-01-18] MEDS: Acetaminophen 325 MG TABLET PO PRN ×2 (02:28→09:55)
[2021-01-18] MEDS: *HR* Heparin 5,000 UNIT/ML VIAL SQ SCH (05:13)
[2021-01-18] MEDS: Furosemide 40 MG TABLET PO SCH (09:56)
[2021-01-18] MEDS: Aspirin 81 MG TAB.CHEW PO SCH (09:56)
[2021-01-18] MEDS: Cholecalciferol (D-3) 1,000 UNIT (25MCG) TABLET PO SCH (09:57)
[2021-01-18] MEDS: Metoprolol XL (24 HR) Succ 25 MG TAB.ER.24H PO SCH (09:57)
[2021-01-18] MEDS: Thiamine (B-1) 100 MG TABLET PO SCH (09:57)
[2021-01-18 11:40] VITALS: BP 143/87
== END 2021-01-18 14:45 | DRG 881 ==
LOC: EMEROOARM 10:32 → 3ANU 10:32 → SUATTDRO 21:00
PROVIDERS: ADMIT Internal Medicine; ATTEND Student in an Organized Health Care Education/Training Program

== ENCOUNTER 2022-08-04 09:00 | Inpatient (IN) ==
[2022-08-04] MEDS ORDERED: Iopamidol - 370 500 ML MLS IVP ONE (09:46)
[2022-08-04 10:09] LABS: Basophils % 0.2 %; Hematocrit 38.1 % (37.5-50.1); Hemoglobin 12.5 g/dL (12.9-16.9); Immature Granulocytes % 0.5 % (0-4); Lymphocytes # 0.8 K/mcL (0.6-4.6); Lymphocytes % 3.5 %; Mean Corpuscular HGB Conc 32.8 g/dL (31.6-35.5); Mean Corpuscular Hemoglobin 31.6 pg (28.0-33.3); Mean Corpuscular Volume 96.2 fL (83.0-100.0); Mean Platelet Volume 10.3 fL (9.4-12.4); Monocytes # 2.3 K/mcL (0.0-1.3); Monocytes % 10.3 %; Platelet Count 192 K/mcL (140-400); Red Blood Count 3.96 M/mcL (4.19-5.50); Red Cell Distribution Width 13.5 % (11.5-14.5); Segmented Neutrophils % 85.5 %; White Blood Count 22.2 K/mcL (4.3-11.1)
[2022-08-04 10:14] LABS: Amorphous Sediment,Urine Moderate per hpf (None-Few); Bacteria,Urine Moderate per hpf (None-Few); Bilirubin,Urine Small (Negative); Blood,Urine Large (Negative); Clarity,Urine Turbid (Clear); Color,Urine Yellow (Yellow); Glucose,Urine (UA) Normal (Normal); Hyaline Casts,Urine Few per lpf (None Seen); Ketones,Urine Trace mg/dL (Negative); Leukocyte Esterase,Urine Large (Negative); Mucus,Urine Few per lpf (None-Few); Nitrite,Urine Negative (Negative); PH,Urine 5.5 pH Units (5.0-8.0); Protein,Urine 100 mg/dL (Neg-Trace); RBC,Urine 30-50 per hpf (0-3); Specific Gravity,Urine 1.024 (1.010-1.025); Transitional Epi Cells,Urine Few per hpf (None-Few); WBC,Urine TNTC per hpf (0-3)
[2022-08-04 10:20] LABS: VBG HCO3 30 mEq/L (21-27); VBG PCO2 52 mmHg (41-51); VBG PH 7.37 pH Units (7.32-7.42); VBG PO2 53 mmHg (25-50)
[2022-08-04 10:31] LABS: BUN/Creatinine Ratio 22 (6-26); Blood Urea Nitrogen 25 mg/dL (8-23); Calcium 9.2 mg/dL (8.6-10.3); Carbon Dioxide 28 mEq/L (23-29); Chloride 104 mEq/L (98-107); Glucose 109 mg/dL (70-105); Magnesium 1.7 mg/dL (1.6-2.6); Osmolality,Calculated 293 (280-300); Sodium 139 mEq/L (136-145)
[2022-08-04 10:32] LABS: Troponin I < 0.03 ng/mL (< 0.04)
[2022-08-04] MEDS ORDERED: cefTRIAXone 2,000 MG in 0.9 % Sodium Chloride 20 ML IVP ONE (10:41)
[2022-08-04] MEDS ORDERED: 0.9 % Sodium Chloride 1,000 ML IVC ONE (10:50)
[2022-08-04] MEDS ORDERED: MOM Conc 10 ML UD.LIQ PO PRN ×2 (12:20→15:10)
[2022-08-04] MEDS ORDERED: Ondansetron 4 MG/2 ML VIAL IVP PRN ×2 (12:20→15:10)
[2022-08-04] MEDS ORDERED: Naloxone 0.4 MG/ML INJ IVP PRN ×2 (12:20→15:10)
[2022-08-04] MEDS ORDERED: *HR* Dextrose 50 % in Water (Syg) 50 ML SYRINGE IVP PRN ×2 (12:20→15:10)
[2022-08-04] MEDS ORDERED: Acetaminophen 325 MG TABLET PO PRN ×2 (12:20→15:10)
[2022-08-04] MEDS ORDERED: Mag Hydrox/Al Hydrox/Simeth 30 ML UDC PO PRN ×2 (12:20→15:10)
[2022-08-04] MEDS ORDERED: D5% in Water 1,000 ML IVC PRN ×2 (12:20→15:10)
[2022-08-04] MEDS ORDERED: Dextrose Gel 15 GM/37.5 ML TUBE PO PRN ×4 (12:20→15:10)
[2022-08-04] MEDS ORDERED: Ringers Solution, Lactated 1,000 ML IVC SCH (12:30)
[2022-08-04] MEDS ORDERED: Lidocaine -MPF 2% 2 ML VIAL ONE ×2 (13:28→14:34)
[2022-08-04] MEDS ORDERED: *HR* Propofol 200 MG/20 ML VIAL IVP ONE (13:28)
[2022-08-04] MEDS ORDERED: *HR* FentaNYL (PF) 100 MCG/2 ML VIAL ONE (13:28)
[2022-08-04] MEDS ORDERED: *HR* Succinylcholine 200 MG/10 ML VIAL IVP ONE (13:36)
[2022-08-04] MEDS ORDERED: Lidocaine HCL 4 ML Topical Solution (Laryng-O-Jet Kit Sterile Pak) TP ONE (13:36)
[2022-08-04] MEDS ORDERED: Iopamidol - 300 50 ML VIAL ONE (13:38)
[2022-08-04] MEDS ORDERED: Famotidine 20 MG/2 ML VIAL ONE (13:59)
[2022-08-04] MEDS ORDERED: Acetaminophen IV 1,000 MG/100 ML BAG IVPB ONE (14:02)
[2022-08-04] MEDS ORDERED: *HR* Phenylephrine 10 MG/ML VIAL ONE (14:34)
[2022-08-04] MEDS: Ringers Solution, Lactated 1,000 ML IVC SCH (16:28)
[2022-08-04] MEDS ORDERED: Insulin LISPRO 300 UNITS/3 ML VIAL SUBQ SCH (18:00)
[2022-08-04] MEDS: Insulin LISPRO 300 UNITS/3 ML VIAL SUBQ SCH (18:39)
[2022-08-05] MEDS: Insulin LISPRO 300 UNITS/3 ML VIAL SUBQ SCH ×5 (00:35→20:27)
[2022-08-05 03:19] LABS: Basophils % 0.1 %; Hematocrit 35.6 % (37.5-50.1); Hemoglobin 11.5 g/dL (12.9-16.9); Immature Granulocytes % 0.7 % (0-4); Lymphocytes # 0.7 K/mcL (0.6-4.6); Lymphocytes % 3.1 %; Mean Corpuscular HGB Conc 32.3 g/dL (31.6-35.5); Mean Corpuscular Hemoglobin 31.2 pg (28.0-33.3); Mean Corpuscular Volume 96.5 fL (83.0-100.0); Mean Platelet Volume 10.9 fL (9.4-12.4); Monocytes # 1.1 K/mcL (0.0-1.3); Monocytes % 5.2 %; Neutrophils # 19.1 K/mcL (1.6-8.9); Platelet Count 182 K/mcL (140-400); Red Blood Count 3.69 M/mcL (4.19-5.50); Red Cell Distribution Width 13.4 % (11.5-14.5); Segmented Neutrophils % 90.9 %
[2022-08-05 03:41] LABS: Alanine Aminotransferase 14 Units/L (7-52); Albumin 3.2 g/dL (3.5-5.7); Albumin/Globulin Ratio 1.2 (1.1-2.2); Alkaline Phosphatase 94 Units/L (34-104); Aspartate Amino Transferase 17 Units/L (13-39); BUN/Creatinine Ratio 26 (6-26); Bilirubin,Total 0.5 mg/dL (0.3-1.0); Blood Urea Nitrogen 22 mg/dL (8-23); Calcium 8.5 mg/dL (8.6-10.3); Carbon Dioxide 25 mEq/L (23-29); Chloride 108 mEq/L (98-107); Globulin 2.7 g/dL (2.4-3.5); Glucose 126 mg/dL (70-105); Magnesium 1.7 mg/dL (1.6-2.6); Osmolality,Calculated 295 (280-300); Potassium 3.7 mEq/L (3.5-5.1); Sodium 140 mEq/L (136-145); Total Protein 5.9 g/dL (6.4-8.9)
[2022-08-05] MEDS: Ringers Solution, Lactated 1,000 ML IVC SCH (05:43)
[2022-08-05] MEDS: cefTRIAXone 2,000 MG in 0.9 % Sodium Chloride 20 ML IVP SCH (08:10)
[2022-08-05] MEDS ORDERED: cefTRIAXone 2,000 MG in 0.9 % Sodium Chloride 20 ML IVP SCH (09:00)
[2022-08-05 11:07] LABS: Enterococcus faecalis by PCR Not Detected (Not Detect); Enterococcus faecium by PCR Not Detected (Not Detect); mecA/C Methicillin-Resist Gene DETECTED (Not Detect)
[2022-08-05 11:08] LABS: A.calcoaceticus-baumannii cplx Not Detected (Not Detect); Bacteroides fragilis by PCR Not Detected (Not Detect); Candida albicans by PCR Not Detected (Not Detect); Candida auris by PCR Not Detected (Not Detect); Candida glabrata by PCR Not Detected (Not Detect); Candida krusei by PCR Not Detected (Not Detect); Candida parapsilosis by PCR Not Detected (Not Detect); Candida tropicalis by PCR Not Detected (Not Detect); Crypto. neoformans/gattii PCR Not Detected (Not Detect); Enterobacter cloacae Cmplx PCR Not Detected (Not Detect); Enterobacterales by PCR Not Detected (Not Detect); Escherichia coli by PCR Not Detected (Not Detect); Klebs. pneumoniae group by PCR Not Detected (Not Detect); Klebsiella aerogenes by PCR Not Detected (Not Detect); Klebsiella oxytoca by PCR Not Detected (Not Detect); Proteus by PCR Not Detected (Not Detect); Pseudomonas aeruginosa by PCR Not Detected (Not Detect); Salmonella species by PCR Not Detected (Not Detect); Serratia marcescens by PCR Not Detected (Not Detect); Staph epidermidis by PCR DETECTED (Not Detect); Staph lugdunensis by PCR Not Detected (Not Detect); Staphylococcus aureus by PCR Not Detected (Not Detect); Stenotrophomonas maltophilia Not Detected (Not Detect); Streptococcus agalactiae(B)PCR Not Detected (Not Detect); Streptococcus by PCR Not Detected (Not Detect); Streptococcus pneumoniae PCR Not Detected (Not Detect); Streptococcus pyogenes (A) PCR Not Detected (Not Detect)
[2022-08-06] MEDS: Insulin LISPRO 300 UNITS/3 ML VIAL SUBQ SCH ×4 (08:40→21:49)
[2022-08-06 09:44] LABS: Basophils % 0.3 %; Eosinophils # 0.1 K/mcL (0.0-0.6); Eosinophils % 0.7 %; Hematocrit 37.7 % (37.5-50.1); Hemoglobin 12.3 g/dL (12.9-16.9); Immature Granulocytes % 0.4 % (0-4); Lymphocytes % 7.4 %; Mean Corpuscular HGB Conc 32.6 g/dL (31.6-35.5); Mean Corpuscular Hemoglobin 31.2 pg (28.0-33.3); Mean Corpuscular Volume 95.7 fL (83.0-100.0); Mean Platelet Volume 10.9 fL (9.4-12.4); Monocytes # 1.4 K/mcL (0.0-1.3); Monocytes % 10.2 %; Neutrophils # 10.9 K/mcL (1.6-8.9); Platelet Count 197 K/mcL (140-400); Red Blood Count 3.94 M/mcL (4.19-5.50); Red Cell Distribution Width 13.5 % (11.5-14.5); White Blood Count 13.4 K/mcL (4.3-11.1)
[2022-08-06 10:00] LABS: BUN/Creatinine Ratio 26 (6-26); Blood Urea Nitrogen 20 mg/dL (8-23); Calcium 8.7 mg/dL (8.6-10.3); Carbon Dioxide 26 mEq/L (23-29); Chloride 109 mEq/L (98-107); Glucose 110 mg/dL (70-105); Osmolality,Calculated 295 (280-300); Potassium 3.5 mEq/L (3.5-5.1); Sodium 141 mEq/L (136-145)
[2022-08-06] MEDS: Zinc Sulfate 220 MG CAPSULE PO SCH (10:22)
[2022-08-06] MEDS: PARoxetine 20 MG TABLET PO SCH (10:22)
[2022-08-06] MEDS: Cholecalciferol (D-3) 1,000 UNIT (25MCG) TABLET PO SCH (10:22)
[2022-08-06] MEDS: Folic Acid 1 MG TABLET PO SCH (10:22)
[2022-08-06] MEDS: Multivit/Ca/Min/Fe/FA 1 TAB TABLET PO SCH (10:22)
[2022-08-06] MEDS: Isosorbide MONOnitrate (24 HR) 30 MG TAB.ER.24H PO SCH (10:22)
[2022-08-06] MEDS: Ascorbic Acid 500 MG TABLET PO SCH (10:22)
[2022-08-06] MEDS: Thiamine (B-1) 100 MG TABLET PO SCH (10:22)
[2022-08-06] MEDS: Metoprolol XL (24 HR) Succ 50 MG TAB.ER.24H PO SCH (10:22)
[2022-08-06] MEDS: cefTRIAXone 2,000 MG in 0.9 % Sodium Chloride 20 ML IVP SCH (14:35)
[2022-08-07 05:30] LABS: Basophils % 0.5 %; Eosinophils # 0.1 K/mcL (0.0-0.6); Eosinophils % 1.3 %; Hematocrit 35.1 % (37.5-50.1); Hemoglobin 11.4 g/dL (12.9-16.9); Immature Granulocytes % 0.2 % (0-4); Lymphocytes # 1.1 K/mcL (0.6-4.6); Lymphocytes % 12.2 %; Mean Corpuscular HGB Conc 32.5 g/dL (31.6-35.5); Mean Corpuscular Hemoglobin 31.2 pg (28.0-33.3); Mean Corpuscular Volume 96.2 fL (83.0-100.0); Mean Platelet Volume 10.7 fL (9.4-12.4); Monocytes # 1.2 K/mcL (0.0-1.3); Monocytes % 13.5 %; Neutrophils # 6.2 K/mcL (1.6-8.9); Platelet Count 202 K/mcL (140-400); Red Blood Count 3.65 M/mcL (4.19-5.50); Red Cell Distribution Width 13.4 % (11.5-14.5); Segmented Neutrophils % 72.3 %; White Blood Count 8.6 K/mcL (4.3-11.1)
[2022-08-07 05:41] LABS: BUN/Creatinine Ratio 22 (6-26); Blood Urea Nitrogen 15 mg/dL (8-23); Calcium 8.3 mg/dL (8.6-10.3); Carbon Dioxide 28 mEq/L (23-29); Chloride 109 mEq/L (98-107); Glucose 101 mg/dL (70-105); Osmolality,Calculated 295 (280-300); Potassium 3.2 mEq/L (3.5-5.1); Sodium 142 mEq/L (136-145)
[2022-08-07] MEDS: Insulin LISPRO 300 UNITS/3 ML VIAL SUBQ SCH ×4 (08:15→23:17)
[2022-08-07] MEDS: Isosorbide MONOnitrate (24 HR) 30 MG TAB.ER.24H PO SCH (10:05)
[2022-08-07] MEDS: Folic Acid 1 MG TABLET PO SCH (10:05)
[2022-08-07] MEDS: Furosemide 20 MG TABLET PO SCH (10:05)
[2022-08-07] MEDS: Zinc Sulfate 220 MG CAPSULE PO SCH (10:05)
[2022-08-07] MEDS: Metoprolol XL (24 HR) Succ 50 MG TAB.ER.24H PO SCH (10:05)
[2022-08-07] MEDS: Ascorbic Acid 500 MG TABLET PO SCH (10:05)
[2022-08-07] MEDS: Multivit/Ca/Min/Fe/FA 1 TAB TABLET PO SCH (10:05)
[2022-08-07] MEDS: PARoxetine 20 MG TABLET PO SCH (10:05)
[2022-08-07] MEDS: cefTRIAXone 2,000 MG in 0.9 % Sodium Chloride 20 ML IVP SCH (10:06)
[2022-08-07] MEDS: Thiamine (B-1) 100 MG TABLET PO SCH (10:06)
[2022-08-07] MEDS: Cholecalciferol (D-3) 1,000 UNIT (25MCG) TABLET PO SCH (10:06)
[2022-08-08] MEDS: Insulin LISPRO 300 UNITS/3 ML VIAL SUBQ SCH ×2 (08:18→12:10)
[2022-08-08 08:56] LABS: Basophils % 0.5 %; Eosinophils # 0.2 K/mcL (0.0-0.6); Eosinophils % 1.8 %; Immature Granulocytes % 0.4 % (0-4); Lymphocytes # 1.2 K/mcL (0.6-4.6); Lymphocytes % 14.7 %; Mean Corpuscular HGB Conc 33.3 g/dL (31.6-35.5); Mean Corpuscular Hemoglobin 31.6 pg (28.0-33.3); Mean Corpuscular Volume 94.7 fL (83.0-100.0); Monocytes % 12.3 %; Neutrophils # 5.8 K/mcL (1.6-8.9); Platelet Count 202 K/mcL (140-400); Red Cell Distribution Width 13.2 % (11.5-14.5); Segmented Neutrophils % 70.3 %; White Blood Count 8.2 K/mcL (4.3-11.1)
[2022-08-08 09:17] LABS: BUN/Creatinine Ratio 19 (6-26); Blood Urea Nitrogen 13 mg/dL (8-23); Calcium 8.2 mg/dL (8.6-10.3); Carbon Dioxide 27 mEq/L (23-29); Chloride 108 mEq/L (98-107); Glucose 82 mg/dL (70-105); Osmolality,Calculated 293 (280-300); Potassium 3.3 mEq/L (3.5-5.1); Sodium 142 mEq/L (136-145)
[2022-08-08] MEDS: Metoprolol XL (24 HR) Succ 50 MG TAB.ER.24H PO SCH (09:38)
[2022-08-08] MEDS: Multivit/Ca/Min/Fe/FA 1 TAB TABLET PO SCH (09:38)
[2022-08-08] MEDS: Furosemide 20 MG TABLET PO SCH (09:38)
[2022-08-08] MEDS: Ascorbic Acid 500 MG TABLET PO SCH (09:38)
[2022-08-08] MEDS: Folic Acid 1 MG TABLET PO SCH (09:38)
[2022-08-08] MEDS: Thiamine (B-1) 100 MG TABLET PO SCH (09:38)
[2022-08-08] MEDS: Zinc Sulfate 220 MG CAPSULE PO SCH (09:39)
[2022-08-08] MEDS: cefTRIAXone 2,000 MG in 0.9 % Sodium Chloride 20 ML IVP SCH (09:39)
[2022-08-08] MEDS: Cholecalciferol (D-3) 1,000 UNIT (25MCG) TABLET PO SCH (09:39)
[2022-08-08] MEDS: Isosorbide MONOnitrate (24 HR) 30 MG TAB.ER.24H PO SCH (09:40)
[2022-08-08] MEDS: PARoxetine 20 MG TABLET PO SCH (09:54)
[2022-08-08 10:53] LABS: Influenza A PCR Negative (Negative); Influenza B PCR Negative (Negative); Resp. Syncytial Virus PCR Negative (Negative)
[2022-08-08 11:02] LABS: SARS-CoV-2 by PCR (In House) Negative (Negative)
[2022-08-08 16:08] VITALS: BP 136/91; PULSE 76; TEMP 98.2; O2SAT 94
== END 2022-08-08 17:17 | DRG 659 ==
LOC: 3ANU 09:00 → EMEROOARM 09:00 → SUATTDRO 12:24 → 3ANU 13:30
PROVIDERS: ADMIT Internal Medicine; ATTEND Family Medicine